=== PATIENT | male | born 1945 | race Caucasian/White ===

== ENCOUNTER 2019-09-11 16:10 | Inpatient (IN) | payer OTHER ==
[~2019-09-11] VITALS: Ht 177.8 cm; Wt 104.3 kg
[~2019-09-11 16:10] MED LIST: MELO7.5 PO; METO50ER PO
[2019-09-11 16:47] LABS: BASOPHILS ABSOLUTE AUTO 0.09 K/mm3 (0.00-0.23); BASOPHILS PERCENT AUTO 1 % (0-2); EOSINOPHILS ABSOLUTE AUTO 0.43 K/mm3 (0.00-0.68); EOSINOPHILS PERCENT AUTO 4 % (0-6); Hematocrit 40.9 % (37.0-53.0); Hemoglobin 12.7 g/dL (13.5-17.5); IMMATURE GRAN ABSOLUTE AUTO 0.45 K/mm3 (0.00-0.10); IMMATURE GRAN PERCENT AUTO 4 % (0-1); LYMPHOCYTES ABSOLUTE AUTO 2.83 K/mm3 (0.84-5.20); LYMPHOCYTES PERCENT AUTO 24 % (21-46); MONOCYTES ABSOLUTE AUTO 1.11 K/mm3 (0.16-1.47); MONOCYTES PERCENT AUTO 10 % (4-13); Mean Corpuscular HGB 31.2 pg (26.0-34.0); Mean Corpuscular HGB Conc 31.1 g/dL (31.5-36.5); Mean Corpuscular Volume 101 fL (80-100); Mean Platelet Volume 11.4 fL (9.1-12.4); NEUTROPHILS ABSOLUTE AUTO 6.74 K/mm3 (1.96-9.15); NEUTROPHILS PERCENT AUTO 58 % (41-73); NRBC ABSOLUTE 0.04 K/mm3 (0.00-0.02); NRBC Auto 0.3 /100 WBC (0.0-0.2); Platelet Count 197 K/mm3 (150-400); RDW Coefficient Variation 15.7 % (11.7-14.2); RDW Standard Deviation 58.4 fL (35.1-46.3); Red Blood Cell Count 4.07 M/mm3 (4.30-5.90); White Blood Cell Count 11.65 K/mm3 (4.00-11.30)
[2019-09-11 17:00] LABS: Alanine Aminotransfer (ALT/SGP 34 U/L (12-78); Albumin, Blood 3.6 g/dL (3.4-5.0); Alk Phos 121 U/L (50-136); Anion Gap 3 mmol/L (6-16); Aspartate Aminotrans (AST/SGOT 42 U/L (12-37); Bilirubin, Total 1.2 mg/dL (0.1-1.0); Blood Urea Nitrogen 10 mg/dL (8-24); Bun/Creatinine Ratio 15.5 (12.0-20.0); CO2, Blood 27 mmol/L (21-32); Calcium, Blood 8.5 mg/dL (8.5-10.1); Chloride, Blood 113 mmol/L (98-108); Creatinine, Blood 0.65 mg/dL (0.60-1.20); Globulin, Blood 3.5 g/dL (2.2-4.0); Glomerular Filtration Rate >60 (60-); Glucose, Blood 156 mg/dL (70-99); Potassium, Blood 3.4 mmol/L (3.5-5.5); Sodium, Blood 143 mmol/L (136-145); Total Protein, Blood 7.1 g/dL (6.4-8.2)
[2019-09-11 17:22] LABS: PCO2 Arterial 52.1 mmHg (35-45); PO2 Arterial 65.3 mmHg (80-100)
[2019-09-11 17:23] LABS: pH Blood Arterial 7.29 (7.35-7.45)
[2019-09-11] MEDS ORDERED: LISI20 PO (17:46)
[2019-09-11] MEDS ORDERED: ATOR40TA PO (17:46)
[2019-09-11] MEDS ORDERED: FURO20 PO (17:47)
[2019-09-11] MEDS ORDERED: PRAZ5 PO (17:47)
[2019-09-11] MEDS ORDERED: TIMO.5OPSO BOTHEYES (17:47)
[2019-09-11] MEDS ORDERED: ALBU90OI INH (17:49)
[2019-09-11] MEDS ORDERED: SPIRIVA RESPIMAT4 GM INH (17:49)
[2019-09-11] MEDS ORDERED: AMLO5 PO (17:50)
[2019-09-11] MEDS ORDERED: WARF5 PO (17:51)
[2019-09-11] MEDS ORDERED: Thera-M1 EACH PO (17:51)
[2019-09-11 18:02] LABS: International Normalized Ratio 2.69; Prothrombin Time Results 27.2 Sec (9.7-11.5)
[2019-09-11 18:55] LABS: Magnesium, Blood 2.1 mg/dL (1.6-2.4); Troponin I 0.042 ng/mL (0.000-0.040)
--- NOTE | 2019-09-11 19:00 | NUR ---
ASSUMED CARE NOTE: ASSUMED CARE OF PT @ 1900, RECEVIED BEDSIDE REPORT FROM TATUM BROWN. DR. LOPEZ AT BED SIDE AT THIS TIME. PT IS INTUBATED AND SEDATED WITH 40MCG/KG/MIN OF PROPOFOL. VENT SETTING @ AC18/450/10/100%, SPO2 90%. PT IS HAVING LARGE AMOUNTS OF THIN BLOOD TINGED SPUTUM. ORAL AND ET SUCTION PROVIDED. RT @ BEDSIDE. PT IS IN AFIB WITH A SLOW VENTRICULAR RESPONSE, PHYSICAN IS AWARE. PT'S HR IS BETWEEN 35-70'S. PT'S ABDOMEN IS DISTENDED AND FIRM. STRONG PLUSES TO BUE. SCHAEFFER PATENT AND DRAINING YELLOW URINE WITH SEDIMENT. SEE ADMISSION ASSSESSMENT FOR FULL ASSESSMENT. BILAT SOFT WRIST RESTRAINTS INITIATED TO PREVENT SELF- EXTUBATION.
--- NOTE | 2019-09-11 19:30 | NUR ---
AT BEDSIDE PREFORMING BRONCHOSCOPY. 50MCG OF FENTYNAL GIVEN FOR PROCEDURE. VITALS STABLE, HR IN THE 70'S. 2GRAMS OF MAGNESIUM GIVEN PER DR. DEL RIO.
[2019-09-11 20:30] LABS: BASOPHILS ABSOLUTE AUTO 0.04 K/mm3 (0.00-0.23); BASOPHILS PERCENT AUTO 0 % (0-2); EOSINOPHILS ABSOLUTE AUTO 0.11 K/mm3 (0.00-0.68); EOSINOPHILS PERCENT AUTO 1 % (0-6); Hematocrit 36.4 % (37.0-53.0); Hemoglobin 11.6 g/dL (13.5-17.5); IMMATURE GRAN ABSOLUTE AUTO 0.11 K/mm3 (0.00-0.10); IMMATURE GRAN PERCENT AUTO 1 % (0-1); LYMPHOCYTES ABSOLUTE AUTO 0.74 K/mm3 (0.84-5.20); LYMPHOCYTES PERCENT AUTO 5 % (21-46); MONOCYTES ABSOLUTE AUTO 1.57 K/mm3 (0.16-1.47); MONOCYTES PERCENT AUTO 10 % (4-13); Mean Corpuscular HGB 31.2 pg (26.0-34.0); Mean Corpuscular HGB Conc 31.9 g/dL (31.5-36.5); Mean Corpuscular Volume 98 fL (80-100); Mean Platelet Volume 11.6 fL (9.1-12.4); NEUTROPHILS ABSOLUTE AUTO 12.76 K/mm3 (1.96-9.15); NEUTROPHILS PERCENT AUTO 83 % (41-73); Platelet Count 182 K/mm3 (150-400); RDW Coefficient Variation 15.7 % (11.7-14.2); RDW Standard Deviation 56.5 fL (35.1-46.3); Red Blood Cell Count 3.72 M/mm3 (4.30-5.90); White Blood Cell Count 15.33 K/mm3 (4.00-11.30)
--- NOTE | 2019-09-11 21:00 | NUR ---
ORDERS GIVEN TO TRANSFUSE 2 UNITS OF FFP, AND VITAMIN K. VENT SETTINGS CHANGED TO AC18/450/12/80%. HR HAS BEEN STEADLY IN THE 50'S
[2019-09-11 21:48] LABS: Base Excess Venous 0.8 mmol/L; Bicarbonate Venous 24.6 mmol/L (24.0-30.0); PCO2 Venous 45.2 mmHg (38-42); PO2 Venous 53.6 mmHg (38-42); pH Blood Venous 7.37 (7.34-7.37)
--- NOTE | 2019-09-12 00:05 | NUR ---
UPDATE: PT'S VENT SETTINGS CHANGED TO AC18/450/12/70%, PER DR. LOPEZ. HR HAS BEEN BETWEEN 30-45.
[2019-09-12 03:50] LABS: Hematocrit 36.5 % (37.0-53.0); Hemoglobin 11.5 g/dL (13.5-17.5); Mean Corpuscular HGB 30.7 pg (26.0-34.0); Mean Corpuscular HGB Conc 31.5 g/dL (31.5-36.5); Mean Corpuscular Volume 98 fL (80-100); Mean Platelet Volume 11.5 fL (9.1-12.4); Platelet Count 174 K/mm3 (150-400); RDW Coefficient Variation 15.8 % (11.7-14.2); RDW Standard Deviation 56.4 fL (35.1-46.3); Red Blood Cell Count 3.74 M/mm3 (4.30-5.90); White Blood Cell Count 13.47 K/mm3 (4.00-11.30)
[2019-09-12 04:05] LABS: International Normalized Ratio 1.73
[2019-09-12 04:10] LABS: Anion Gap 6 mmol/L (6-16); Blood Urea Nitrogen 12 mg/dL (8-24); Bun/Creatinine Ratio 15.2 (12.0-20.0); CO2, Blood 28 mmol/L (21-32); Calcium, Blood 8.2 mg/dL (8.5-10.1); Chloride, Blood 113 mmol/L (98-108); Creatinine, Blood 0.79 mg/dL (0.60-1.20); Glomerular Filtration Rate >60 (60-); Glucose, Blood 106 mg/dL (70-99); Sodium, Blood 147 mmol/L (136-145)
[2019-09-12 04:35] LABS: Prothrombin Time Results 17.9 Sec (9.7-11.5)
--- NOTE | 2019-09-12 05:17 | NUR ---
SHIFT SUMMARY: SEE PREVIOUS NOTES. PT CONTINUES TO BE INTUBATED AND SEDATED WITH PROPOFOL @ 40MCG/KG/HR. VENT SETTINGS @ AC18/450/12/50%, SPO2 ABOVE 95%. PT HAS BEEN HAVING MODERATE AMOUNTS OF THICK BLOODY TINGED SPUTUM. OG TUBE IS SUCTIONED TO INTERMIT SUCTION, 900 TOTAL DRAINED, DRAINIAGE IS MAROON COLOREDM, COFFEE GROUNDS NOTED. PT CONTINUES TO HAVE EXCESSIVE AMOUNT OF ORAL SECRETIONS. BED AT 45 DEGRESS. PT HAS BEEN IN A-FIB WITH SVR, HR BETWEEN 35-55, AT TIMES IT HAS BEEN LOW 32 BPM. BP HAS BEEN STABLE. POTASSIUM REPLACEMNT IS CURRENTLY INFUSING. NS RUNNING @ 100ML/HR. SCHAEFFER IS NOW DRAINING ARIEL COLOR URINE WITH SEDIMENT. WILL CONTINUE TO MONITOR PT UNTIL REPORT IS GIVEN TO ONCOMING SHIFT.
--- NOTE | 2019-09-12 07:05 | NUR ---
DR. JESIKA CANCHOLA ROUNDED ON PT. DISCUSSED CASE. PT WILL NEED AICD PRIOR TO DISCHARGE. DISCUSSED POSSIBLE TEMPORARY PACEMAKER PLACEMENT. WILL RE-ASSESS PT LATER. WILL CALL WITH ANY NOTED PAUSES OR WORSENING BRADYCARDIA.
--- NOTE | 2019-09-12 08:00 | NUR ---
ASSUMED CARE ASSUMED CARE OF PT AT 0700. BEDSIDE REPORT RECEIVED FROM TATUM BIRD. PT INTUBATED AND SEDATED. VENT SETTINGS AC 18, TV 450, PEEP 12, FIO2 100%, SATS MID 90'S. MONITOR SHOWS A FIB WITH BRADYCARDIA, HR MOSTLY 40'S-50'S, OCCASIONAL DIPS TO THE 30'S, BP STABLE WITH MAP >65. LUNG SOUNDS CLEAR UPPERS, COARSE IN LOWER LOBES. OG TUBE IN PLACE TO LOW INT SUCTION, SMALL AMT COFFEE GROUND MATERIAL IN TUBE. ABDOMEN ROUND, FIRM, BT'S HYPOACTIVE. PT HAS SCHAEFFER CATHETER IN PLACE DRAINING ARIEL/GREEN URINE TO GRAVITY. [address] WITH PROPOFOL INFUSING AT 40MCG/KG AND NS AT 100ML/HR. JOSE MIGUEL SOFT WRIST RESTRAINTS IN PLACE TO PROTECT LINES, TUBES. WILL CONTINUE TO MONITOR PT.
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
--- NOTE | 2019-09-12 10:30 | NUR ---
DR. XAVIER PARK ROUNDED ON PT. DECREASED PEEP TO 10. NO ADDITIONAL ORDERS RECEIVED AT THIS TIME.
--- NOTE | 2019-09-12 13:27 | NUR ---
EMANATIONS ANALYSIS TECHNICIAN EMANATIONS ANALYSIS TECHNICIAN TATUM BHATIA AND ALBERTO HERE TO TRANSPORT PT DOWN TO LAB FOR TEMPORARY PACEMAKER INSERTION. RT ACCOMPANYING ON TRANSPORT. VITAL SIGNS STABLE ON TRANSPORT. PROPOFOL INFUSING AT 40 MCG/KG AND NS AT 100ML/HR.
--- NOTE | 2019-09-12 15:38 | NUR ---
PT RECEIVED BACK FROM SHUTTLE OPERATOR WITH TRANSVENOUS PACEMAKER TO [facility]. PACER SETTINGS VVI RATE 60, 10 MV AND 10V. MONITOR SHOWING INTERMITTENT PACING, HR 60-80'S. BP STABLE.
--- NOTE | 2019-09-12 15:57 | NUR ---
NOTED LOSS OF CAPTURE INTERMITTENTLY. CALL TO DR CANCHOLA. ORDERS FOR CHEST XRAY TO VERIFY PLACEMENT.
--- NOTE | 2019-09-12 18:11 | NUR ---
SHIFT SUMMARY PT CONTINUES INTUBATED AND SEDATED, VENT SETTINGS AC 18 TV 400 PEEP 10 FIO2 50%. PT WITHDRAWS TO PAIN, MOVES HEAD, GRIMACES WITH CARE, DOES NOT FOLLOW ANY COMMANDS. PT WENT TO STATE APPELLATE CLERK AND HAD TRANSVENOUS PACER PLACED TO [facility] - SETTINGS VVI R 60, V 10, MV 5. PT INTERMITTENTLY PACED WITH RATE 60-70'S, BP STABLE. OG CONTINUES TO LOW INT SUCTION WITH 200ML DARK RED COFFEE OUTPUT - DR JOSHUA AND XAVIER AWARE. SCHAEFFER DRAINING PALE GREEN/ARIEL COLORED URINE TO GRAVITY - 350 ML OUT THIS SHIFT. PROPOFOL CONTINUES AT 40MCG/KG T/O SHIFT, NS AT 100ML/HR. JOSE MIGUEL SOFT WRIST RESTRAINTS IN PLACE. WILL CONTINUE TO MONITOR PT CLOSELY AND GIVE HANDOFF TO ONCOMING SHIFT.
--- NOTE | 2019-09-12 22:16 | NUR ---
ASSUMED CARE OF PT AT 1900. BEDSIDE REPORT GIVEN, I-TRACE PERFORMED. PT RESPONSIVE TO PAIN. FENTANYL GIVEN BEFORE BED BATH AND REPOSITION, PT WOKE AND MOVING ARMS. PT RELAXED WHEN STIMULATION REMOVED. VENT SETTINGS 16 RR/ 450 TV/ PEEP 10/ 50% FIO2.
[2019-09-13 03:41] LABS: Base Excess Venous 1.6 mmol/L; Bicarbonate Venous 25.2 mmol/L (24.0-30.0); PCO2 Venous 42.8 mmHg (38-42); PO2 Venous 41.9 mmHg (38-42)
[2019-09-13 03:58] LABS: BASOPHILS ABSOLUTE AUTO 0.04 K/mm3 (0.00-0.23); BASOPHILS PERCENT AUTO 0 % (0-2); EOSINOPHILS ABSOLUTE AUTO 0.05 K/mm3 (0.00-0.68); EOSINOPHILS PERCENT AUTO 0 % (0-6); Hematocrit 35.9 % (37.0-53.0); Hemoglobin 11.3 g/dL (13.5-17.5); IMMATURE GRAN ABSOLUTE AUTO 0.05 K/mm3 (0.00-0.10); IMMATURE GRAN PERCENT AUTO 0 % (0-1); LYMPHOCYTES ABSOLUTE AUTO 1.12 K/mm3 (0.84-5.20); LYMPHOCYTES PERCENT AUTO 8 % (21-46); MONOCYTES ABSOLUTE AUTO 1.46 K/mm3 (0.16-1.47); MONOCYTES PERCENT AUTO 11 % (4-13); Mean Corpuscular HGB Conc 31.5 g/dL (31.5-36.5); Mean Corpuscular Volume 98 fL (80-100); Mean Platelet Volume 11.5 fL (9.1-12.4); NEUTROPHILS ABSOLUTE AUTO 10.75 K/mm3 (1.96-9.15); NEUTROPHILS PERCENT AUTO 80 % (41-73); Platelet Count 181 K/mm3 (150-400); RDW Coefficient Variation 15.8 % (11.7-14.2); RDW Standard Deviation 56.2 fL (35.1-46.3); Red Blood Cell Count 3.65 M/mm3 (4.30-5.90); White Blood Cell Count 13.47 K/mm3 (4.00-11.30)
[2019-09-13 04:07] LABS: Alanine Aminotransfer (ALT/SGP 28 U/L (12-78); Albumin, Blood 2.8 g/dL (3.4-5.0); Albumin/Globulin Ratio 0.9 (0.8-1.8); Alk Phos 90 U/L (50-136); Anion Gap 7 mmol/L (6-16); Aspartate Aminotrans (AST/SGOT 30 U/L (12-37); Bilirubin, Total 1.6 mg/dL (0.1-1.0); Blood Urea Nitrogen 15 mg/dL (8-24); Bun/Creatinine Ratio 18.1 (12.0-20.0); CO2, Blood 26 mmol/L (21-32); CPK Creatine Kinase 208 U/L (39-308); Calcium, Blood 7.9 mg/dL (8.5-10.1); Chloride, Blood 114 mmol/L (98-108); Creatinine, Blood 0.83 mg/dL (0.60-1.20); Globulin, Blood 3.2 g/dL (2.2-4.0); Glomerular Filtration Rate >60 (60-); Glucose, Blood 117 mg/dL (70-99); Magnesium, Blood 2.4 mg/dL (1.6-2.4); Phosphorus, Blood 3.1 mg/dL (2.5-4.9); Potassium, Blood 3.1 mmol/L (3.5-5.5); Sodium, Blood 147 mmol/L (136-145)
[2019-09-13 04:14] LABS: International Normalized Ratio 1.21; Prothrombin Time Results 12.8 Sec (9.7-11.5)
--- NOTE | 2019-09-13 04:22 | NUR ---
WITH 0400 ASSESSMENT, PT BREATH SOUNDS WERE WORSE, WITH WHEEZING THROUGHOUT, AND WORK OF BREATHING INCREASED. DOCTOR MIKEL NOTIFIED, AND ORDERS RECEIVED.
--- NOTE | 2019-09-13 06:37 | NUR ---
PT HAD SIGNS OF PAIN WHEN REPOSITIONED, EASED WITH MEDICATION. PT BREATH SOUNDS WORSE, LASIX GIVEN, NOW PT NO LONGER HAS LABORED BREATHING. HOWEVER, PT'S BREATH SOUNDS ARE STILL WHEEZING IN ALL QUADS.
--- NOTE | 2019-09-13 07:39 | NUR ---
Received report from Azeb WINN. Patient lying right side with HOB at 30 degrees. He is intubated with 8.0 ET and is 26 cm at lips with settings of AC 18, TV 450, FiO2 50% and PEEP 10 and sats 94%. Is is sedated on Propofol. His pupils are 3, left brisk and right sluggish and looks to of had some cataract repair. He has thick moderate jim secretion with ET suction. He has temp frazier draining to gravity cleare yellow urinethat has increased post lasix. His temp 99.0. He has trans venous pacer in right side neck/subclavin and is mostly ventrical paced in the 60's. He has 18ga IV FS RAC, dressing intact and site WNL's and is infusing NS TKO and second potassium rider. He also has 18ga IV RFA dressing intact and site WNL's infusing Propofol at 40 mcg/kg/min. Third IV LFA 18ga with dressing intact and site WNL's in flushed with 10cc NS and SL'd. He has bilateral Calf SCD's in place. Oral care done.
--- NOTE | 2019-09-13 10:41 | NUR ---
ASSUMED CARE AT THIS TIME PT. REMAINS SEDATED AND INTUBATED. CURRENT VENT SETTINGS ON AC 18, TV450, 45%, PEEP 10. PT. SEDATED ON 40MCG/KG/MIN OF PROPOFOL. PT. PUPILS ARE 3 REACTIVE TO LIGHT RIGHT PUPIL OVAL SHAPED. PT. HAS SMALL AMOUNT OF THICK SECREATIONS FROM ETT. LS WHEEZES BILAT. PT. HAS TRANSVENOUS PACER TO RIJ. PACER SETTINGS VVI RATE 60, 5MV, 10V, MONITOR DISPLAYS OCCASIONAL PACED BEATS WITH HR 60S-70S. DRESSING REINFORCED. PT BP STABLE WITH MAP >65 AT THIS TIME. PT. HAS OG IN PLACE TO LOW INT. SUCTION WITH YELLOW COFFE GROUND SECREATIONS FROM OG TUBE. HYPERACTIVE BT. PT. HAS MODERATE EDEMA TO EXTREM AND SCROTUM. SCHAEFFER TEMP PROBE IN PLACE DRAINING ARIEL URINE TO GRAVITY. BILAT SOFT WRIST RESTRAINTS IN PLACE FOR SAFETY.
--- NOTE | 2019-09-13 14:32 | NUR ---
SEDATION VACATION PT. SEDATION PLACED ON STAND BY FOR 20 MIN, PT OPENED EYES AND ABLE TO SQUEEZE HANDS TO COMMAND. PT. SHAKES HEAD YES TO PAIN, MED WITH 50MCG OF FENTANYL PER DR. ORDER. PT RR INCREASED TO 30, AND PT. CONTINUALLY COUGHING ON VENT. SEDATION RESTARTED FOR COMFORT. PLANS FOR TUBE FEEDING TO BE INITIATED TODAY. TYLENOL GIVEN FOR TEMP OF 100.0, FAMILY UPDATED.
--- NOTE | 2019-09-13 16:50 | NUR ---
TF STARTED PER DR. LAIRD
--- NOTE | 2019-09-13 17:50 | NUR ---
SHIFT SUMMARY PT. REMAINS SEDATED AND INTUBATED. TEMPORARY PACER IN PLACE. DR. LOAIZA IN TODAY TO SEE PT. NO NEW ORDERS. PT. FOLLOWS COMMANDS DURING SEDATION VACATION AND ABLE TO ANSWER YES AND NO TO QUESTIONS, RESEDATED FOR COMFORT. PT. MED ONCE FOR PAIN AND ONCE WITH TYLENOL FOR TEMP INCREASING TO 100.4 TMAX. NO ACUTE CHANGES T/O SHIFT. VSS. FAMILY UPDATED. REPORT TO ONCOMING RN.
--- NOTE | 2019-09-13 19:58 | NUR ---
ASSUMED CARE OF PT AT 1900. PT IS SEDATED, INTUBATED. VENT SETTINGS 18 RR/ 450TV/ PEEP 10/ 45% FIO2. I-TRACE PERFORMED, PROPOFOL SITE WNL IN RIGHT AC. SCDs IN PLACE, BILAT SOFT WRIST RESTRAINTS. BREATH SOUNDS ARE IMPROVING, MOST EDEMA IS IMPROVING, HOWEVER ANASARCA IS SLIGHTLY WORSE. TRANSVENOUS PACED @ 5MV, MIN RATE 60, THROUGH RIGHT IJ.
[2019-09-13 20:20] LABS: Source, Urine Catheter
[2019-09-13 20:22] LABS: Appearance, Urine Hazy (Clear); Bilirubin, Urine Neg (Neg); Blood, Urine 1+ (Neg); Color, Urine Yellow (P-Yellow); Glucose Qualitative, Urine Neg (Neg); Ketones, Urine 1+ (Neg); Leukocyte Esterase, Urine 1+ (Neg); Nitrite, Urine Neg (Neg); Protein, Urine 2+ (Neg); Urobilinogen, Urine 1+ (Normal)
[2019-09-13 20:32] LABS: Amorphous Mod (0-Heavy); Bacteria Many /hpf; Mucus Light (0-Heavy); Spermatozoa Few /hpf; Squamous Epithelial Cells Rare /hpf (Few)
[2019-09-14 04:39] LABS: BASOPHILS ABSOLUTE AUTO 0.08 K/mm3 (0.00-0.23); BASOPHILS PERCENT AUTO 1 % (0-2); EOSINOPHILS ABSOLUTE AUTO 0.31 K/mm3 (0.00-0.68); EOSINOPHILS PERCENT AUTO 2 % (0-6); Hematocrit 39.1 % (37.0-53.0); Hemoglobin 12.1 g/dL (13.5-17.5); IMMATURE GRAN ABSOLUTE AUTO 0.06 K/mm3 (0.00-0.10); IMMATURE GRAN PERCENT AUTO 1 % (0-1); LYMPHOCYTES ABSOLUTE AUTO 1.25 K/mm3 (0.84-5.20); LYMPHOCYTES PERCENT AUTO 9 % (21-46); MONOCYTES ABSOLUTE AUTO 1.73 K/mm3 (0.16-1.47); MONOCYTES PERCENT AUTO 13 % (4-13); Mean Corpuscular HGB 30.6 pg (26.0-34.0); Mean Corpuscular HGB Conc 30.9 g/dL (31.5-36.5); Mean Corpuscular Volume 99 fL (80-100); Mean Platelet Volume 11.1 fL (9.1-12.4); NEUTROPHILS ABSOLUTE AUTO 9.86 K/mm3 (1.96-9.15); NEUTROPHILS PERCENT AUTO 74 % (41-73); Platelet Count 202 K/mm3 (150-400); RDW Coefficient Variation 15.9 % (11.7-14.2); RDW Standard Deviation 57.8 fL (35.1-46.3); Red Blood Cell Count 3.96 M/mm3 (4.30-5.90); White Blood Cell Count 13.29 K/mm3 (4.00-11.30)
[2019-09-14 04:52] LABS: International Normalized Ratio 1.33
[2019-09-14 05:06] LABS: Alanine Aminotransfer (ALT/SGP 24 U/L (12-78); Albumin, Blood 2.8 g/dL (3.4-5.0); Albumin/Globulin Ratio 0.8 (0.8-1.8); Alk Phos 91 U/L (50-136); Anion Gap 5 mmol/L (6-16); Aspartate Aminotrans (AST/SGOT 21 U/L (12-37); Bilirubin, Total 1.6 mg/dL (0.1-1.0); Blood Urea Nitrogen 13 mg/dL (8-24); Bun/Creatinine Ratio 16.5 (12.0-20.0); CO2, Blood 27 mmol/L (21-32); Calcium, Blood 8.1 mg/dL (8.5-10.1); Chloride, Blood 114 mmol/L (98-108); Creatinine, Blood 0.79 mg/dL (0.60-1.20); Globulin, Blood 3.6 g/dL (2.2-4.0); Glomerular Filtration Rate >60 (60-); Glucose, Blood 128 mg/dL (70-99); Magnesium, Blood 2.5 mg/dL (1.6-2.4); Phosphorus, Blood 2.5 mg/dL (2.5-4.9); Potassium, Blood 3.1 mmol/L (3.5-5.5); Sodium, Blood 146 mmol/L (136-145); Total Protein, Blood 6.4 g/dL (6.4-8.2)
--- NOTE | 2019-09-14 07:39 | NUR ---
Pt had an episode of loss of oxygen sat, requiring a raise in fio2 on vent to 100%. This has been titrated down to 60%, and pt is tolerating. Pt fights vent, but settles with fentanyl. Anasarca has become progressively worse, but edema elsewhere has stabilized.
--- NOTE | 2019-09-14 08:34 | NUR ---
ASSUMED CARE OF PT AT 0700. BEDSIDE REPORT FROM MARGY WINN. PT INTUBATED AND SEDATED. VENT SETTINGS AC 18/450/8/60% AT START OF SHIFT. PROPOFOL INFUSING AT 40 MCG/KG/MIN. PT RESPONSES TO PAINFUL STIMULI. COUGH REFLEX c SUCTIONING. MODERATE AMOUNT OF PETERSEN SECRETIONS THROUGH ETT. PT'S RIGHT EYE HAS TEAR SHAPED PUPIL. PT GRIMACES c CARE. LUNGS CLEAR THROUGHOUT. TRANVENOUS PACEMAKER VIA RIJ. SET RATE 60, 5mV. AFIB ON MONITOR c PVCS, NOT 100% PACED, PER NOC RN, CARDIOLOGY AWARE. BP STABLE. ABD FIRM, DISTENDED, BT HYPOACTIVE. TUBE FEEDINGS INFUSING AT GOAL OF 35 ML/HR c 30 ML FLUSH q4. RESIDUALS 70 THIS AM. DEPENDENT EDEMA TO SCROTUM, THIGHS, HANDS AND LOWER EXTREMITIES. TEMP PROBE SCHAEFFER IN PLACE, DRAINING ARIEL URINE c SEDIMENT. SCDS IN PLACE. WILL CONTINUE TO MONITOR.
--- NOTE | 2019-09-14 10:48 | NUR ---
SEDATION VACATION PROPOFOL PLACED ON STANDBY FOR APPROX 12 MINUTES. PT ABLE TO OPEN EYES, WIGGLES TOES ON COMMAND. BEGAIN COUGHING ON VENTILATOR. SEDATION RESUMED.
--- NOTE | 2019-09-14 17:30 | NUR ---
SHIFT SUMMARY PT REMAINS INTUBATED AND SEDATED. VENT SETTINGS AC 18/450/8/50%. PROPOFOL INFUSING AT 40 MCG/KG/MIN. LUNGS CLEAR, THICK PETERSEN SECRETIONS THROUGH ETT. TRANSVENOUS PACER IN PLACE, NO ADJUSTMENTS MADE THIS SHIFT. TUBE FEEDINGS CONTINUE AT GOAL, RESIDUALS <70ML THIS SHIFT. 800ML OF GREEN/BROWN CLEAR URINE OUT. SCHAEFFER PATENT AND DRAINING TO GRAVITY. PT CONTINUES TO HAVE PITTING DEPENDENT EDEMA TO SCROTUM, HANDS AND THIGHS. VSS. WILL CONTINUE TO MONITOR UNTIL REPORT TO ONCOMING NURSE.
--- NOTE | 2019-09-14 19:30 | NUR ---
ASSUMED CARE PT. REMAINS SEDATED AND INTUBATED. PT. HAS FACIAL GRIMACE TO PAIN. PT. VENT SETTINGS AC 16, TV 450, 55% PEEP 8. LS CLEAR T/O DIM IN BASES. PT. HAS THICK BROWN SECRETIONS FROM ETT. TRANSVENOUS PACER REMAINS IN PLACE, DRESSING INTACT, MARKING UNCHANGED. PT. OCCASIONALLY PACED WITH AFIB UNDERLYING. PT. PACER SETTINGS UNCHANGED WITH RATE OF 60, MV 5, V 10, MODE VVI. PT. TF REMAINS INFUSING AT 35ML/HR WHICH IS GOAL WITH FLUSH 30 Q4. PT. RESIDUAL OF 50 REINSTILLED. ABD. DISTENDED BUT SOFT, PITTING EDEMA T/O. PT. HAS TEMP SCHAEFFER IN PLACE DRAINING TO GRAVITY, TEMP OF 100.0 TYLENOL GIVEN BY OFFGOING GERSON DIANE. BILAT WRIST RESTRAINTS IN PLACE.
--- NOTE | 2019-09-15 00:38 | NUR ---
FIELD START IVS REMOVED AND POWERGLIDE PLACED TO LEFT BASILIC.
[2019-09-15 03:16] LABS: BASOPHILS ABSOLUTE AUTO 0.01 K/mm3 (0.00-0.23); BASOPHILS PERCENT AUTO 0 % (0-2); EOSINOPHILS PERCENT AUTO 0 % (0-6); Hematocrit 32.6 % (37.0-53.0); Hemoglobin 10.3 g/dL (13.5-17.5); IMMATURE GRAN ABSOLUTE AUTO 0.05 K/mm3 (0.00-0.10); IMMATURE GRAN PERCENT AUTO 1 % (0-1); LYMPHOCYTES ABSOLUTE AUTO 0.31 K/mm3 (0.84-5.20); LYMPHOCYTES PERCENT AUTO 4 % (21-46); MONOCYTES ABSOLUTE AUTO 0.17 K/mm3 (0.16-1.47); MONOCYTES PERCENT AUTO 2 % (4-13); Mean Corpuscular HGB 30.6 pg (26.0-34.0); Mean Corpuscular HGB Conc 31.6 g/dL (31.5-36.5); Mean Corpuscular Volume 97 fL (80-100); Mean Platelet Volume 10.9 fL (9.1-12.4); NEUTROPHILS ABSOLUTE AUTO 7.81 K/mm3 (1.96-9.15); NEUTROPHILS PERCENT AUTO 94 % (41-73); Platelet Count 214 K/mm3 (150-400); RDW Coefficient Variation 15.9 % (11.7-14.2); RDW Standard Deviation 56.4 fL (35.1-46.3); Red Blood Cell Count 3.37 M/mm3 (4.30-5.90); White Blood Cell Count 8.35 K/mm3 (4.00-11.30)
[2019-09-15 03:31] LABS: International Normalized Ratio 1.51; Prothrombin Time Results 15.8 Sec (9.7-11.5)
[2019-09-15 03:32] LABS: Anion Gap 4 mmol/L (6-16); Blood Urea Nitrogen 15 mg/dL (8-24); Bun/Creatinine Ratio 20.1 (12.0-20.0); CO2, Blood 29 mmol/L (21-32); Calcium, Blood 7.8 mg/dL (8.5-10.1); Chloride, Blood 114 mmol/L (98-108); Creatinine, Blood 0.75 mg/dL (0.60-1.20); Glomerular Filtration Rate >60 (60-); Glucose, Blood 168 mg/dL (70-99); Potassium, Blood 3.7 mmol/L (3.5-5.5); Sodium, Blood 147 mmol/L (136-145)
[2019-09-15 05:07] LABS: PCO2 Arterial 42.7 mmHg (35-45); PO2 Arterial 69.8 mmHg (80-100); pH Blood Arterial 7.45 (7.35-7.45)
--- NOTE | 2019-09-15 05:44 | NUR ---
SHIFT SUMMARY PT. REMAINS SEDATED AND INTUBATED. PT REQUIRING HIGHER FIO2 T/O NIGHT FROM 45% NOW UP TO 80% FIO2. LS REMAIN CLEAR, DIM IN BASES. PT CONTINUES TO TOLERATE TF WITH RESIDUALS <50 T/O SHIFT. VSS AT THIS TIME, REPORT TO ONCOMING RN.
--- NOTE | 2019-09-15 08:00 | NUR ---
ASSUMED CARE OF PT AT 0700. BEDSIDE REPORT FROM ALEXANDRIA WINN. PT INTUBATED AND SEDATED. VENT SETTINGS AC 18/450/8/80%. PROPOFOL INFUSING AT 40 MCG/KG/MIN. PT RESPONSES TO PAINFUL STIMULI, GRIMACES c CARE. COUGH c SUCTIONING, NO GAG REFLEX. LUNGS DIMINISHED IN BASES, WORSE ON LEFT. PETERSEN SECRETIONS FROM ETT. TRANSVENOUS PACER TO RIJ, DRESSING SECURE, NO MOVEMENT IN LINES FROM ORIGINAL PLACEMENT. SETTINGS RATE 60, mV 5, V 10, MODE VVI. AFIB c PVCS UNDERLYING, NOT 100% PACED. ABD ROUND, FIRM, DISTENDED. BT HYPOACTIVE. PIVOT 1.5 AT GOAL OF 35 ML/HR c 30ML q4 HR FLUSHES, 40ML RESIDUAL REINSTILLED THIS AM. POWERGLIDE TO LUE. TEMP PROBE SCHAEFFER PATENT, DRAINING YELLOW/GREEN URINE c SEDIMENT TO GRAVITY. EXTREMITIES EDEMATOUS. PITTING EDEMA TO THIGHS, HANDS, DEPENDENT EDEMA TO SCROTUM. VSS. WILL CONTINUE TO MONITOR.
--- NOTE | 2019-09-15 11:35 | NUR ---
DR PARK/ SEDATION VACATION DR PARK AT BEDSIDE. PLAN FOR REPEAT H&H AND POSSIBLE CT SCAN IF LEVELS CONTINUE TO DECREASE. PLAN TO INCREASE LASIX DOSE. LUNGS MORE DECREASED IN BASES THAN YESTERDAY. SEDATION OFF FOR APPROX 15 MINUTES. PT ABLE TO SQUEEZE HANDS, WIGGLE TOES. PT GRIMACING. INCREASED RESP RATE, COUGHING ON VENT. SEDATION RESUMED.
[2019-09-15 12:44] LABS: Hematocrit 34.5 % (37.0-53.0); Hemoglobin 10.9 g/dL (13.5-17.5)
--- NOTE | 2019-09-15 16:56 | NUR ---
SHIFT SUMMARY PT REMAINS INTUBATED AND SEDATED. VENT SETTINGS AC 18/450/10/75%. PROPOFOL INFUSING AT 40 MCG/KG/MIN ENTIRE SHIFT OTHER THAN SEDATION VACATION. PEEP TURNED UP TO [address] PARK c GOAL TO DECREASE FIO2. LUNGS REMAIN DECREASED IN BASES. TUBE FEEDING DECREASED TO 25 ML/HR, DIURETICS INCREASED THIS SHIFT c INCREASED OUTPUT. PACER REMAINS IN PLACE c NO ADJUSTMENTS TO SETTINGS. REPEAT H&H COMPLETED THIS SHIFT AFTER AM LABS TRENDED DOWN, NOON LABS IMPROVED. VSS. WILL CONTINUE TO MONITOR AND REPORT TO ONCOMING NURSE.
--- NOTE | 2019-09-15 17:51 | NUR ---
UPDATE-DR PARK AT BEDSIDE. O2 SATS REMAIN 94% p INCREASING PEEP. DR PARK PLANS TO ORDER U/S AND POSSIBLE THORECENTESIS. BEDSIDE U/S COMPLETE. NO IMMEDIATE INTERVENTION NEEDED. U/S TO BE ORDERED TOMORROW. DRESSING TO TRANSVENOUS PACER REINFORCED.
--- NOTE | 2019-09-15 19:30 | NUR ---
PATIENT AWAKE AND RESTLESS, ETT IN PLACE WITH VENT SET AT AC 14, TV 500, PEEP 5, FIO2 45%. SUCTIONING THICK YELLOW SPUTUM VIA ETT. PROPOFOL AT 50 MCG, ATIVAN GIVEN TO HELP PATIENT RELAX. PATIENT INCONT OF LIQUID BROWN STOOL, ABD SOFT BOWEL TONES HYPERACTIVE. OG IN PLACE WITH TUBE FEEDING AT 25 CC/HR, PLAN TO INCREASE RATE TO GOAL OF 45 CC/HR PATIENT ESTELLA. MAEW AND NODDING YES AND NO QUESTIONS.
--- NOTE | 2019-09-15 20:00 | NUR ---
PATIENT RESTING QUIETLY INTUBATED AND SEDATED. ETT IN PLACE WITH VENT SET AT AC 16, TV 450, PEEP 10, FIO2 75%. PROPOFOL AT 40MCG FOR SEDATION. PATIENT GRIMACING WITH CARE, NOT FOLLOWING DIRECTIONS. BILAT WRIST RESTRAINTS IN PLAC TO PREVENT ACCIDENTAL EXTUBATION. OG IN PLACE WITH TUBE FEEDING PIVIT 1.5 AT GOAL RATE OF 25/HR. GENERALIZED EDEMA. TRANSVENOUS PACER INCRETION SITE TO RIGHT CHEST. DRESSING CD&I, MONITOR SHOWING PACED RHYTHM SET AT 60, APROX 90% PACED DUE TO PATIENTS OWN INCREASED RATE TO THE 70'S.
[2019-09-16 04:11] LABS: BASOPHILS ABSOLUTE AUTO 0.01 K/mm3 (0.00-0.23); BASOPHILS PERCENT AUTO 0 % (0-2); EOSINOPHILS PERCENT AUTO 0 % (0-6); Hematocrit 33.6 % (37.0-53.0); Hemoglobin 10.8 g/dL (13.5-17.5); IMMATURE GRAN ABSOLUTE AUTO 0.09 K/mm3 (0.00-0.10); IMMATURE GRAN PERCENT AUTO 1 % (0-1); LYMPHOCYTES ABSOLUTE AUTO 0.39 K/mm3 (0.84-5.20); LYMPHOCYTES PERCENT AUTO 3 % (21-46); MONOCYTES ABSOLUTE AUTO 0.58 K/mm3 (0.16-1.47); MONOCYTES PERCENT AUTO 5 % (4-13); Mean Corpuscular HGB 31.3 pg (26.0-34.0); Mean Corpuscular HGB Conc 32.1 g/dL (31.5-36.5); Mean Corpuscular Volume 97 fL (80-100); Mean Platelet Volume 10.5 fL (9.1-12.4); NEUTROPHILS ABSOLUTE AUTO 10.53 K/mm3 (1.96-9.15); NEUTROPHILS PERCENT AUTO 91 % (41-73); NRBC ABSOLUTE 0.03 K/mm3 (0.00-0.02); NRBC Auto 0.3 /100 WBC (0.0-0.2); Platelet Count 261 K/mm3 (150-400); RDW Coefficient Variation 15.9 % (11.7-14.2); RDW Standard Deviation 56.2 fL (35.1-46.3); Red Blood Cell Count 3.45 M/mm3 (4.30-5.90)
[2019-09-16 04:26] LABS: International Normalized Ratio 1.42; Prothrombin Time Results 14.9 Sec (9.7-11.5)
[2019-09-16 04:29] LABS: Anion Gap 4 mmol/L (6-16); Blood Urea Nitrogen 22 mg/dL (8-24); Bun/Creatinine Ratio 27.9 (12.0-20.0); CO2, Blood 32 mmol/L (21-32); Calcium, Blood 8.1 mg/dL (8.5-10.1); Chloride, Blood 112 mmol/L (98-108); Creatinine, Blood 0.79 mg/dL (0.60-1.20); Glomerular Filtration Rate >60 (60-); Glucose, Blood 173 mg/dL (70-99); Lactate Dehydrogenase (Ld),Bld 209 U/L (100-240); Magnesium, Blood 2.3 mg/dL (1.6-2.4); Potassium, Blood 3.5 mmol/L (3.5-5.5); Sodium, Blood 148 mmol/L (136-145); Total Protein, Blood 6.2 g/dL (6.4-8.2)
--- NOTE | 2019-09-16 06:00 | NUR ---
SUMMARY PATIENT REMAINS INTUBATED AND SEDATED WITH PROPOFOL TITRATED TO 35MCG, VENT SETTINGS REMAIN UNCHANGED T/O THE NIGHT. OG REMAINS IN PLACE WITH TUBE FEEDING AT GOAL OF 25/HR WITH NO RESIDUAL. RESTRAINTS REMAIN IN PLACE TO PREVENT ACCIDENTAL EXTUBATION DUE TO UNPREDICTABLE SEDATION AND BEHAVIOR.
--- NOTE | 2019-09-16 06:57 | NUR ---
Received report from aKssy Rivera He is intubated with 8.0 ET and 26cm at lips, his setting are AC 18, TV 450, FiO2 75% and PEEP 10.0o and sats mid 90%'s. He is withdrawls from pain and minimal gross motor to extremities. He has OG in place and is infusing Pivot 1.5 at 25ml/hr and 30ml/hr Q4 and in report no residuals. He has transvenous pacer to [facility] and is secure and has 2 black wilkerson to verify position and remains intact.He has 18ga Powerglide OMAR, dressing intact and site WNL's and has NS TKO.. He also has 18ga RFA dressining intact and site WNL's and is infusing Propofol 35 mcg/kg/min. He has Dowell temp in place draining dark erik gravity and has temp 98.2. He has SCD's in place and NOC RN gave break r/t deep indentations from pressure points of newer SCD's.
--- NOTE | 2019-09-16 10:34 | NUR ---
US by to do fluid check before thorascentesis. Repositioned . Oral care done. Propofol remains at 35mcg/kg/min.No vent setting changes. Dr Dumont in room assessing and states will be doing lasix gtt for fluid overload. Restraints checked released for circulation and passive ROM and reapplied.
--- NOTE | 2019-09-16 12:12 | NUR ---
Patient started on Lasix gtt and D5 at 75ml/hr. No other changes. Radiology has decided to not do thora and notified Dr Dumont and he is OK with it. Dr Dumont wants titrated to 150ml urine output an hour.
--- NOTE | 2019-09-16 14:00 | NUR ---
Increased lasix gtt to 7mg/hr for drop in urine output less than 150ml/hr. No significant changes with Patient. Updated Lana his sister over phone. He is continued paceed in the 60's, Dr López by no changes and does not want dressing changes if clean.
--- NOTE | 2019-09-16 17:52 | NUR ---
Patient has vent settings AC 18, TV 450, FiO2 now at 70% and PEEP 10.0 with sats low 90%'s.D% continues in OMAR powerGlide at 75ml/hr and Propofol continues in RFA 18ga at 35 mcg/kg/min. He also has Lasix drip that continues at 7mg/h for urine with min. output 150ml/hr. No change at pacer site and dressing intact and site WNL and line between black wilkerson and has not moved. TF has been changed Vital High Protien at 20ml/hr with no residuals. No changes in mental status withdrawls to oral care and positioning. SCD in place bilateral LE's.
--- NOTE | 2019-09-16 19:58 | NUR ---
ASSUMED CARE OF PT AT 1900 FROM MOHAN WINN. BEDSIDE REPORT GIVEN, I-TRACE PERFORMED. PT IS LEFT FACING, VENTED, AND SEDATED. VENT SETTINGS ARE 18 RR/ 450 TV/ PEEP 10/ 70% FIO2. PT IS TRASNVENOUS PACED AT 5MV WITH MIN HR 60 THROUGH RIGHT IJ. DRESSING MARKED WITH LINE LOCATION.
[2019-09-17 03:38] LABS: BASOPHILS ABSOLUTE AUTO 0.01 K/mm3 (0.00-0.23); BASOPHILS PERCENT AUTO 0 % (0-2); EOSINOPHILS ABSOLUTE AUTO 0.01 K/mm3 (0.00-0.68); EOSINOPHILS PERCENT AUTO 0 % (0-6); Hematocrit 33.3 % (37.0-53.0); Hemoglobin 10.7 g/dL (13.5-17.5); IMMATURE GRAN PERCENT AUTO 1 % (0-1); LYMPHOCYTES ABSOLUTE AUTO 0.53 K/mm3 (0.84-5.20); LYMPHOCYTES PERCENT AUTO 4 % (21-46); MONOCYTES ABSOLUTE AUTO 1.01 K/mm3 (0.16-1.47); MONOCYTES PERCENT AUTO 8 % (4-13); Mean Corpuscular HGB 31.5 pg (26.0-34.0); Mean Corpuscular HGB Conc 32.1 g/dL (31.5-36.5); Mean Corpuscular Volume 98 fL (80-100); Mean Platelet Volume 10.1 fL (9.1-12.4); NEUTROPHILS ABSOLUTE AUTO 10.45 K/mm3 (1.96-9.15); NEUTROPHILS PERCENT AUTO 86 % (41-73); NRBC ABSOLUTE 0.03 K/mm3 (0.00-0.02); NRBC Auto 0.2 /100 WBC (0.0-0.2); Platelet Count 285 K/mm3 (150-400); RDW Coefficient Variation 15.6 % (11.7-14.2); RDW Standard Deviation 55.7 fL (35.1-46.3); White Blood Cell Count 12.11 K/mm3 (4.00-11.30)
[2019-09-17 03:53] LABS: Albumin, Blood 2.6 g/dL (3.4-5.0); Anion Gap 4 mmol/L (6-16); Blood Urea Nitrogen 25 mg/dL (8-24); Bun/Creatinine Ratio 32.6 (12.0-20.0); CO2, Blood 34 mmol/L (21-32); Calcium, Blood 7.9 mg/dL (8.5-10.1); Chloride, Blood 109 mmol/L (98-108); Creatinine, Blood 0.77 mg/dL (0.60-1.20); Glomerular Filtration Rate >60 (60-); Glucose, Blood 164 mg/dL (70-99); Phosphorus, Blood 3.4 mg/dL (2.5-4.9); Potassium, Blood 3.4 mmol/L (3.5-5.5); Sodium, Blood 147 mmol/L (136-145)
--- NOTE | 2019-09-17 06:07 | NUR ---
PT TOLERATED VENT MOST OF NIGHT, WITH BOUTS OF COUGHING WITH MOVEMENT. HOWEVER, PT RECOVERED QUICKLY AND DID NOT REQUIRE MUCH FENTANYL. VENT SETTINGS NOW DOWN TO AC 16 RR/ 450 TV/ PEEP 10/ 55% FIO2. SCDs KEPT OFF FOR 3 HOURS TO DRAIN EDEMA FROM FEET, WHICH HAD BLOWN UP TO 3+. FEET NOW DOWN TO 1+, PREVIOUS. LASIX GTT TITRATED DOWN PT HAD IMPROVED URINE OUTPUT.
--- NOTE | 2019-09-17 08:00 | NUR ---
Recieved report from Azeb WINN. Patient left side with HOB at 30 degrees. He has 8.0 ET and is 25 cm at lips. His settings are AC 18, TV 450, FiO2 50% and PEEP 10.0 and sats low 90%'s. He has Powerglide OMAR dressing intact site WNL's infusing Lasix at 3mg/hr and D5 at 75ml/hr. He has 18ga IV RFa dressing intact and site WNL's and is infusing Propofol at 35 mcg/kg/min. He has OG in Place infusing Vital High Protein at 20ml/hr goal rate and water 30ml/Q4. Has SCD in place but have been off for about an hour r/t edema. He has frazier in place clear green urine minimum of 150ml/hr r/t lasix gtt draining to gravity. He has tranvenous pacer site RIJ with paced rhythm in the 60 with underlined A-Fib. Repositioned patient.
--- NOTE | 2019-09-17 10:00 | NUR ---
No significant changes with patient. VSS and continues with intermitent paced ryhthm. Lasix gtt remains at 3mg/h for urine output at minimum 150ml/hr No vent setting changes. NO changes in gtt or TF settings.
--- NOTE | 2019-09-17 14:00 | NUR ---
Patient has been repositioned Q2 Stopped propofol per Dr Dumont to see if patient follows commands and he does, and restarted Propofol at 35mcg/kg/min. VSS See EMR. No other changes in gtts, vent setting, or TF.
--- NOTE | 2019-09-17 15:13 | NUR ---
Dropped patients Peep to 5.o and he has been tolerating with sats 94-96% and 4-500 volumes.
--- NOTE | 2019-09-17 18:50 | NUR ---
Patient remains intubated and sedated. His vent setings are currently AC 18, TV 450, FiO2 60% and PEEP 5.0 with sats 88-93%. He remains mostly paced in the 60 with underlined A-Fib. BP 130-160 systolic. He awakens occassionaly and looks around and falls back to sleep. He remains on D5 at 75ml/hr, Propofol at 35 mcg/kg/min, and increased lasix gtt to 4mg/hr to keep urine 150ml/hr minimum.
--- NOTE | 2019-09-17 22:00 | NUR ---
ASSUMED PT CARE FROM TATUM PRESTON AT 1915 PT INTUBATED AND SEDATED. PROPOFOL AT 35MCG/KG/MIN. PT ABLE TO OPEN EYES UPON VERBAL STIMULI AND FOLLOW COMMANDS. VENT SETTINGS: AC 18, TV 450, PEEP 5, FIO2 60%. PT HAS TRANSVENOUS PACER WITH HR SET AT 60BPM, MV5, V10, MODE VVI. UNDERLYING AFIB RHYTHM. DRESSING TO RIGHT IJ IS CDI; MEASURING APPROXIMATELY 40CM TO INSERTION SITE. GOOD CAPTURE NOTED; HOWEVER, PT IS APPROXIMATELY 90% PACED D/T UNDERLYING RHYTHM. BLOOD PRESSURES HAVE BEEN STABLE WITH SBP'S 120'S. VITAL HIGH PROTEIN INFUSING AT 20MLS/HR. SCHAEFFER CATHETER PATENT AND DRAINING TO GRAVITY; CLEAR YELLOW/GREEN. LASIX GTT INFUSING AT 4MG/HR WITH A GOAL OF URINE OUTPUT >150CC/HR. NO FAMILY AT BEDSIDE AT TIME OF BEDSIDE REPORTING. WILL CONTINUE TO MONITOR PT'S STATUS AND UPDATE FAMILY/PHYSICIAN NEEDED ON AN ONGOING BASIS.
[2019-09-18 03:24] LABS: BASOPHILS ABSOLUTE AUTO 0.02 K/mm3 (0.00-0.23); BASOPHILS PERCENT AUTO 0 % (0-2); EOSINOPHILS ABSOLUTE AUTO 0.13 K/mm3 (0.00-0.68); EOSINOPHILS PERCENT AUTO 1 % (0-6); Hematocrit 34.1 % (37.0-53.0); Hemoglobin 10.7 g/dL (13.5-17.5); IMMATURE GRAN ABSOLUTE AUTO 0.19 K/mm3 (0.00-0.10); IMMATURE GRAN PERCENT AUTO 2 % (0-1); LYMPHOCYTES ABSOLUTE AUTO 1.21 K/mm3 (0.84-5.20); LYMPHOCYTES PERCENT AUTO 13 % (21-46); MONOCYTES PERCENT AUTO 11 % (4-13); Mean Corpuscular HGB 30.7 pg (26.0-34.0); Mean Corpuscular HGB Conc 31.4 g/dL (31.5-36.5); Mean Corpuscular Volume 98 fL (80-100); Mean Platelet Volume 10.2 fL (9.1-12.4); NEUTROPHILS ABSOLUTE AUTO 6.96 K/mm3 (1.96-9.15); NEUTROPHILS PERCENT AUTO 72 % (41-73); NRBC ABSOLUTE 0.03 K/mm3 (0.00-0.02); NRBC Auto 0.3 /100 WBC (0.0-0.2); Platelet Count 265 K/mm3 (150-400); RDW Coefficient Variation 15.3 % (11.7-14.2); RDW Standard Deviation 54.4 fL (35.1-46.3); Red Blood Cell Count 3.49 M/mm3 (4.30-5.90); White Blood Cell Count 9.61 K/mm3 (4.00-11.30)
[2019-09-18 03:42] LABS: Albumin, Blood 2.3 g/dL (3.4-5.0); Anion Gap 4 mmol/L (6-16); Blood Urea Nitrogen 19 mg/dL (8-24); Bun/Creatinine Ratio 28.8 (12.0-20.0); CO2, Blood 35 mmol/L (21-32); Calcium, Blood 7.5 mg/dL (8.5-10.1); Chloride, Blood 105 mmol/L (98-108); Creatinine, Blood 0.66 mg/dL (0.60-1.20); Glomerular Filtration Rate >60 (60-); Glucose, Blood 121 mg/dL (70-99); Phosphorus, Blood 3.2 mg/dL (2.5-4.9); Potassium, Blood 2.9 mmol/L (3.5-5.5); Sodium, Blood 144 mmol/L (136-145)
--- NOTE | 2019-09-18 06:43 | NUR ---
END OF SHIFT SUMMARY NO SIGNIFICANT CHANGES THIS SHIFT. PROPOFOL AT 40MCG/KG/MIN FOR SEDATIONS. VENT SETTINGS CHANGED TO PEEP OF 8 AND FIO2 70% WITH BIOX LOW TO MID 90'S. PT MEDICATED WITH FENTANYL PER ORDERS FOR PAIN. PT REMAINS ON LASIX GTT AT 3MG/HR WITH A URINE OUTPUT OF AT LEAST 150CC/HR. YELLOW/GREEN, CLEAR URINE NOTED. POTASSIUM REPLACEMENT THIS MORNING D/T POTASSIUM OF 2.9; PER ELECTROLYTE PROTOCOL. VITAL HIGH PROTEIN REMAINS AT GOAL OF 20CC/HR; NO RESIDUALS NOTED. WILL CONTINUE TO MONITOR UNTIL REPORT IS HANDED OFF TO ONCOMING RN.
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
--- NOTE | 2019-09-18 08:35 | NUR ---
DR CANCHOLA: PROVIDER AT BEDSIDE TO EVAL PT. STS NO CHANGE TO ORDERS OR PLANS UNTIL PT IS EXTUBATED & MORE STABLE.
--- NOTE | 2019-09-18 09:15 | NUR ---
DR LESTER: PROVIDER AT BEDSIDE TO EVAL PT. FIO2 TITRATED DOWN TO 45% BY PROVIDER, IF PT TOLERATES, MAY TITRATE DOWN PEEP ALSO. ANITA RT, AT BEDSIDE DURING THIS TIME ALSO. IF PT CONTINUES TO TOLERATE, MAY TRIAL SPONTANEOUS MODE DURING THE DAY. CXR REVIEWED & LASIX DRIP TO BE CONTINUED W/ SAME PARAMETERS. POTASSIUM LAB RECHECK ORDERED FOR 1600, PROVIDER WOULD LIKE TO BE CALLED W/ RESULTS. FREE WATER FLUSH THROUGH OGT INCREASED R/T HYPERNATREMIA. NO OTHER CHANGES AT THIS TIME. WILL CONTINUE TO MONITOR & UPDATE NEEDED.
--- NOTE | 2019-09-18 11:38 | NUR ---
SEDATION VACATION: SEDATION DECREASED AT 1100, PT NOW AWAKE W/ EYES OPEN. TURNS HEAD TO NAME BEING STATED BUT IS NOT FOCUSING OR TRACKING. SQUEEZES W/ R HAND ONCE, BUT IS NOT FOLLOWING COMMANDS ANY FURTHER. VENT SETTINGS CHANGED TO SPONTANEOUS W/ PS 5 & 45% FIO2, PT IS TOLERATING WELL BUT CONTINUES COUGHING AFTER BEING SUCTIONED THROUGH ETT. WILL ALLOW FOR PT TO REMAIN ON SPONTANEOUS MODE TOLERATED.
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
--- NOTE | 2019-09-18 15:30 | NUR ---
UPDATE TO NEIDA: NEIDA LR, PT's SISTER, HAS CALLED REQUESTING UPDATE AFTER SPEAKING W/ AL Obrien, PALLIATIVE CARE RN. SHE HAS BEEN INFORMED OF PT's CURRENT STATUS, OF TODAY. BASED ON WHAT NEIDA IS TELLING THIS RN & WHAT SHE TOLD AL, SHE HAS BEEN UNDER THE IMPRESSION THAT THE PT IS DOING WELL ALL TOGETHER & WOULD LIKELY HAVE NO DEFECITS ON RECOVERY. THIS RN HAS INFORMED HER THAT THERE IS NO DEFINITE WAY TO KNOW EXACTLY WHAT HIS PROGNOSIS IS, BUT THAT BASED ON HIS MULTIPLE CONDITIONS, RECOVERY WILL BE EXTENSIVE. SHE IS VERY EMOTIONAL AT THIS TIME & IS CRYING ON THE PHONE. SHE LIVES IN [place] & IS DEBATING ON FLYING HERE BUT STS "I COULD NEVER PULL THE PLUG ON MY BROTHER." EDUCATION COMPLETED & SHE IS AWARE THAT NO ONE IS ASKING HER TO MAKE THAT DECISION AT THIS TIME. SHE REMAINS EMOTIONAL BUT IS UNDERSTANDING OF THIS.
--- NOTE | 2019-09-18 16:57 | NUR ---
DR LESTER: NOTIFIED PROVIDER OF 3.4 POTASSIUM LEVEL AFTER REPLETION THIS AM, HE STS TO GIVE 40 MEQ MORE KCL & ORDERS HAVE BEEN PLACED.
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
--- NOTE | 2019-09-18 21:00 | NUR ---
ASSUMED PT CARE FROM TATUM TARANGO AT 1915 PT ON PROPOFOL 15MCG/KG/MIN. VENT SETTINGS: SPONTANEOUS WITH PRESSURE SUPPORT 5/8; FIO2 45%. PT ABLE TO OPEN EYES TO VERBAL STIMULI. UPWARD GAZE NOTED. NO PURPOSEFUL MOVEMENT OR ATTEMPTS TO TRACK WITH EYES. PT WOULD ATTEMPT TO TURN HEAD IN DIRECTION OF SOUND. TRANSVENOUS PACER REMAINS TO RIGHT IJ; DRESSING IS CDI AND PACER CABLES MEASURING APPROXIMATELY 40CM TO INSERTION SITE. CENTRAL LINE HOWEVER, IS NOT PATENT AND WILL NOT FLUSH OR DRAW. VITAL HIGH PROTEIN AT GOAL OF 20CC/HR WITH 200CC WATER FLUSHES EVERY 4 HOURS. LASIX CONTINUES AT 3MG/HR FOR A URINARY OUTPUT OF 150CC/HR OR GREATER. NO FAMILY AT BEDSIDE AT THIS TIME. BEDSIDE REPORT GIVEN.
[2019-09-19 03:59] LABS: PCO2 Arterial 49.3 mmHg (35-45); PO2 Arterial 67.9 mmHg (80-100); pH Blood Arterial 7.48 (7.35-7.45)
[2019-09-19 04:12] LABS: BASOPHILS ABSOLUTE AUTO 0.03 K/mm3 (0.00-0.23); BASOPHILS PERCENT AUTO 0 % (0-2); EOSINOPHILS ABSOLUTE AUTO 0.35 K/mm3 (0.00-0.68); EOSINOPHILS PERCENT AUTO 3 % (0-6); Hemoglobin 11.2 g/dL (13.5-17.5); IMMATURE GRAN ABSOLUTE AUTO 0.16 K/mm3 (0.00-0.10); IMMATURE GRAN PERCENT AUTO 2 % (0-1); LYMPHOCYTES ABSOLUTE AUTO 1.35 K/mm3 (0.84-5.20); LYMPHOCYTES PERCENT AUTO 12 % (21-46); MONOCYTES ABSOLUTE AUTO 1.18 K/mm3 (0.16-1.47); MONOCYTES PERCENT AUTO 11 % (4-13); Mean Corpuscular HGB 30.2 pg (26.0-34.0); Mean Corpuscular HGB Conc 31.1 g/dL (31.5-36.5); Mean Corpuscular Volume 97 fL (80-100); NEUTROPHILS ABSOLUTE AUTO 7.93 K/mm3 (1.96-9.15); NEUTROPHILS PERCENT AUTO 72 % (41-73); NRBC ABSOLUTE 0.03 K/mm3 (0.00-0.02); NRBC Auto 0.3 /100 WBC (0.0-0.2); Platelet Count 243 K/mm3 (150-400); RDW Coefficient Variation 15.2 % (11.7-14.2); RDW Standard Deviation 53.8 fL (35.1-46.3); Red Blood Cell Count 3.71 M/mm3 (4.30-5.90)
[2019-09-19 04:31] LABS: Alanine Aminotransfer (ALT/SGP 35 U/L (12-78); Albumin, Blood 2.3 g/dL (3.4-5.0); Albumin/Globulin Ratio 0.7 (0.8-1.8); Alk Phos 71 U/L (50-136); Anion Gap 3 mmol/L (6-16); Aspartate Aminotrans (AST/SGOT 21 U/L (12-37); Bilirubin, Total 1.4 mg/dL (0.1-1.0); Blood Urea Nitrogen 18 mg/dL (8-24); Bun/Creatinine Ratio 26.8 (12.0-20.0); CO2, Blood 35 mmol/L (21-32); Calcium, Blood 7.8 mg/dL (8.5-10.1); Chloride, Blood 106 mmol/L (98-108); Creatinine, Blood 0.67 mg/dL (0.60-1.20); Globulin, Blood 3.2 g/dL (2.2-4.0); Glomerular Filtration Rate >60 (60-); Glucose, Blood 116 mg/dL (70-99); Phosphorus, Blood 3.2 mg/dL (2.5-4.9); Potassium, Blood 3.5 mmol/L (3.5-5.5); Sodium, Blood 144 mmol/L (136-145); Total Protein, Blood 5.5 g/dL (6.4-8.2)
--- NOTE | 2019-09-19 06:30 | NUR ---
END OF SHIFT SUMMARY VENT SETTINGS AC 18, TV 450, PEEP 8, FIO2 45%. PROPOFOL AT 35MCG/KG/MIN. SEE EARLIER NOTE REGARDING SEDATION VACATION. LASIX GTT TITRATED TO EFFECT T/O SHIFT; CURRENTLY AT 4MG/HR TO KEEP URINE OUTPUT AT LEAST 150CC/HR. VITAL HIGH PROTEIN REMAINS INFUSING AT GOAL OF 20CC/HR. PT REMAINS WITHOUT A BM SINCE ADMIT; HYPOACTIVE TONES NOTED TO ALL QUADRANTS. ABDOMEN IS DISTENDED AND FIRM. TRANSVENOUS PACER TO RIGHT IJ; DRESSING CDI. CENTRAL LINE PORT DOES NOT FLUSH OR DRAW. HOWEVER, PACER CABLES REMAIN MARKED AT APPROXIMATELY 40CM TO INSERTION SITE. PACER SET TO 60BPM; MODE VVI, OUTPUT 10V WITH SENSITIVITY AT 5MV. PT REMAINS VERY EDEMATOUS; YONI ALDANA WITH SCD'S IN PLACE. WILL CONTINUE TO MONITOR UNTIL REPORT IS HANDED OFF TO ONCOMING RN.
--- NOTE | 2019-09-19 07:58 | NUR ---
ASSUMED CARE RECIEVED REPORT FROM TATUM ECHOLS. PT IS INTUBATED WITH 8.02 ETT, 26 @ LIP. VENT IS SET TO AC 18/450/8/45%. PT IS RIDING THE VENT WITH PROPOFOL AT 40MCG/KG/MIN. LASIX IS INFUSING AT 4MG/HR, ALONG WITH NS TKO. PT HAS TUBE FEEDING, VITAL HIGH PROTEIN, INFUSING THROUGH OG TUBE AT 20ML/HR, WITH Q4H 200ML FLUSHES. PT HAS YONI ANTOINE AND SCDs ON. PT IS SECURED TO BED WITH SWB RESTRAINTS. PT IS LEANED TOWARDS THE RIGHT. HE HAS A PATENT SCHAEFFER DRAINING GREENISH-YELLOW, CLEAR URINE. BED LOW AND LOCKED.
--- NOTE | 2019-09-19 10:37 | NUR ---
UPDATE INCREASED TUBE FEEDING PER PAIRER'S REQUEST. VITAL HIGH PROTEIN NOW INFUSING AT 30ML/HR, NO CHANGE TO Q4H FLUSHES.
--- NOTE | 2019-09-19 13:45 | NUR ---
UPDATE/SBT/SEDATION VACATION SEDATION VACATION & SBT & NEURO STATUS: PT HAS BEEN ON SPONTANEOUS SINCE ABOUT 1000. PROPOFOL WAS PUT ON STANDBY AT THE TIME. INITIALLY THE PT WASN'T ABLE TO FOLLOW COMMANDS, OR TRACK WITH HIS EYES, AND THERE WAS NO BABINSKI REFLEX - HIS PUPILS WERE SLUGGISH TO REACT WELL. ALL HE COULD DO WAS REACT TO SOUND, AND EVEN TURN HIS HEAD TO THE DIRECTION OF THE STUMULUS. NO REAL EVIDENCE HE COULD UNDERSTAND WHAT WAS BEING SAID, BUT WE KNEW HE COULD HEAR. AFTER ABOUT 30-45 MINS THE PT WAS ABLE TO FOLLOW COMMANDS (SQEEZED AND RELEASED MY FINGERS, SHOOK HIS HEAD "NO" AND NODDED "YES" ON COMMAND, BUT COULD NOT WIGGLE HIS TOES), AND WHILE HE STILL WAS NOT TRACKING WITH HIS EYES, BY HEARING US TALK HE COULD PINPOINT US DOWN AND LOOK AT US, MORE ACCURATELY. ASIDE FROM SOME EXCESS ORAL SECRETIONS HE DID GREAT ON THE SBT (SEE RT NOTE FOR SPECIFICS). THE PT WAS ABLE TO SHAKE HIS HEAD "NO" WHEN I ASKED HIM IF HE WAS IN PAIN, AND HE ALSO NODDED "YES" IF HE COULD HEAR ME. CURRENTLY THE PT REMAINS ON SPONTANEOUS MODE AT 10/5, FIO2 50% - TO KEEP SAT'S 90 OR ABOVE. DUE TO GAGGING AND OVERAL DISCOMFORT I TURNED THE PROPOFOL BACK ON, BUT AT A LOW DOSE - RIGHT NOW IT IS AT 15MCG/KG/MIN. HE IS AT A RASS OF -2, CPOT OF 1 (TENSE FACE). WHEN OFF SEDATION HE WILL OPEN HIS EYES TO VOICE OR PRESSURE, HAVN'T SEEN HIM OPEN HIS EYES SPONTANEOUSLY. HE REACTS TO PAIN ("TENSES HIS FACE MORE SO THAN HIS BASELINE). BUT DOESN'T LOCALIZE OR WITHDRAW HIS HAND WHEN I CAUSE PAIN TO HIS NAIL BED. HE ONLY MOVES HIS NECK, HEAD, AND HANDS (NOT ARMS) THAT I HAVE SEEN. UPDATE: PT HAS HAD GREAT URINE OUTPUT WITH THE LASIX GTTP, 865ML, WHICH HAS BEEN OVER 150ML/HR DURING MY SHIFT. LASIZ REMAINS AT 3MG/HR. THERE HAS BEEN A GOOD AMOUNT OF EXTOPY WITH PVCs, ALONG WITH INTRINSIC AND PACED BEATS. PT REMAINS IN AN UNDERLYING AFIB RHYTHM, RATE HAS BEEN HIGH 50's-70. BLOOD PRESSURES HAVE BEEN GREAT, NO ISSUES WITH HIGHS OR LOWS.
--- NOTE | 2019-09-19 18:33 | NUR ---
SHIFT SUMMARY SEE PREVIOUS NOTES FOR SBT AND SEDATION VACATION. PT REMAINS ON VENT SPONTANEOUS 04/19, FIO2 45%. CURRENT GTTPS: PROPOFOL 25MCG/KG/MIN, AND LASIX 2MG/HR. PT HAD A NEGATIVE FLUID BALANCE FOR TODAY'S SHIFT, TOTAL URINE OUTPUT WAS 2215ML WITH A TOTAL INTAKE OF 1631ML; NET BALANCE WAS -584ML. PT REMAINS LARGELY EDEMATOUS THROUGHOUT. NO BM TODAY, BUT LACTULOSE WILL BE STARTED TODAY, Q12H TILL HE HAS A BM. PT'S TV PACER REMAINS ON THE SAME SETTINGS: 60 BPM BACK UP RATE, VOLTAGE OF 10mV, AND SENSITIVITY 5mV. I TALKED TO THE SISTER TODAY WHO WILL BE MAKING THE DECISIONS WHILE HE REMAINS UNABLE TO SPEAK FOR HIMSELF, AND I GAVE HER AN UPDATE ON THE PT AND ALSO DISCUSSING WHAT PALLIATIVE CARE IS. SHE THOUGHT IT MEANT END OF LIFE CARE, OR HOSPICE CARE. I TOLD HER A LOT ABOUT IT, ALONG WITH WHAT ARE THE FACTS OF THE CURRENT SITUATION REGARDING THE PT'S CONDITION. SHE WILL CALL AGAIN IN THE MORNING, AND WILL TALK TO PALLIATIVE CARE TOMORROW. BED IS LOW AND LOCKED.
--- NOTE | 2019-09-19 19:21 | NUR ---
ASSUMED PT CARE FROM TATUM BROWN AT 1915 SEDATED WITH PROPOFOL AT 25MCG/KG/MIN. VENT SETTINGS: SPONTANEOUS WITH PRESSURE SUPPORT 10/5; FIO2 45%. RESP RATE IN THE 20'S; TV 300-350. LASIX GTT INFUSING AT 2MG/HR TO MAINTAIN A URINE OUTPUT OF 150CC OR GREATER. TRANSVENOUS PACER REMAINS TO RIGHT IJ; DRESSING CDI. MODE VVI, RATE 60BPM, OUTPUT 10V, SENSITIVITY 5MV. PACER CABLES ARE MARKED AT APPROXIMATELY 40CM FROM INSERTION SITE. CENTRAL LINE PORT DOES NOT FLUSH OR DRAW BLOOD. PT HAS POWERGLIDE TO LEFT UPPER ARM AND AN 18G TO RIGHT FOREARM. TEMP SCHAEFFER CATHETER IS PATENT AND DRAINING CLEAR, YELLOW/GREEN URINE TO GRAVITY. TEMP IS 100.[address]; WILL CONTINUE TO MONITOR. NO FAMILY AT BEDSIDE AT THIS TIME. BEDSIDE REPORT GIVEN.
[2019-09-20 04:02] LABS: BASOPHILS ABSOLUTE AUTO 0.01 K/mm3 (0.00-0.23); BASOPHILS PERCENT AUTO 0 % (0-2); EOSINOPHILS ABSOLUTE AUTO 0.39 K/mm3 (0.00-0.68); EOSINOPHILS PERCENT AUTO 4 % (0-6); Hematocrit 34.8 % (37.0-53.0); Hemoglobin 11.3 g/dL (13.5-17.5); IMMATURE GRAN ABSOLUTE AUTO 0.15 K/mm3 (0.00-0.10); IMMATURE GRAN PERCENT AUTO 1 % (0-1); LYMPHOCYTES ABSOLUTE AUTO 0.92 K/mm3 (0.84-5.20); LYMPHOCYTES PERCENT AUTO 8 % (21-46); MONOCYTES PERCENT AUTO 8 % (4-13); Mean Corpuscular HGB 31.2 pg (26.0-34.0); Mean Corpuscular HGB Conc 32.5 g/dL (31.5-36.5); Mean Corpuscular Volume 96 fL (80-100); Mean Platelet Volume 10.3 fL (9.1-12.4); NEUTROPHILS ABSOLUTE AUTO 8.62 K/mm3 (1.96-9.15); NEUTROPHILS PERCENT AUTO 78 % (41-73); NRBC ABSOLUTE 0.03 K/mm3 (0.00-0.02); NRBC Auto 0.3 /100 WBC (0.0-0.2); Platelet Count 242 K/mm3 (150-400); RDW Coefficient Variation 14.8 % (11.7-14.2); RDW Standard Deviation 52.1 fL (35.1-46.3); Red Blood Cell Count 3.62 M/mm3 (4.30-5.90); White Blood Cell Count 10.99 K/mm3 (4.00-11.30)
[2019-09-20 04:18] LABS: Anion Gap 3 mmol/L (6-16); Blood Urea Nitrogen 18 mg/dL (8-24); Bun/Creatinine Ratio 27.7 (12.0-20.0); CO2, Blood 33 mmol/L (21-32); Calcium, Blood 7.9 mg/dL (8.5-10.1); Chloride, Blood 105 mmol/L (98-108); Creatinine, Blood 0.65 mg/dL (0.60-1.20); Glomerular Filtration Rate >60 (60-); Glucose, Blood 134 mg/dL (70-99); Magnesium, Blood 2.1 mg/dL (1.6-2.4); Phosphorus, Blood 2.1 mg/dL (2.5-4.9); Potassium, Blood 3.4 mmol/L (3.5-5.5); Sodium, Blood 141 mmol/L (136-145)
[2019-09-20 04:48] LABS: PCO2 Arterial 47.1 mmHg (35-45); PO2 Arterial 75.8 mmHg (80-100); pH Blood Arterial 7.49 (7.35-7.45)
--- NOTE | 2019-09-20 05:08 | NUR ---
END OF SHIFT SUMMARY VENT SWITCHED BACK TO AC 18, TV 450, PEEP 5, AND FIO2 INCREASED TO 60% D/T AFTER REPOSITIONING PT TO RIGHT SIDE HE STARTED TO DECREASE IN HIS OXYGEN SATURATIONS TO MID 80'S AND TV WERE LESS THAN 400. PROPOFOL REMAINS AT 35MCG/KG/MIN. SETTINGS REMAIN THE SAME FOR TRANSVENOUS PACER; DRESSING CDI. PT RECEIVED ANOTHER POWERGLIDE TO RIGHT UPPER ARM D/T LEFT UPPER ARM POWERGLIDE NOT DRAWING AND LAB UNABLE TO DRAW A SAMPLE. PT REMAINS VERY EDEMATOUS; BUE'S ARE WEEPING SLIGHTLY. LASIX GTT INFUSING AT 4MG/HR; GREEN/YELLOW URINE DRAINING TO GRAVITY. WILL CONTINUE TO MONITOR FOR CHANGES UNTIL REPORT IS HANDED OFF TO ONCOMING RN.
--- NOTE | 2019-09-20 06:29 | NUR ---
SEDATION VACATION ATTEMPTED TO TURN PROPOFOL DOWN TO 10MCG/KG/MIN; HOWEVER, PT COULDN'T STOP COUGHING AROUND TUBE IN ORDER TO BE CALM ENOUGH TO FOLLOW COMMANDS. INCREASED PROPOFOL TO 25MCG/KG/MIN; HOWEVER, PT CONTINUED TO COUGH AROUND ETT. THEREFORE, INCREASED PROPOFOL TEMPORARILY TO 50MCG/KG/MIN IN ORDER TO SETTLE PT BACK DOWN. PT IS CURRENTLY BACK DOWN TO 25MCG/KG/MIN. PT CAN OPEN EYES TO VERBAL STIMULI, TURNS HEAD TO SOUND, AND WITHDRAWALS FROM NOXIOUS STIMULI; HOWEVER, PT NOT ABLE TO FOLLOW ANY SIMPLE COMMANDS.
--- NOTE | 2019-09-20 07:50 | NUR ---
ASSUMED CARE RECIEVED REPORT FROM TATUM ECHOLS. PT IS LYING IN BED INTUBATED WITH AN 8.0 ETT, 25 @ THE LIP. VENT SETTINGS ARE: AC18/450/5/50%. CURRENT GTTPS: LASIX 5MG/HR, PROPOFOL 25MCG/KG/MIN, ALONG WITH NS TKO FOR ZOSYN PB, AND POTASSIUM PHOSPHATE. HE HAS A PATENT SCHAEFFER DRAINING YELLOW/GREEN, CLEAR URINE. HE HAS A TRANSVENOUS PACER, PARKED AT THE 40CM [place] AT THE INSERTION SITE, THE VOLTAGE IS SET TO 10mV AND THE SENSITIVITY IS SET TO 5mV - THE BACKUP RATE IS SET TO 60BPM. HE HAS YONI STOCKINGS AND SCD'S ON BILATERAL CALVES. HE IS RESTRAINED WITH BILATERAL SWB. HE HAS VITAL HIGH PROTEIN TF INFUSING AT 30ML/HR, WITH Q4H 200ML FLUSHES. BED IS LOW AND LOCKED.
--- NOTE | 2019-09-20 09:30 | NUR ---
PALLIATIVE CARE VISIT AND CASE CONFERENCE: VISIT TO PT IN ICU WHILE RN AND RT WORKING WITH PT. UPDATE ON CURRENT STATUS OBTAINED FROM RN, RT AND EMR. PT INTUBATED AND SEDATED CURRENTLY. PER RN, PT NOT TOLERATING DECREASE OF PROPOFOL WITHOUT COUGHING/GAGGING & AGITATION. PT IS TOLERATING DECREASING VENT PRESSURES, WHICH ALLOWED A LONGER PERIOD OF SPONTANEOUS RESPIRATORY EFFORTS YESTERDAY. PT IS ABLE TO FOLLOW SOME COMMANDS PER RN BUT NOT TRACKING WITH EYES OR MAKING EYE CONTACT WITH STAFF WHEN MORE AWAKE. SISTER, NEIDA CONTINUES TO CALL FOR REPORTS BID AND TATUM BROWN SPOKE WITH HER YESTERDAY FOR AN UPDATE. T/C TO NEIDA AT 9 AM PREVIOUSLY PLANNED. NEIDA IS MUCH MORE CALM DURING THIS CONVERSATION AND VERBALIZING MORE UNDERSTANDING OF HER BROTHER'S PMH, POOR HEALTH THAT SHE HAD PREVIOUSLY BEEN UNAWARE OF. PT AND NEIDA HAVE NOT SEEN EACH OTHER IN OVER 10 YEARS. SPOKE WITH NEIDA FOR APPROX 30 MINUTES, ANSWERED QUESTIONS, REVIEWED RECENT DR NOTES AND EXPLAINED TERMINOLOGY AND CURRENT TX PLAN. NEIDA STATES SHE KNOWS SHE NEEDS TO COME BUT WAITING. SHE HAS BEEN RESEARCHING TRAVEL AND "TRYING TO GET MY STABLE AND TAKEN CARE OF". LONG AND DETAILED CONVERSATION WITH RE: MULTIPLE COMORBIDITIES AND CHALLENGES FOR PT TO SURVIVE/RECOVER FROM IN REGARD TO PULMONARY, CARDIAC STANDPOINT ESPECIALLY. NEIDA VERBALIZES UNDERSTANDING THAT HER BROTHER REMAINS CRITICALLY ILL. PLANNED WITH HER TO CALL IF ANY CHANGE IN NEXT 48 HOURS AND SHE WILL CONTINUE TO SPEAK WITH HIS NURSES EACH SHIFT. THERE IS A THREE HOUR TIME DIFFERENCE BETWEEN HERE AND NEIDA IN [place]. PALLIATIVE CARE TO CONTINUE TO FOLLOW FOR SUPPORT AND ADVANCED CARE PLANNING. PT'S RN UPDATED ON ABOVE AFTER MY CALL WITH .
--- NOTE | 2019-09-20 13:53 | NUR ---
UPDATE VENTILATOR SETTINGS CHANGED TO SPONTANEOUS, PROPOFOL WAS PUT ON STANDBY AT 1200. PT DID WELL (SEE RT NOTE FOR SPECIFICS). HOWEVER, WAS VERY UNCOMFORTABLE. DR LESTER PUT THE ORDER IN TO EXTUBATE, WHICH OCCURED AT 1305. PT WAS ON NC 10LPM VIA MOUTH (MOUTH BREATHING). HE MAINTAINED SATS, BUT HAD INCREASED WORK OF BREATHING AND WAS WAS "BELLY BREATHING" FAIRLY SEVERELY. HE WAS PLACED ON THE BIPAP AT 1318, AND HIS WORK OF BREATHING GOT CONSIDERABLY BETTER. THE OG TUBE WAS REMOVED WELL. PRIOR TO BIPAP HE WAS COUGHING FAIRLY WELL AND CLEARING SOME SECRETIONS. HE WAS ABLE TO NOD "YES" FOR ME ONCE, AND SQUEEZE AND LET GO OF MY HAND ON COMMAND, BUT NOTHING MORE THAN THAT AT THE MOMENT. HES NOT TALKING OR GIVING ME ANY OTHER SENCE HE IS UNDERSTANDING WHATS GOING ON. BED LOW AND LOCKED. CALL LIGHT WITHIN REACH.
--- NOTE | 2019-09-20 19:00 | NUR ---
ASSUMED CARE NOTE: ASSUMED CARE OF PT @ 1900, RECEVIED REPORT FROM KEVIN WINN. PT IS ALERT AND ORIENTED TO SELF AND FOLLOWING DIRECTIONS. PT ON 6L OF O2 VIA OXYMIZER WITH SPO2 @ 94%. WEAK COUGH NOTED, NOT ABLE TO CLEAR SECRETIONS EFFECTIVELY, SUCTION AT BEDSIDE. PT IS IN AFLUTTER WITH PVC'S HR BETWEEN 50-70 BMP. PT DENIES CP OR SOB AT THIS TIME. BOWEL TONES HEARD IN ALL FOUR QUADRANTS. SCHAEFFER PATNET AND DRAINING ARIEL COLORED URINE. LASIX RUNNING @ 4MG/HR. BED AT LOWEST LEVEL, CALL LIGHT WITHIN REACH.
--- NOTE | 2019-09-20 20:02 | NUR ---
SHIFT SUMMARY PT HAD A GREAT DAY. HE WAS EXTUBATED AND REQUIRED BIPAP FOR A FEW HOURS, BUT IS NOW CURRENTLY ON THE OXYMIZER 7LPM AND SAT'ING MID 90'S. HE IS TAKLING MORE AT THE END OF THE SHIFT, ANSWERING BASIC QUESTIONS, NODDING YES AND NO, ETC... HE STILL HAS TROUBLE ARTICULATING SENTENCES SO HE STILL HAS SOME TROUBLE COMMUNICATING. BUT HE IS APPROPRIATE. HIS VITALS ARE STABLE, ASIDE FROM SOME HIGH BLOOD PRESSURES, HYDRALAZINE 10MG IV PRN HAD LITTLE EFFECT. HE REMAINS IN A AFLUTTER RATE 56-70. DENIED PAIN. TEMPERATURE UP AND DOWN, FROM 98-99.9. OG TUBE WAS REMOVED, TF STOPPED AT 1300. HE CONTINUES WITH THE LASIX GTTP AT 4MG/HR. DIRUESING VERY WELL - SEE I/Os. SISTER HAS BEEN UPDATED, AND HAS BEEN COMMUNICATING WITH PALLIATIVE CARE. BED LOW AND LOCKED. CALL LIGHT WITHIN REACH.
--- NOTE | 2019-09-20 21:57 | NUR ---
BEDSIDE SWALLOW EVAL: PT FAILED SWALLOW EVAL, WILL REPORT TO REASSESS IN 24 HRS.
--- NOTE | 2019-09-21 00:43 | NUR ---
UPDATE: PT HAS BEEN C/O PAIN TO LEFT SHOULDER AND BACK. HAS BEEN MEDICATED WITH PRN PAIN MEDS NEEDED. CALLED REGARDING ELEVATED BP, NEW ORDERS GIVEN.
[2019-09-21 04:06] LABS: Anion Gap 5 mmol/L (6-16); Blood Urea Nitrogen 15 mg/dL (8-24); Bun/Creatinine Ratio 23.4 (12.0-20.0); CO2, Blood 29 mmol/L (21-32); Calcium, Blood 8.1 mg/dL (8.5-10.1); Chloride, Blood 109 mmol/L (98-108); Creatinine, Blood 0.64 mg/dL (0.60-1.20); Glomerular Filtration Rate >60 (60-); Glucose, Blood 101 mg/dL (70-99); Magnesium, Blood 2.3 mg/dL (1.6-2.4); Potassium, Blood 3.9 mmol/L (3.5-5.5); Sodium, Blood 143 mmol/L (136-145)
[2019-09-21 05:12] LABS: Anion Gap 6 mmol/L (6-16); Blood Urea Nitrogen 15 mg/dL (8-24); CO2, Blood 28 mmol/L (21-32); Calcium, Blood 8.5 mg/dL (8.5-10.1); Chloride, Blood 108 mmol/L (98-108); Creatinine, Blood 0.68 mg/dL (0.60-1.20); Glomerular Filtration Rate >60 (60-); Glucose, Blood 105 mg/dL (70-99); Magnesium, Blood 2.3 mg/dL (1.6-2.4); Phosphorus, Blood 1.8 mg/dL (2.5-4.9); Potassium, Blood 3.5 mmol/L (3.5-5.5); Sodium, Blood 142 mmol/L (136-145)
--- NOTE | 2019-09-21 05:23 | NUR ---
SHIFT SUMMARY: SEE PREVIOUS NOTES. PT REMAINS ALERT AND ORIENTED TO SELF AND IS FOLLOWING DIRECTIONS. HE IS UNSURE OF WHERE HE IS, AND CANNOT RECALL EVENTS. PT CONTINUES TO BE ON 6L OF O2 VIA, WITH SPO2 @ 94%. WITH ACTIVITY OXYGEN REQUIREMENTS INCREASE, O2 IS THEN SET TO 8L OF O2, TO SUPPLEMENT. PT HAS BEEN ASKING FOR WATER T/O SHIFT. PT WAS REMINDED THAT IT WAS NOT SAFE TO SWALLOW, AND THAT FURTHER EVALUATION WOULD BE NEEDED. PT UNDERSTOOD, ORAL CARE WAS PROVIDED QHRS. PT WAS C/O PAIN TO LEFT SHOULDER AND BACK, MEDS GIVEN PER EMAR. PT HAS REMAINED IN AFLUTTER WITH HR BETWEN 50-70. BM THIS SHIFT. SCHAEFFER DRAINING ARIEL URINE. LASIX @ 4MG/HR, GOOD URINE OUTPUT. PT'S SBP HAS REMAINED IN THE 150'S, PRN HYPERTENSIVE MEDS GIVEN PER EMAR. BED AT LOWEST LEVEL, CALL LIGHT WITHIN REACH
[2019-09-21 05:42] LABS: PCO2 Arterial 39.7 mmHg (35-45); PO2 Arterial 67.2 mmHg (80-100)
--- NOTE | 2019-09-21 08:00 | NUR ---
ASSUMED CARE PT IS LYING IN BED ON HIS RIGHT SIDE, ON 7L OXYMIZER, SATING LOW TO MID 90'S. HE IS TALKING, AND ORIENTED TO SELF, FAMILY BUT NOT LOCATION, SITUATION, SURROUNDINGS, OR TIME. HE THOUGHT HE WAS IN [place] AND DIDN'T KNOW HE WAS IN A HOSPITAL. HE ASLO DOESN'T REMEMBER WHAT HAPPENED TO HIM. BUT HE IS MAKING APPROPRIATE STATEMENTS. HE HAS SCD'S ORDERED, BUT THEY WERE OFF AT START OF SHIFT, PER NOC NURSE WANTING TO GIVE HIM A BREAK. HE HAS A LASIX GTTP INFUSING AT 4MG/HR, ALONG WITH NS TKO. BED IS LOW AND LOCKED. CALL LIGHT WITHIN REACH.
--- NOTE | 2019-09-21 14:03 | NUR ---
PLEASE NOTE: COMFORT CARE ORDERS ENTERED IN ERROR ON WRONG PT. CANCELLED. WILL WORK WITH ICU STAFF TO RESTORE DISCONINUED ORDERS IN ERROR ALSO.
--- NOTE | 2019-09-21 15:55 | NUR ---
UPDATE NEURO - INITIALLY THE PT WAS UNABLE TO IDENTIFY WHERE HE IS AND THOUGHT HE WAS IN [place]. HE DOESN'T REMEMBER THE ACCIDENT. BUT HE MAKES APPROPRIATE STATEMENTS, USUALLY ONLY RESPONSES TO MY QUESTIONS AND STATEMENTS. HE LAUGHS AT JOKES, AND HE MAKES FAIRLY SIMPLE OBSERVATIONS ABOUT A MOVIE HE WAS WATCHING. HE AGREES A LOT, BUT IM NOT SURE IF HE IS 100% UNDERSTANDING EVERYTHING BEING TOLD TO HIM. DR GONGORA TALKED TO HIM ABOUT A POTENTIAL ANGIO/PACER IMPLANT PROCEDURE TOMORROW, AND HE AGREED TO EVERYTHING, BUT I WILL COMMUNICATE WITH THE PT AND ASSESS HIS UNDERSTANDING OF THE SITUATION TO BE SURE. HE IS STARTING TO MOVE MORE, MAINLY IN HIS ARMS (GROSS MOVEMENT, LIMITED RANGE OF MOTION). BUT I AM NOT SEEING ANY MOVEMENT IN THE LEGS. HE KNEW WHO HIS SISTER WAS, AND WAS ABLE TO TALK TO HER ON THE PHONE. HE AGREED WITH EVERYTHING SHE SAID, AND SEEMS TO HAVE DIFFICULTY INITIATING TOPICS OF CONVERSATION. HE MORE SO AGREES BY SAYING "YEAH" OR ANSWERS SIMPLE QUESTIONS. HE RECOGNIZED HER VOICE THOUGH. BP HAS BEEN AN ISSUE TODAY, LABETALOL IS ONLY HELPING MINIMALLY. LISINOPRIL HAS BEEN ADDED.
--- NOTE | 2019-09-21 18:19 | NUR ---
SHIFT SUMMARY PT TOOK A STEP IN THE RIGHT DIRECTION TODAY. HE ALERT AND ORIENTED TO SELF, FAMILY, AND FOLLOWING DIRECTIONS. HE WAS REORIENTED TO WHERE HE WAS AND WHY. WE TALKED ABOUT HIS PROCEDURE SCHEDULED FOR THE MORNING AND HE IS AWARE AND CURRENTLY UNDERSTANDS WHY HE NEEDS IT, AND IS ON BOARD FOR THE ANGIO/PACEMAKER IMPLANTATION. HE IS ON 5L OXYMIZER, SATING MID 90'S. REMAINS IN AFLUTTER UNDERLYING, WITH 70-80% PACED BEATS, AROUND 57-65. PT CAME BY TODAY AND GOT HIM TO SIT UP (WITH LOTS OF HELP) AND HE WANTS HIM TO IMPROVE HIS ARM STRENGTH BEFORE GETTING TO THE CHAIR. NOT TO MENTION GETTING THE TRANSVENOUS PACER OUT BEFORE WE GET HIM ANYWHERE. PT IS DEMONSTRATING THAT HE HAS A STRONG COUGH, AND HE WAS TAUGHT ABOUT THE INCENTIVE SPIROMETER. HE NEEDS HELP AND PRACTICE WITH THE IS, VERY WEAK. HE IS NET NEGATIVE TODAY AGAIN, HAVING LOTS OF URINE OUTPUT (SEE I/Os). BED LOW AND LOCKED. CALL LIGHT WITHIN REACH.
--- NOTE | 2019-09-21 20:00 | NUR ---
ASSUMED CARE OF PT, REPORT RCV'D FROM TATUM BROWN. PT ALERT AND ORIENTED, FOLLOWING COMMANDS AND ATTEMPTING TO ASSIST WITH CARE. PT WEAK BUE/BLE BUT PER DAYSHIFT NURSE THIS IS IMPROVING. PT CURRENTLY ON 6L OXYMIZER TO MAINTAIN SATS>90%, PT WILL BE PLACED ON BIPAP @NOC PER PHYSICIAN REQUEST. TRANSVENOUS PACER IN RIGHT IJ. VVI, VOLTAGE 10 MV, SENSITIVITY 5 MV. PT HYPERTENSIVE WITH SBP 190'S-200, TREATED PER EMAR TO MAINTAIN SBP<160. PT HAD SMALL SOFT BROWN BOWEL INCONTINENT BM. SCHAEFFER PATENT AND DRAINING ARIEL URINE. LASIX GTT @4MG/HR TO MAINTAIN URINARY OUTPUT>150 ML/HR. PT'S LEFT KNEE SWOLLEN, ECCHYMOTIC AND WARM TO THE TOUCH. PER PREVIOUS CHARTING THIS IS UNCHANGED. PT DENIES NEW/WORSENING PAIN IN KNEE. PT PASSED AFTERNOON BEDSIDE SWALLOW EVAL. WHILE ADMINISTERING NIGHTTIME PO MEDS PT BEGAN TO COUGH AND WAS UNABLE TO CATCH HIS BREATH FOR SEVERAL MINUTES. REPEATED BEDSIDE SWALLOW EVAL-PT FAILED. PT PLACED ON NPO. PT TO HAVE ANGIO AND PERM PACER PLACEMENT IN AM. SEE FULL SHIFT ASSESSMENT.
[2019-09-22 03:53] LABS: BASOPHILS ABSOLUTE AUTO 0.04 K/mm3 (0.00-0.23); BASOPHILS PERCENT AUTO 0 % (0-2); EOSINOPHILS ABSOLUTE AUTO 0.56 K/mm3 (0.00-0.68); EOSINOPHILS PERCENT AUTO 5 % (0-6); Hemoglobin 11.4 g/dL (13.5-17.5); IMMATURE GRAN ABSOLUTE AUTO 0.09 K/mm3 (0.00-0.10); IMMATURE GRAN PERCENT AUTO 1 % (0-1); LYMPHOCYTES PERCENT AUTO 8 % (21-46); MONOCYTES ABSOLUTE AUTO 1.52 K/mm3 (0.16-1.47); MONOCYTES PERCENT AUTO 13 % (4-13); Mean Corpuscular HGB 30.5 pg (26.0-34.0); Mean Corpuscular HGB Conc 31.7 g/dL (31.5-36.5); Mean Corpuscular Volume 96 fL (80-100); Mean Platelet Volume 9.4 fL (9.1-12.4); NEUTROPHILS ABSOLUTE AUTO 8.83 K/mm3 (1.96-9.15); NEUTROPHILS PERCENT AUTO 74 % (41-73); NRBC ABSOLUTE 0.03 K/mm3 (0.00-0.02); NRBC Auto 0.3 /100 WBC (0.0-0.2); Platelet Count 246 K/mm3 (150-400); RDW Coefficient Variation 15.3 % (11.7-14.2); Red Blood Cell Count 3.74 M/mm3 (4.30-5.90); White Blood Cell Count 11.94 K/mm3 (4.00-11.30)
[2019-09-22 04:09] LABS: Anion Gap 4 mmol/L (6-16); Blood Urea Nitrogen 15 mg/dL (8-24); Bun/Creatinine Ratio 21.8 (12.0-20.0); CO2, Blood 30 mmol/L (21-32); Calcium, Blood 8.3 mg/dL (8.5-10.1); Chloride, Blood 107 mmol/L (98-108); Creatinine, Blood 0.69 mg/dL (0.60-1.20); Glomerular Filtration Rate >60 (60-); Glucose, Blood 102 mg/dL (70-99); Magnesium, Blood 2.3 mg/dL (1.6-2.4); Phosphorus, Blood 1.9 mg/dL (2.5-4.9); Potassium, Blood 3.2 mmol/L (3.5-5.5); Sodium, Blood 141 mmol/L (136-145)
--- NOTE | 2019-09-22 05:30 | NUR ---
NO ACUTE CHANGES OVERNIGHT. PT REMAINED ON BIPAP FOR MAJORITY OF SHIFT, PT TOLERATED BIPAP WELL. PT PLACED ON 7L OXYMIZER @0430. SATS>92%. HR 43-70. PT HYPERTENSIVE T/O SHIFT, HYDRALAZINE AND LABETALOL ADMINISTERED ORDERED. 1100 ML ARIEL URINARY OUTPUT. LASIX GTT REMAINS AT 4 MG/HR. PT'S SISTER CALLED THIS AM, UPDATED WITH PROGRESS OVERNIGHT AND PLAN FOR ANGIO AND PERMANENT PACER PLACEMENT THIS AM. WILL REPORT TO DAYSHIFT NURSE.
--- NOTE | 2019-09-22 07:31 | NUR ---
BEDSIDE REPORT TAKEN AT 0700. DR CANCHOLA AT BEDSIDE AT 0715. PT CONSENTED FOR ANGIOGRAM AND POSSIBLE PACEMAKER/DEFIB. PT ORIENTED TO SELF, YEAR, AND SITUATION. PT SLOW TO ANSWER AND DOESNT FOLLOW DIRECTIONS WELL. PT PROFOUNDLY WEAK. PT CHOKED ON PILL LAST NOCT; MAY REQUIRE SWALLOW EVAL TODAY. PT WILL NEED PT/OT. PT TO HYPERBARIC TECHNICIAN LAB AT 0730. DR CANCHOLA NOTIFIED THAT PT HAD RUNS OF VT LAST NIGHT. LASIX GTT AND KPHOS INFUSING. TEMP PACEMAKER TO R IJ INTACT; PT 100% PACED.
--- NOTE | 2019-09-22 10:40 | NUR ---
PT BACK FROM [facility]. CORINARIES CLEAR. ICD/PACER PLACED TO LEFT CHEST WALL. DRSG C/D/I. PT SLEEPING, AROUSES TO VOICE, DENIES COMPLAINTS. TR BAND TO R RADIAL ART; WILL START DEFLATING BALLOON. BIPAP PLACED FOR DROWSINESS 06/20, FIO2 40%. DR CANCHOLA CALLED AND GAVE ME AN UPDATE. LASIX DC'D IN HC PER DR CANCHOLA.
--- NOTE | 2019-09-22 10:59 | NUR ---
DR NOEL AT BEDSIDE. SMALL AMT OF CREPITUS NOTED AROUND PACEMAKER SITE. LASIX TO RESUME; ORDERS TO FINISH BAG THAT IS IN ROOM, THEN RE-EVALUATE. BIPAP SETTINGS CHANGED BY DR NOEL TO 02/17. SATS 94%. 100% PACED. PVC'S NOTED. BP STABLE. PT 96.1, WARM BLANKETS PLACED.
--- NOTE | 2019-09-22 11:49 | NUR ---
TR BAND/CIRC CHECKED Q 15MIN; WNL. AIR REMOVED FROM TR BAND FROM [address], NO OOZING. WRIST IMMOBILIZER ON.
--- NOTE | 2019-09-22 14:50 | NUR ---
PT GIVEN COMPLETE BEDBATH AND TRANSFERED TO CHAIR USING LIFT. LEFT ARM IN SLING. LEFT ICD DRSG C/D/I. R TR BAND REMOVED, OPSITE IN PLACE. R WRIST W/O SWELLING, BLEEDING, HEMATOMA. PT SLIGHTLY RESTLESS, STATES HE WANTS TO GO HOME. PT STATES HE CAN WALK HOME. PT CALLED TO WORK W PATIENT.
--- NOTE | 2019-09-22 15:14 | NUR ---
PT CONFUSED. STATES HE IS IN [place] AND THAT THE YEAR IS 1918. PHYSICAL THERAPY WORKING W PT NOW.
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
--- NOTE | 2019-09-22 20:00 | NUR ---
ASSUMPTION OF CARE: PT ALERT BUT SOMEWHAT CONFUSED. STATES HE WANTS TO LEAVE THE HOSPITAL. PT IS CURRENTLY PACED. L ARM IN SLING. DRESSING OVER PACEMAKER SITE IS DRY AND INTACT. SMALL AMT OF IODINE LEAKING THROUGH. TR BAND TO R WRIST WAS REMOVED AT 1200 TODAY. DRESSING IS C/D/I. WRIST IMMOBILIZER IN PLACE. PT IS PACED. SBP HAS BEEN 150-160S. HR IN THE 60S. SP02 >90% ON 4L NC. LUNGS ARE CLEAR AND DIM IN BASES. PT IS NPO UNTIL SPEECH EVAL CAN BE DONE. POWERGLIDE IN PLACE TO L/R UPPER ARMS. LASIX INFUSING AT 6MG. PLAN IS TO D/C LASIX ONCE THIS BAG IS EMPTY AND RE-EVAL NEED IN THE AM. SCHAEFFER IN PLACE DRAINING YELLOW URINE. BED IN LOW POSITION. CALL LIGHT IN REACH. WILL CONTINUE TO MONITOR
--- NOTE | 2019-09-22 22:58 | NUR ---
PT CONTINUES TO ASK FOR SHOES AND PANTS HE IS PLANNING ON LEAVING THE HOSPITAL. ALTHOUGH PT IS ABLE TO VERBALIZE THIS HE HAS MADE NO ACTUAL ATTEMPTS TO GET OUT OF BED AND IS EASILY REDIRECTED.
--- NOTE | 2019-09-23 03:33 | NUR ---
PT NEEDS CONSTANT REDIRECTING TO LEAVE BIPAP ON. WILL CONTINUE TO MONITOR
--- NOTE | 2019-09-23 03:47 | NUR ---
PT REMAINS AGITATED. BP ELEVATED 190-200 DESPITE A COUPLE DOSES OF LABETOLOL AND HYDRALAZINE. PT DENIES PAIN WHEN ASKED HOWEVER WILL VERBALIZE PAIN WITH REPOSITIONING. FENTANYL GIVEN PER SEP.
--- NOTE | 2019-09-23 04:13 | NUR ---
PT OFF BIPAP AND NC PLACED ON PT. RT NOTIFIED. WILL CONTINUE TO MONITOR
--- NOTE | 2019-09-23 05:42 | NUR ---
SUMMARY: NO ACUTE CHANGES T/O SHIFT. PT REMAINED AGITATED AND RESTLESS STATING HE WANTED TO GET OUT OF BED, LEAVE. BP ELEVATED MAJORTIY OF SHIFT DESPITE MULTIPEL DOSES OF HYDRALAZINE AND LABETOLOL. FENTANYL GIVEN AND PT RESPONDED WELL- LESS RESTLESSNESS AND SBP DOWN TO 130. PT ON BIPAP FOR MOST OF NOC, WASNT WELL TOLERATED SO PT WENT ON NC UNTIL HE BEGAN TO DESAT IN HIGH 80S. PT CURRENTLY ON BIPAP AND TOLERATING WELL. SPO2 >90%. DRESSING TO PACEMAKER SITE DRY AND INTACT. NO CHANGES. R ARM BOARD REMAINS IN PLACE. RADIAL ACCESS SITE C/D/I. PT HAS L/MYCHAL POWERGLIDES. TKO NS INFUSING. SINCE LASIX GTT HAS BEEN OFF PT HAS HAD SMALL AMOUNT OF URINE OUTPUT. WILL PASS REPORT ON TO ONCOMING RN.
--- NOTE | 2019-09-23 09:22 | NUR ---
pt laying in bed fighting the bipap, he is confused, but follows a few commands, pushing bipap with his tongue, am able to redirect to relax, will be going for a cxr so placed him on an oxymizer at 5 liters, lungs are clear in upper mendez, dim in bases, resp even and unlabored, no cough noted, hrr, tele in place, he is in a paced rhythm, with occ pvcs, trace edema noted to b/l le, ppp+2, cap refill <3sec, b/p high, he is currently npo waiting for speech to see him, iv site is power glide to r and l upper arms, sites are clear and patent, btx4, abd flat soft nontender, frazier in place draining clear yellow urine, skin has multple bruising and abrasions, see assessment, avni pichardo, call light in reach.
--- NOTE | 2019-09-23 13:00 | NUR ---
ASSUMED CARE: REPORT RECEIVED FROM TATUM JACQUES. PT ATTEMPTED TO GET OUT OF BED. BED ALARM OFF. REPOSITIONED AND BED ALARM REPLACED. CLONIDINE PATCH PLACED FOR HYPERTENSION. NO FURTHER NEEDS OR CONCERNS AT THIS TIME.
--- NOTE | 2019-09-23 13:11 | NUR ---
PT LAYING CROOKED IN BED, REPOSITIONED MULTIPLE TIMES, ACTUALLY GOT HIMSELF TO A SITTING POSITION, BED ALARM WAS ACTIVATED, GOT HIM BACK TO BED, CHANGED LINEN UNDER HIM, REPORT TO ONCOMING NURSE. CALL LIGHT IN REACH.
--- NOTE | 2019-09-23 16:29 | NUR ---
DISCUSSED PT'S SWALLOW EVAL RESULTS WITH DR MARISCAL. STATES HE WILL EVALUATE AND ORDER IV NUTRITION AND RECHECK. ENTERING ORDERS NOW.
--- NOTE | 2019-09-23 17:43 | NUR ---
DURING EVENING I AND O COUNT, PT'S URINE OUTPUT WAS ONLY 50. CALL TO DR MARISCAL WHO STATES TO DO BLADDER SCAN AND IF RESULT LOW ADMINISTER FLUIDS. RESULT 0 MULTIPLE TIMES. ORDERS FOR IV FLUIDS. WILL ADMINISTER WHEN AVAILABLE.
--- NOTE | 2019-09-23 18:41 | NUR ---
SHIFT SUMMARY: PT RECIEVING NS AT 125/HR DUE TO APPEARING DEHYDRATED DUE TO NO FLUID OR FOOD INTAKE. DIETARY CONSULT, WILL PROVIDE IV NURTITION WHEN DIETARY AVAILABLE. PT REMAINS CONFUSED, POST PACER SITE CLEAN/DRY WITH IODINE SHOWING THROUGH STERI STRIPS. NO FURTHER CHANGES OR CONCERNS AT THIS TIME.
--- NOTE | 2019-09-23 22:41 | NUR ---
ASSUMED CARE OF PT, REPORT RCV'D FROM TATUM PACHECO. PT ALERT, MOSTLY ORIENTED WITH PERIODS OF CONFUSION. PT FREQUENTLY FORGETFUL BUT EASILY REDIRECTABLE. BED ALARM ON. PT ON 4-5 L NC, BIPAP@NOC. PT DESATS WITH REPOSITIONING, SLOW TO RECOVER. LUNG SOUNDS CLEAR, PT TACHYPNEIC WITH SHALLOW BREATHS. SCHAEFFER PATENT AND DRAINING ARIEL URINE. SEE FULL SHIFT ASSESSMENT
[2019-09-24 03:33] LABS: BASOPHILS ABSOLUTE AUTO 0.04 K/mm3 (0.00-0.23); BASOPHILS PERCENT AUTO 0 % (0-2); EOSINOPHILS PERCENT AUTO 0 % (0-6); Hematocrit 35.4 % (37.0-53.0); Hemoglobin 11.2 g/dL (13.5-17.5); IMMATURE GRAN ABSOLUTE AUTO 0.19 K/mm3 (0.00-0.10); IMMATURE GRAN PERCENT AUTO 1 % (0-1); LYMPHOCYTES ABSOLUTE AUTO 0.59 K/mm3 (0.84-5.20); LYMPHOCYTES PERCENT AUTO 3 % (21-46); MONOCYTES ABSOLUTE AUTO 2.02 K/mm3 (0.16-1.47); MONOCYTES PERCENT AUTO 11 % (4-13); Mean Corpuscular HGB 30.5 pg (26.0-34.0); Mean Corpuscular HGB Conc 31.6 g/dL (31.5-36.5); Mean Corpuscular Volume 97 fL (80-100); Mean Platelet Volume 10.4 fL (9.1-12.4); NEUTROPHILS ABSOLUTE AUTO 14.96 K/mm3 (1.96-9.15); NEUTROPHILS PERCENT AUTO 84 % (41-73); Platelet Count 252 K/mm3 (150-400); RDW Coefficient Variation 15.7 % (11.7-14.2); RDW Standard Deviation 54.8 fL (35.1-46.3); Red Blood Cell Count 3.67 M/mm3 (4.30-5.90)
[2019-09-24 03:58] LABS: Alanine Aminotransfer (ALT/SGP 34 U/L (12-78); Albumin, Blood 3.2 g/dL (3.4-5.0); Albumin/Globulin Ratio 0.9 (0.8-1.8); Alk Phos 107 U/L (50-136); Anion Gap 7 mmol/L (6-16); Aspartate Aminotrans (AST/SGOT 44 U/L (12-37); Bilirubin, Total 2.7 mg/dL (0.1-1.0); Blood Urea Nitrogen 28 mg/dL (8-24); Bun/Creatinine Ratio 26.4 (12.0-20.0); CO2, Blood 26 mmol/L (21-32); Calcium, Blood 8.8 mg/dL (8.5-10.1); Chloride, Blood 112 mmol/L (98-108); Creatinine, Blood 1.06 mg/dL (0.60-1.20); Globulin, Blood 3.6 g/dL (2.2-4.0); Glomerular Filtration Rate >60 (60-); Glucose, Blood 125 mg/dL (70-99); Magnesium, Blood 2.4 mg/dL (1.6-2.4); Phosphorus, Blood 3.1 mg/dL (2.5-4.9); Potassium, Blood 3.2 mmol/L (3.5-5.5); Sodium, Blood 145 mmol/L (136-145); Total Protein, Blood 6.8 g/dL (6.4-8.2)
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
--- NOTE | 2019-09-24 18:42 | NUR ---
SHIFT SUMMARY PT IS ALERT, AND ORIENTED TO SELF, FAMILY AND FOLLOWING DIRECTIONS. HE IS CONFUSED, AGREEING WITH EVERYTHING BUT NOT COMPREHENDING FULLY. HE HALLUCINATED THINKING THERE WAS CIGGARETTES, AND A FRIDGE WITH BEER IN IT. HE SAID CONFUSING STATMENTS ASKING HOW LONG ONE OF THE TECH'S WAS IN THE FOR, AND SAYING HE WAS IN AN IRRIGATION DITCH. PEG TUBE PLACEMENT IS PUT ON HOLD, OR MAYBE NOT EVEN AN OPTION ANYMORE. IT WAS DECIDED TO PUT HIM ON A PUREE DIET, PER SPEECH THERAPIST, WITH DYSPHAGIA PRECAUTIONS. DR. MARISCAL WAS RESISTANT BUT AFTER TALKING WITH DR. JOSHUA ABOUT THE CONTRAINDICATIONS FOR PEG TUBE PLACEMENT WITH THIS PARTICULAR PT SEEMED TO CHANGE HIS MIND. HE WILL GET AT LEAST ONE BAG OF PPN THAT WILL RUN FOR 24 HOURS. IT WILL BE DECIDED AT THAT TIME TOMORROW IF IT WILL BE CONTINUED OR NOT. PT WAS ON BIPAP AT BEGINNING OF SHIFT, BUT TOOK IT OFF - HE DID FINE ON 2L NC. AND CURRENTLY IS ON ROOM AIR, DOING FINE ON SPO2. HR IS IN THE 70'S AND THERE IS MINIMAL PACING. HE HAS A VVI PACER WITH A BACK UP RATE AT 60. HE CANT RECALL INSTRUCTIONS OF HOW TO MANAGE WITH A PACER. NEIDA, THE SISTER, IS AWARE AND UPDATED UP TILL THIS POINT. BED LOW AND LOCKED. CALL LIGHT WITHIN REACH.
--- NOTE | 2019-09-24 21:06 | NUR ---
PPN RATE TO 106mL/HR PER ORDER.
--- NOTE | 2019-09-25 03:00 | NUR ---
INCREASED O2 REQUIREMENTS. PT WITH INCREASED EPISODES OF AGITATION. PT WITH CONITNUED CRACKLES T/O AND IS NOW ON 100% FiO2. BIPAP: 16/8, RATE 14, FiO2 100%. CHEST XRAY ORDERED THIS AM NOTED.
[2019-09-25 04:51] LABS: Anion Gap 5 mmol/L (6-16); Blood Urea Nitrogen 36 mg/dL (8-24); Bun/Creatinine Ratio 38.1 (12.0-20.0); CO2, Blood 27 mmol/L (21-32); Calcium, Blood 8.7 mg/dL (8.5-10.1); Chloride, Blood 114 mmol/L (98-108); Creatinine, Blood 0.95 mg/dL (0.60-1.20); Glomerular Filtration Rate >60 (60-); Glucose, Blood 148 mg/dL (70-99); Magnesium, Blood 2.7 mg/dL (1.6-2.4); Phosphorus, Blood 2.5 mg/dL (2.5-4.9); Potassium, Blood 2.9 mmol/L (3.5-5.5); Sodium, Blood 146 mmol/L (136-145); Triglycerides 91 mg/dL (30-160)
--- NOTE | 2019-09-25 07:50 | NUR ---
ASSUMED CARE RECIEVED REPORT FROM TATUM HELLER. PT LYING IN BED AWAKE ON 2L NC, SAT'ING LOW 90'S. PT HAS SCD'S ON BILATERAL CALVES. HE HAS PPN INFUSING AT 106ML/HR VIA POWERGLIDE. HE VOMITED SMALL AMOUNT OF BROWN LIQUID. HE DENIES NAUSEA. HE COMPLAINS OF ABDOMINAL PRESSURE. BUT NO PAIN. WILL INFORM DR. GALLO. BED LOW AND LOCKED. CALL LIGHT WITHIN REACH.
--- NOTE | 2019-09-25 07:50 | NUR ---
UPDATE/CLEO PT C/O OF ABDOMINAL PRESSURE. HYPOACTIVE BOWEL TONES. NO "NAUSEA" BUT HAVING MULTIPLE EPISODES OF VOMITING BROWN EMESIS. PT HAS A 2.9 K+ LEVEL. I INFORMED CLEO, SHE WILL COME ASSESS ABDOMEN. SHE ALSO MADE HIM NPO AND ORDERED KCL IV. PT IS INCONTINENT AND VOIDING IN ATTENDS, URINE APPEARS FOUL SMELLING, AND DARK. NOC NURSE REPORTS SEEING PUS IN URINE. WILL DO A UA, POSSIBLY VIA STRAIGHT CATH.
--- NOTE | 2019-09-25 09:20 | NUR ---
Brief visit made to pt in ICU. He is sleeping soundly and does not respond to voice or environmental solutions engineer in room cleaning. EMR reviewed. Case conference with nursing for updates on current status.
--- NOTE | 2019-09-25 10:45 | NUR ---
Pal Care Return visit when pt awake and enjoying looking out the window, after his RN positioned reclining chair facing window. Pt has audible secretions in airway. He is awake and conversant. Asks who I am. Reports he is not hurting when asked. He tells me he prefers to be called Foreign when asked. RT and RN in room caring for him. RN gave a full report on elevated white count, N/V x two including once in his bipap mask, foul urine noted and new orders. ST working with on safe PO intake. Pt expresses desire for pepsi. Spoke with Dr and CM later re: dc planning. CM in contact with sister, Lana, who states she is planning to come out and is in agreement with transfer to SNF for rehab when pt is medically ready. Lana [facility]. Will cont to follow with CM. thru [facility] with CM.
[2019-09-25 16:44] LABS: Source, Urine Clean Catch
[2019-09-25 16:50] LABS: Bilirubin, Urine Neg (Neg); Blood, Urine 2+ (Neg); Glucose Qualitative, Urine 2+ (Neg); Ketones, Urine Neg (Neg); Leukocyte Esterase, Urine 1+ (Neg); Nitrite, Urine Neg (Neg); Protein, Urine 3+ (Neg); Specific Gravity, Urine 1.015 (1.003-1.022); Urobilinogen, Urine NORM (Normal)
[2019-09-25 16:57] LABS: Appearance, Urine Clear (Clear); Color, Urine Yellow (P-Yellow)
[2019-09-25 17:00] LABS: Amorphous Light (0-Heavy); Bacteria Mod /hpf; Mucus Light (0-Heavy); Squamous Epithelial Cells Rare /hpf (Few)
--- NOTE | 2019-09-25 17:00 | NUR ---
PT TO PCU PT LEFT TO PCU AFTER A GREAT DAY IN ICU. HE GOT TO THE CHAIR WITH PT. HE GOT A SCHAEFFER WHICH DRAINED HIS DISTENDED BLADDER, AND RELIEVING PRESSURE. HE IS MAKING GREAT PROGRESS NEUROLOGICALLY (SEE PREVIOUS NOTE/ASSESSMENT). MAIN ISSUE CURRENTLY IS WEAKNESS, AND HIGH BLOOD PRESSURE. HE WAS NPO MOST OF THE DAY, BUT IS NOW BACK ON PUREE DIET - HOPEFULLY WITH PO BP MEDS, THIS WILL IMPROVE. PT IS NOW IN PCU 10. SISTER IS UPDATED.
--- NOTE | 2019-09-25 17:15 | NUR ---
ASSUMED PATIENT CARE. PATIENT TRANSFERED VIA LIFT TO BED, NO SIGNS OF ACUTE DISTRESS. WCTM.
--- NOTE | 2019-09-25 19:31 | NUR ---
PATIENT ARRIVED FROM ICU THIS EVENING. TPN CONTINUED AND PATIENT DIET ORDER FOR PUREED FOOD ARRIVED FOR DINNER. PATIENT TOLERATED WELL. NO ACUTE EVENTS THIS HALF OF SHIFT. PLAN IS FOR PATIENT TO WORK WITH PT TOMORROW, GOAL IS TO STAND DURING PT SESSION.
[2019-09-26 05:31] LABS: BASOPHILS ABSOLUTE AUTO 0.04 K/mm3 (0.00-0.23); BASOPHILS PERCENT AUTO 0 % (0-2); EOSINOPHILS PERCENT AUTO 3 % (0-6); Hematocrit 34.9 % (37.0-53.0); Hemoglobin 10.9 g/dL (13.5-17.5); IMMATURE GRAN ABSOLUTE AUTO 0.11 K/mm3 (0.00-0.10); IMMATURE GRAN PERCENT AUTO 1 % (0-1); LYMPHOCYTES ABSOLUTE AUTO 1.03 K/mm3 (0.84-5.20); LYMPHOCYTES PERCENT AUTO 7 % (21-46); MONOCYTES ABSOLUTE AUTO 1.52 K/mm3 (0.16-1.47); MONOCYTES PERCENT AUTO 10 % (4-13); Mean Corpuscular HGB 31.1 pg (26.0-34.0); Mean Corpuscular HGB Conc 31.2 g/dL (31.5-36.5); Mean Platelet Volume 10.5 fL (9.1-12.4); NEUTROPHILS ABSOLUTE AUTO 11.97 K/mm3 (1.96-9.15); NEUTROPHILS PERCENT AUTO 79 % (41-73); Platelet Count 257 K/mm3 (150-400); RDW Coefficient Variation 16.1 % (11.7-14.2); RDW Standard Deviation 58.8 fL (35.1-46.3); White Blood Cell Count 15.07 K/mm3 (4.00-11.30)
[2019-09-26 05:32] LABS: Mean Corpuscular Volume 100 fL (80-100)
[2019-09-26 05:51] LABS: Anion Gap 4 mmol/L (6-16); Blood Urea Nitrogen 28 mg/dL (8-24); Bun/Creatinine Ratio 41.8 (12.0-20.0); CO2, Blood 29 mmol/L (21-32); Calcium, Blood 8.7 mg/dL (8.5-10.1); Chloride, Blood 113 mmol/L (98-108); Creatinine, Blood 0.67 mg/dL (0.60-1.20); Glomerular Filtration Rate >60 (60-); Glucose, Blood 106 mg/dL (70-99); Magnesium, Blood 2.4 mg/dL (1.6-2.4); Phosphorus, Blood 2.8 mg/dL (2.5-4.9); Potassium, Blood 3.2 mmol/L (3.5-5.5); Sodium, Blood 146 mmol/L (136-145)
--- NOTE | 2019-09-26 06:42 | NUR ---
SHIFT SUMMARY PATIENT PLEASENT AND COOPERATIVE THROUGHOUT THE NIGHT. PATIENT APPEARED TO SLEEP WELL ON AND OFF THROUGHOUT THE NIGHT. PATIENT AWAKE AND WATCHING TV FOR THE LAST FEW HOURS OF THE SHIFT. PATIENT TURNED Q2H. PATIENT ON 4L O2 WHILE AWAKE AND ON THE BIPAP WHEN SLEEPING. PATIENT APPEARED ALERT AND ORIENTED BUT OCCATIONALLY FORGETFUL LAST NIGHT. PATIENT CURRENTLY RESTING IN BED WATCHING TV. PATIENT VERY PLEASENT AND CONVERSATIONAL THIS MORNING. PATIENT ABLE TO MAKE NEEDS KNOWN. WILL CONTINUE TO MONITOR PATIENT AND GIVE BEDSIDE REPORT TO ONCOMING RN.
--- NOTE | 2019-09-26 12:08 | NUR ---
PT AND OT WORKING WITH PATIENT.
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
--- NOTE | 2019-09-26 18:46 | NUR ---
SHIFT SUMMARY: PT A&O X 2, PLEASANT AND COOPERATIVE. DENIED PAIN. WAS UP IN CHAIR X 1, DECLINED TO GET OOB FOR DINNER. FED HIMSELF DINNER WITH SUPERVISION, DID VERY WELL. ABLE TO SWALLOW METOPROLOL SUCCINATE WHOLE IN APPLESAUCE THIS MORNING. POWERGLIDE IV DRESSING CHANGED. PPN D/C'D. POTASSIUM REPLACED. L UPPER CHEST PACEMAKER DRESSING CD&I.
--- NOTE | 2019-09-26 20:10 | NUR ---
INITIAL ASSESSMENT PATIENT RESTING QUIETLY IN BED, WATCHING TV. PATIENT ALERT AND ORIENTED TO SELF AND PLACE. PATIENT FORGETFUL AT TIMES. PATIENT WEAK BUT ABLE TO MOVE ALL EXTREMITIES. PATIENT DENIES PAIN. PATIENT HAS TEMP OF 99.0 DEGREES FAHRENHEIT. PATIENT SATTING 90% AND GREATER ON 4 L NC. PATIEN STATES HE WEARS CPAP AT HOME AT HS. PATIENT HAS OCCASIONAL, NONPRODUCTIVE COUGH. LUNGS CLEAR IN UPPER LOBES. RLL CRACKLES. LLL DIMINISHED. PATIENT IN A.FIB, OCCASIONALLY PACED, WITH PVCS. HR 70S TO 80S. SBP IN THE 170S. AICD TO LEFT UPPER CHEST. SCDS IN PLACE. ABDOMEN MODERATELY DISTENDED, SOFT, NONTENDER, WITH HYPERACTIVE BS. LAST BM ON THE . PRN MOM GIVEN. PUREE DIET. SCHAEFFER IN PLACE DRAINING DARK YELLOW COLORED URINE. OLD CENTRAL LINE SITE TO R NECK- TEGADERM IN PLACE- WNL. SCATTERED REDDENED AREAS, SCABS AND ABRASIONS NOTED. 2+ EDEMA NOTED TO BLES. NON-PITTING SCROTAL EDEMA NOTED. IV FLUSHED AND SALINE LOCKED. BED LOW, CALL LIGHT IN REACH, BED ALARM ON. WILL CONTINUE TO MONITOR PATIENT FREQUENTLY THROUGHOUT SHIFT.
--- NOTE | 2019-09-27 00:15 | NUR ---
PATIENT SLEEPING SOUNDLY UPON ENTERING ROOM. PATIENT CONTINUES TO HAVE TEMP OF 99.0 DEGREES FAHRENHEIT. PATIENT HAS NO COMPLAINTS OF PAIN. PATIENT SATTING 90% AND GREATER ON 3 L NC. PATIENT REMAINS IN A.FIB WITH PVCS, OCCASIONALLY PACED. HR IN THE 70S. SBP 160. SCHAEFFER DRAINING ADEQUATE AMOUNT OF DARK ORANGE COLORED URINE. PATIENT HAD LARGE, SOFT, BROWN BM. NO OTHER ACUTE CHANGES TO NOTE ON AT THIS TIME. WILL CONTINUE TO MONITOR.
--- NOTE | 2019-09-27 04:18 | NUR ---
PATIENT LYING IN BED AWAKE UPON ENTERING ROOM. PATIENT AFEBRILE. NO COMPLAINTS OF PAIN. PATIENT SATTING 90% AND GREATER ON 2 L NC. HR IN THE 70S. SBP IN THE 160S. PRN HYDRALAZINE GIVEN. NO OTHER ACUTE CHANGES TO NOTE ON AT THIS TIME. WILL CONTINUE TO MONITOR.
[2019-09-27 04:27] LABS: BASOPHILS ABSOLUTE AUTO 0.06 K/mm3 (0.00-0.23); BASOPHILS PERCENT AUTO 0 % (0-2); EOSINOPHILS ABSOLUTE AUTO 0.66 K/mm3 (0.00-0.68); EOSINOPHILS PERCENT AUTO 5 % (0-6); Hematocrit 35.1 % (37.0-53.0); Hemoglobin 11.1 g/dL (13.5-17.5); IMMATURE GRAN PERCENT AUTO 1 % (0-1); LYMPHOCYTES ABSOLUTE AUTO 1.15 K/mm3 (0.84-5.20); LYMPHOCYTES PERCENT AUTO 8 % (21-46); MONOCYTES ABSOLUTE AUTO 1.35 K/mm3 (0.16-1.47); MONOCYTES PERCENT AUTO 9 % (4-13); Mean Corpuscular HGB 30.5 pg (26.0-34.0); Mean Corpuscular HGB Conc 31.6 g/dL (31.5-36.5); Mean Platelet Volume 10.6 fL (9.1-12.4); NEUTROPHILS ABSOLUTE AUTO 11.05 K/mm3 (1.96-9.15); NEUTROPHILS PERCENT AUTO 77 % (41-73); Platelet Count 252 K/mm3 (150-400); RDW Coefficient Variation 15.6 % (11.7-14.2); RDW Standard Deviation 54.6 fL (35.1-46.3); Red Blood Cell Count 3.64 M/mm3 (4.30-5.90); White Blood Cell Count 14.37 K/mm3 (4.00-11.30)
[2019-09-27 04:30] LABS: Mean Corpuscular Volume 96 fL (80-100)
[2019-09-27 04:54] LABS: Albumin, Blood 2.6 g/dL (3.4-5.0); Anion Gap 4 mmol/L (6-16); Blood Urea Nitrogen 19 mg/dL (8-24); Bun/Creatinine Ratio 33.4 (12.0-20.0); CO2, Blood 31 mmol/L (21-32); Calcium, Blood 8.8 mg/dL (8.5-10.1); Chloride, Blood 108 mmol/L (98-108); Creatinine, Blood 0.57 mg/dL (0.60-1.20); Glomerular Filtration Rate >60 (60-); Glucose, Blood 102 mg/dL (70-99); Magnesium, Blood 1.9 mg/dL (1.6-2.4); Phosphorus, Blood 2.4 mg/dL (2.5-4.9); Potassium, Blood 3.4 mmol/L (3.5-5.5); Sodium, Blood 143 mmol/L (136-145)
--- NOTE | 2019-09-27 06:34 | NUR ---
SHIFT SUMMARY PATIENT REMAINED ALERT AND ORIENTED TO SELF AND PLACE. PATIENT FORGETFUL AT TIMES. PATIENT HAD NO COMPLAINTS OF PAIN THIS SHIFT. PATIENT HAD TMAX OF 99.0 DEGREES FAHRENHEIT. PATIENT REMAINED WEAK BUT ABLE TO MOVE ALL EXTREMITIES AND ASSIST WITH TURNS. PATIENT ON 4 L NC AT BEGINNING OF SHIFT AND DECREASED DOWN TO 2 L NC BY END OF SHIFT. PATIENT REMAINED IN A. FIB WITH PVCS, OCCASIONALLY PACED. HR RANGED FROM 70S TO 80S. SBP 140S TO 170S. PRN HYDRALAZINE GIVEN TWICE FOR SBPS OVER 160. SCDS IN PLACE. PATIENT GIVEN PRN MOM HAD NOT HAD BM IN SEVERAL DAYS. PATIENT HAD ONE LARGE, SOFT, BROWN BM THIS SHIFT. PATIENT HAD ADEQUATE AMOUNT OF DARK ORANGE COLORED URINE OUT FROM SCHAEFFER. NO CHANGE IN SKIN. PATIENT REPOSITIONED THROUGHOUT SHIFT. NO COMPLAINTS AT THIS TIME. BED LOW, CALL LIGHT IN REACH. REPORT WILL BE GIVEN TO ONCOMING DAY SHIFT RN SHORTLY.
--- NOTE | 2019-09-27 07:27 | NUR ---
ASSUMED CARE: PT AWAKE, IN BED, TALKING TO STAFF. NC 2L AT THIS TIME, SATTING MID 90S. DENIES NEEDS OR CONCERNS AT PRESENT.
--- NOTE | 2019-09-27 16:34 | NUR ---
REPORT GIVEN TO TATUM BRIGHT ON MEDICAL FLOOR. AWARE THAT PT HAS BEEN HYPERTENSIVE AND WAS RECENTLY GIVEN HYDRALAZINE. AWARE LIFT HAS BEEN NEEDED TO GET BACK TO BED. CALLED PT'S SISTER TO LET HER KNOW OF TRANSFER. TRANSFERRED VIA BED BY HOSPITAL STAFF.
--- NOTE | 2019-09-27 17:14 | NUR ---
SUMMARY PT TRANSFERRED UP FROM PCU, PT ORIENTED TO ROOM AND CALL SYSTEM, PT ALERT AND ORIENTED WITH SOME FORGETFULNESS, PLEASANT AND COOPERATIVE WITH CARE, SCHAEFFER REMAINS IN PLACE, PT WITH NO COMPLAINTS, WILL CONT TO MONITOR
--- NOTE | 2019-09-28 03:29 | NUR ---
SHIFT SUMMARY ASSUMED CARE OF PT AT 1900. PT IS A/O X4, DENIES N/T IN EXTREMITIES. HEART SOUNDS IRREGULAR, TELE MONITORING SHOWS AFIB OCCASIONALLY PACED @80, PT HAS 3+ PITTING EDEMA IN LOWER EXTREMITIES, DENIES CP AT THIS TIME. LUNG SOUNDS TIGHT WITH WHEEZES AND CRACKLES T/O, PT IS CURRENTLY ON 1L O2, DENIES SOB AT THIS TIME. PT C/O PAIN ON HIS BOTTOM, PT STATES ITS PROBABLY FROM LYING IN BED. PT SLEPT MOST OF THIS NIGHT EXCEPT FOR WHEN HE LOST HIS CALL LIGHT, PT ATTEMPTED TO GET OUT OF BED BUT GOT STUCK, PT ASSISTED BACK INTO BED AND WAS MEDICATED FOR PAIN AND SLEPT THE REST OF THE NIGHT. CALL LIGHT IN REACH, BED IN LOWEST POSTION, WILL COTINUE TO MONITOR UNTIL DAYSHIFT NURSE ARRIVES.
--- NOTE | 2019-09-28 10:16 | NUR ---
PLEASE NOTIFY SISTER SPOKE WITH PT'S SISTER ON THE PHONE, WITH THE PT'S PERMISSION, SHE LIVES ON THE [facility] AND WOULD LIKE TO BE NOTIFIED WHEN THE PT IS TRANSFERRED TO [facility] HER PHONE NUMBER IS [phone], HER NAME IS AUBREY
--- NOTE | 2019-09-28 17:12 | NUR ---
SUMMARY PT RESTING IN BED WATCHING TV, PT HAS BEEN PLEASANT AND COOPERATIVE WITH CARE, OCC FORGETS TO USE HIS CALL LIGHT, HAD HIS LEGS OVER THE SIDE OF THE BED ONCE TODAY, BED ALARM IS ON FOR SAFETY, PT WAS UP IN THE CHAIR TODAY, IS A 2P ASSIST WITH THE GAIT BELT AND THE WALKER, ESTELLA WELL, PT ABLE TO FEED HIMSELF AND TAKE HIS PILLS WHOLE IN APPLESAUCE, PLAN TO DC TO SNF SOON, PT AGREEABLE, VSS, NO ACUTE CHANGES, WILL CONT TO MONITOR
--- NOTE | 2019-09-29 03:52 | NUR ---
SHIFT SUMMARY PT PLEASANT AND COOPERATIVE. MILDLY FORGETFUL. SLEPT OFF AND ON. NO COMPLAINTS OF PAIN. REMAINED ON 1 L O2 NC WITH O2 SATS AT 92%. PT DID REQUEST TYLENOL BEFORE BED STATING THAT IT HELPS HIM SLEEP. SCHAEFFER CATHETER REMAINS PATENT AND DRAINING LIGHT YELLOW URINE. NO ACUTE CHANGES THIS SHIFT. VITAL SIGNS STABLE.
[2019-09-29 05:50] LABS: BASOPHILS ABSOLUTE AUTO 0.07 K/mm3 (0.00-0.23); BASOPHILS PERCENT AUTO 1 % (0-2); EOSINOPHILS ABSOLUTE AUTO 0.54 K/mm3 (0.00-0.68); EOSINOPHILS PERCENT AUTO 5 % (0-6); Hematocrit 37.1 % (37.0-53.0); Hemoglobin 11.9 g/dL (13.5-17.5); IMMATURE GRAN ABSOLUTE AUTO 0.09 K/mm3 (0.00-0.10); IMMATURE GRAN PERCENT AUTO 1 % (0-1); LYMPHOCYTES ABSOLUTE AUTO 1.29 K/mm3 (0.84-5.20); LYMPHOCYTES PERCENT AUTO 12 % (21-46); MONOCYTES PERCENT AUTO 11 % (4-13); Mean Corpuscular HGB 30.7 pg (26.0-34.0); Mean Corpuscular HGB Conc 32.1 g/dL (31.5-36.5); Mean Corpuscular Volume 96 fL (80-100); Mean Platelet Volume 10.6 fL (9.1-12.4); NEUTROPHILS PERCENT AUTO 71 % (41-73); Platelet Count 288 K/mm3 (150-400); RDW Coefficient Variation 15.5 % (11.7-14.2); RDW Standard Deviation 53.1 fL (35.1-46.3); Red Blood Cell Count 3.88 M/mm3 (4.30-5.90); White Blood Cell Count 10.79 K/mm3 (4.00-11.30)
[2019-09-29 06:06] LABS: Albumin, Blood 2.8 g/dL (3.4-5.0); Anion Gap 5 mmol/L (6-16); Blood Urea Nitrogen 11 mg/dL (8-24); CO2, Blood 29 mmol/L (21-32); Chloride, Blood 106 mmol/L (98-108); Creatinine, Blood 0.58 mg/dL (0.60-1.20); Glomerular Filtration Rate >60 (60-); Glucose, Blood 97 mg/dL (70-99); Phosphorus, Blood 2.7 mg/dL (2.5-4.9); Potassium, Blood 3.6 mmol/L (3.5-5.5); Sodium, Blood 140 mmol/L (136-145)
[2019-09-29] MEDS ORDERED: METO25 PO (15:32)
[2019-09-29] MEDS ORDERED: TAMS.4ER PO (15:32)
--- NOTE | 2019-09-29 18:21 | NUR ---
PT. EATING AT THIS TIME. PT. HAD A LARGE BM ON THE BSC. PT. IS A HEAVY 2-PERSON ASSIST. LLE WEAK AND PT HAS DIFFICULTY MOVING IT. RLE HAS 3+ PITTING EDEMA THE LLE JUST HAS A TRACE. POSSIBLE DISCHARGE TO SNF TOMORROW. NO OTHER NOTEABLE CHANGES THIS SHIFT.
--- NOTE | 2019-09-30 07:38 | NUR ---
SHIFT SUMMARY A/O, ABLE TO MAKE NEEDS KNOWN. COOPERATIVE WITH CARE. CALLS AND ANSWERS QUESTIONS APPROPRIATELY. NO C/O PAIN/DISCOMFORT. UP 1 ASSIST TO BSC; HOWEVER, TRANSFER BACK TO BED REQUIRED 2P. VSS/FEBRILE @ 99.7. NO ACUTE CHANGES NOTED OVERNIGHT. SCHAEFFER SECURED AND DRAINING TO GRAVITY. BED IN LOWEST POSITION. CALL LIGHT AND BELONGINGS WITHIN REACH. CONTINUED TO MONITOR. REPORT GIVEN TO ONCOMING RN.
--- NOTE | 2019-09-30 16:45 | NUR ---
PT. IV DC'D BY FINANCIAL WRITER ARIEL OLIVER. I CALLED [facility] AND GAVE REPORT TO ACCEPTING RN. PT. BEING DISCHARGED WITH SCHAEFFER CATHETER, OXYGEN 2L/NC. ORDER FOR BI-PAP FOR PATIENT AT [facility].
--- NOTE | 2019-09-30 17:10 | NUR ---
PT. DISCHARGED TO VIA [facility]
== END 2019-09-30 17:15 | disposition home or self-care (01) | DRG 242 ==
LOC: ER 16:10 → ICUE 17:52 → ERHOLD 17:52 → EDBEDREQ 17:57 → ICUE 18:59 → PCU 09-25 17:02 → MEDS 09-27 16:37
PROVIDERS: Emergency Medicine; Family Medicine; Internal Medicine; Internal Medicine Critical Care Medicine; Internal Medicine Pulmonary Disease; ADMIT Internal Medicine
PROC: 0BH17EZ Insertion of Endotracheal Airway into Trachea, Via Natural or Artificial Opening (ICD-10-PCS; principal; 2019-09-11)
PROC: 5A1955Z Respiratory Ventilation, Greater than 96 Consecutive Hours (ICD-10-PCS; 2019-09-11)
PROC: 0BJ08ZZ Inspection of Tracheobronchial Tree, Via Natural or Artificial Opening Endoscopic (ICD-10-PCS; 2019-09-11)
PROC: 0JH604Z Insertion of Pacemaker, Single Chamber into Chest Subcutaneous Tissue and Fascia, Open Approach (ICD-10-PCS; 2019-09-12)
PROC: 02HK3JZ Insertion of Pacemaker Lead into Right Ventricle, Percutaneous Approach (ICD-10-PCS; 2019-09-12)
PROC: 3E0132A Introduction of Anti-Infective Envelope into Subcutaneous Tissue, Percutaneous Approach (ICD-10-PCS; 2019-09-12)
DX: I49.01 Ventricular fibrillation (principal); J96.02 Acute respiratory failure with hypercapnia; G92 Toxic encephalopathy; J69.0 Pneumonitis due to inhalation of food and vomit; J96.01 Acute respiratory failure with hypoxia; J15.5 Pneumonia due to Escherichia coli; R40.20 Unspecified coma; S22.41XA Multiple fractures of ribs, right side, initial encounter for closed fracture; J44.1 Chronic obstructive pulmonary disease with (acute) exacerbation; S36.030A Superficial (capsular) laceration of spleen, initial encounter; G93.1 Anoxic brain damage, not elsewhere classified; K92.2 Gastrointestinal hemorrhage, unspecified; I46.8 Cardiac arrest due to other underlying condition; I49.5 Sick sinus syndrome; R33.9 Retention of urine, unspecified; E78.5 Hyperlipidemia, unspecified; V49.9XXA Car occupant (driver) (passenger) injured in unspecified traffic accident, initial encounter; Y93.89 Activity, other specified; Y92.488 Other paved roadways as the place of occurrence of the external cause; Y99.0 Civilian activity done for income or pay; E87.6 Hypokalemia; E11.9 Type 2 diabetes mellitus without complications; Z79.4 Long term (current) use of insulin; E66.01 Morbid (severe) obesity due to excess calories; Z68.38 Body mass index [BMI] 38.0-38.9, adult; Z79.01 Long term (current) use of anticoagulants; I48.20 Chronic atrial fibrillation, unspecified; F17.210 Nicotine dependence, cigarettes, uncomplicated; D50.0 Iron deficiency anemia secondary to blood loss (chronic)
CPT/HCPCS: 31500; 31720; 33210; 33249; 36415; 36430; 36600; 51702; 70450; 71045; 71046; 71260; 72125; 74176; 74177; 74230; 76604; 76937; 80048; 80053; 80069; 81001; 82330; 82550; 82803; 82947; 83605; 83615; 83735; 83880; 84100; 84132; 84155; 84443; 84478; 84484; 85014; 85018; 85025; 85027; 85610; 86900; 86901; 87040; 87070; 87077; 87086; 87186; 87205; 90686; 92526; 92610; 92611; 93005; 93010; 93306; 93454; 94002; 94003; 94640; 94660; 94760; 94762; 96374-59; 97110; 97112; 97116; 97161; 97166; 97530; 97535; 99152; 99153; 99291-25; 99292; C1722; C1751; C1769; C1781; C1894; C1895; C9113; G0390; J0330; J0360; J0461; J0690; J0696; J1644; J1940; J2250; J2405; J2543; J2704; J2930; J3010; J3430; J3475; J3480; J7030; J7040; J7050; J7060; J7070; P9053; Q9967

== ENCOUNTER → 2020-07-19 | Outpatient (CLI) | payer OTHER ==
[~2020-07-19] MED LIST changes: +ALBU90OI INH; +AMLO5 PO; +ATOR40TA PO; +FURO20 PO; +HYDR1TAB94 PO; +LISI20 PO; +METO25 PO; +ONDA4ODT SL; +PRAZ5 PO; +SPIRIVA RESPIMAT4 GM INH; +TAMS.4ER PO; +TIMO.5OPSO BOTHEYES; +Thera-M1 EACH PO; +WARF5 PO
[2020-07-20 13:29] LABS: Appearance, Urine Turbid (Clear); Bilirubin, Urine Neg (Neg); Blood, Urine Neg (Neg); Color, Urine Yellow (P-Yellow); Glucose Qualitative, Urine Neg (Neg); Ketones, Urine Neg (Neg); Leukocyte Esterase, Urine 2+ (Neg); Nitrite, Urine Neg (Neg); Protein, Urine 1+ (Neg); Urobilinogen, Urine 2+ (Normal)
[2020-07-20 13:42] LABS: Bacteria Rare /hpf; Calcium Oxalate Crystals Few /hpf; Red Blood Cells, Urine Not Seen /hpf (0-2); Squamous Epithelial Cells Few /hpf (Few)
== END ==
LOC: LAB 12:26 → LAB SHORT 12:26
PROVIDERS: Family Medicine
DX: R30.9 Painful micturition, unspecified (principal); R30.0 Dysuria
CPT/HCPCS: 81001; 87077; 87086; 87186

== ENCOUNTER 2020-08-12 08:08 | Emergency (ER) | payer OTHER ==
[~2020-08-12] VITALS: Ht 182.9 cm; Wt 106.6 kg
[~2020-08-12 08:08] MED LIST changes: -HYDR1TAB94 PO; -ONDA4ODT SL
[2020-08-12 08:39] LABS: BASOPHILS ABSOLUTE AUTO 0.04 K/mm3 (0.00-0.23); BASOPHILS PERCENT AUTO 0 % (0-2); EOSINOPHILS ABSOLUTE AUTO 0.01 K/mm3 (0.00-0.68); EOSINOPHILS PERCENT AUTO 0 % (0-6); Hematocrit 42.9 % (37.0-53.0); Hemoglobin 14.2 g/dL (13.5-17.5); IMMATURE GRAN ABSOLUTE AUTO 0.05 K/mm3 (0.00-0.10); IMMATURE GRAN PERCENT AUTO 0 % (0-1); LYMPHOCYTES ABSOLUTE AUTO 0.59 K/mm3 (0.84-5.20); LYMPHOCYTES PERCENT AUTO 5 % (21-46); MONOCYTES PERCENT AUTO 5 % (4-13); Mean Corpuscular HGB 33.5 pg (26.0-34.0); Mean Corpuscular HGB Conc 33.1 g/dL (31.5-36.5); Mean Corpuscular Volume 101 fL (80-100); Mean Platelet Volume 11.3 fL (9.1-12.4); NEUTROPHILS ABSOLUTE AUTO 11.63 K/mm3 (1.96-9.15); NEUTROPHILS PERCENT AUTO 89 % (41-73); Platelet Count 245 K/mm3 (150-400); RDW Coefficient Variation 14.7 % (11.7-14.2); RDW Standard Deviation 54.8 fL (35.1-46.3); Red Blood Cell Count 4.24 M/mm3 (4.30-5.90); White Blood Cell Count 13.02 K/mm3 (4.00-11.30)
[2020-08-12 09:20] LABS: Alanine Aminotransfer (ALT/SGP 21 U/L (12-78); Albumin, Blood 3.7 g/dL (3.4-5.0); Albumin/Globulin Ratio 1.2 (0.8-1.8); Alk Phos 93 U/L (50-136); Anion Gap 6 mmol/L (6-16); Aspartate Aminotrans (AST/SGOT 16 U/L (12-37); Bilirubin, Total 1.3 mg/dL (0.1-1.0); Blood Urea Nitrogen 8 mg/dL (8-24); CO2, Blood 27 mmol/L (21-32); Calcium, Blood 8.9 mg/dL (8.5-10.1); Chloride, Blood 109 mmol/L (98-108); Creatinine, Blood 0.53 mg/dL (0.60-1.20); Globulin, Blood 3.2 g/dL (2.2-4.0); Glomerular Filtration Rate >60 (60-); Glucose, Blood 166 mg/dL (70-99); Potassium, Blood 3.3 mmol/L (3.5-5.5); Sodium, Blood 142 mmol/L (136-145); Total Protein, Blood 6.9 g/dL (6.4-8.2)
[2020-08-12 10:28] LABS: Source, Urine Voided
[2020-08-12 10:41] LABS: Appearance, Urine Cloudy (Clear); Bilirubin, Urine Neg (Neg); Blood, Urine Neg (Neg); Color, Urine Yellow (P-Yellow); Glucose Qualitative, Urine 1+ (Neg); Ketones, Urine 3+ (Neg); Leukocyte Esterase, Urine 1+ (Neg); Nitrite, Urine Neg (Neg); Protein, Urine 1+ (Neg); Specific Gravity, Urine 1.015 (1.003-1.022); Urobilinogen, Urine 2+ (Normal)
[2020-08-12] MEDS ORDERED: HYDR1TAB94 PO (11:21)
[2020-08-12] MEDS ORDERED: ONDA4ODT SL (11:21)
[2020-08-12 11:29] LABS: Amorphous Heavy (0-Heavy); Bacteria Few /hpf; Red Blood Cells, Urine 0-2 /hpf (0-2); Squamous Epithelial Cells Rare /hpf (Few)
[2020-08-12 11:33] LABS: International Normalized Ratio 1.16; Prothrombin Time Results 12.3 Sec (9.7-11.5)
== END 2020-08-12 12:44 | disposition home or self-care (01) ==
LOC: ER 08:08
PROVIDERS: Emergency Medicine
DX: K80.20 Calculus of gallbladder without cholecystitis without obstruction (principal); I48.91 Unspecified atrial fibrillation; I10 Essential (primary) hypertension; E11.9 Type 2 diabetes mellitus without complications; E78.5 Hyperlipidemia, unspecified; J44.9 Chronic obstructive pulmonary disease, unspecified; F17.210 Nicotine dependence, cigarettes, uncomplicated; Z79.01 Long term (current) use of anticoagulants; Z79.899 Other long term (current) drug therapy; Z88.8 Allergy status to other drugs, medicaments and biological substances
CPT/HCPCS: 74176; 80053; 81001; 83690; 85025; 85610; 87086; 93005; 93010; 96374; 96375; 99284-25; J1170; J2405; J7030

== ENCOUNTER 2022-01-14 22:44 | Inpatient (IN) | payer OTHER ==
[~2022-01-14] VITALS: Ht 182.9 cm; Wt 103.1 kg
[~2022-01-14 22:44] MED LIST changes: +HYDR1TAB94 PO; +ONDA4ODT SL
[2022-01-14 23:34] LABS: BASOPHILS ABSOLUTE AUTO 0.07 K/mm3 (0.00-0.23); BASOPHILS PERCENT AUTO 1 % (0-2); EOSINOPHILS ABSOLUTE AUTO 0.15 K/mm3 (0.00-0.68); EOSINOPHILS PERCENT AUTO 2 % (0-6); Hematocrit 25.6 % (37.0-53.0); IMMATURE GRAN ABSOLUTE AUTO 0.03 K/mm3 (0.00-0.10); IMMATURE GRAN PERCENT AUTO 0 % (0-1); LYMPHOCYTES ABSOLUTE AUTO 0.93 K/mm3 (0.84-5.20); LYMPHOCYTES PERCENT AUTO 14 % (21-46); MONOCYTES ABSOLUTE AUTO 1.07 K/mm3 (0.16-1.47); MONOCYTES PERCENT AUTO 16 % (4-13); Mean Corpuscular HGB 21.5 pg (26.0-34.0); Mean Corpuscular HGB Conc 27.3 g/dL (31.5-36.5); Mean Corpuscular Volume 79 fL (80-100); Mean Platelet Volume 10.4 fL (9.1-12.4); NEUTROPHILS ABSOLUTE AUTO 4.46 K/mm3 (1.96-9.15); NEUTROPHILS PERCENT AUTO 67 % (41-73); NRBC ABSOLUTE 0.06 K/mm3 (0.00-0.02); NRBC Auto 0.9 /100 WBC (0.0-0.2); Platelet Count 240 K/mm3 (150-400); RDW Coefficient Variation 18.6 % (11.7-14.2); RDW Standard Deviation 52.2 fL (35.1-46.3); Red Blood Cell Count 3.26 M/mm3 (4.30-5.90); White Blood Cell Count 6.71 K/mm3 (4.00-11.30)
[2022-01-14 23:52] LABS: Albumin, Blood 3.2 g/dL (3.4-5.0); Bilirubin, Total 1.3 mg/dL (0.1-1.0); Bun/Creatinine Ratio 18.4 (12.0-20.0); Calcium, Blood 8.5 mg/dL (8.5-10.1); Creatinine, Blood 0.71 mg/dL (0.60-1.20); Globulin, Blood 3.3 g/dL (2.2-4.0); Potassium, Blood 4.1 mmol/L (3.5-5.5); Total Protein, Blood 6.5 g/dL (6.4-8.2)
[2022-01-15 03:40] LABS: International Normalized Ratio 1.84; Prothrombin Time Results 18.6 Sec (9.7-11.5)
--- NOTE | 2022-01-15 06:15 | NUR ---
SHIFT SUMMARY/ASSUMPTION OF CARE PT ARRIVED TO UNIT FROM ED DURING SHIFT. HR STABLE. BP STABLE. NO CP OR PRESSURE. PT ALERT AND ORIENTED X 4. UNSURE OF HOME MEDICATIONS. BLOOD TRANFUSION RUNNING AT 100 ML/HR. PT TOLERATING WELL AT THIS TIME. OXYGEN SATURATION MAINTAINED ABOVE 95% ON 2 L VIA NC. PT SOB AND HAVING PURSED LIP BREATHING. PT REPORTS TO BE "FEELING BETTER." BED ALARM IN PLACE. CONDOM CATH IN PLACE PER PT REQUEST. CALL LIGHT WITHIN REACH. WILL CONT TO MONITOR UNTIL REPORT GIVEN TO DAYSHIFT RN.
[2022-01-15 10:47] LABS: BASOPHILS ABSOLUTE AUTO 0.06 K/mm3 (0.00-0.23); BASOPHILS PERCENT AUTO 1 % (0-2); EOSINOPHILS ABSOLUTE AUTO 0.15 K/mm3 (0.00-0.68); EOSINOPHILS PERCENT AUTO 2 % (0-6); Hematocrit 28.8 % (37.0-53.0); Hemoglobin 7.9 g/dL (13.5-17.5); IMMATURE GRAN ABSOLUTE AUTO 0.02 K/mm3 (0.00-0.10); IMMATURE GRAN PERCENT AUTO 0 % (0-1); LYMPHOCYTES ABSOLUTE AUTO 0.91 K/mm3 (0.84-5.20); LYMPHOCYTES PERCENT AUTO 14 % (21-46); MONOCYTES ABSOLUTE AUTO 1.07 K/mm3 (0.16-1.47); MONOCYTES PERCENT AUTO 17 % (4-13); Mean Corpuscular HGB 22.3 pg (26.0-34.0); Mean Corpuscular HGB Conc 27.4 g/dL (31.5-36.5); Mean Corpuscular Volume 81 fL (80-100); Mean Platelet Volume 11.1 fL (9.1-12.4); NEUTROPHILS ABSOLUTE AUTO 4.19 K/mm3 (1.96-9.15); NEUTROPHILS PERCENT AUTO 66 % (41-73); NRBC ABSOLUTE 0.05 K/mm3 (0.00-0.02); NRBC Auto 0.8 /100 WBC (0.0-0.2); Platelet Count 231 K/mm3 (150-400); RDW Coefficient Variation 18.2 % (11.7-14.2); RDW Standard Deviation 52.9 fL (35.1-46.3); Red Blood Cell Count 3.54 M/mm3 (4.30-5.90)
[2022-01-15 11:06] LABS: Albumin, Blood 3.3 g/dL (3.4-5.0); Bilirubin, Total 1.6 mg/dL (0.1-1.0); Bun/Creatinine Ratio 17.5 (12.0-20.0); Calcium, Blood 8.5 mg/dL (8.5-10.1); Creatinine, Blood 0.68 mg/dL (0.60-1.20); Globulin, Blood 3.3 g/dL (2.2-4.0); Potassium, Blood 3.5 mmol/L (3.5-5.5); Total Protein, Blood 6.6 g/dL (6.4-8.2)
[2022-01-15 11:08] LABS: CPK Creatine Kinase 58 U/L (39-308)
[2022-01-15 11:09] LABS: Percent Saturation 8.5 % (20.0-50.0)
[2022-01-15 15:48] LABS: Hematocrit 27.4 % (37.0-53.0); Hemoglobin 7.8 g/dL (13.5-17.5)
--- NOTE | 2022-01-15 17:18 | NUR ---
PT SUMMARY: PT ALERT AND ORIENTED PLEASANT AND COOPERATIVE FOR THE SHIFT, VITALS HRR VPACED AFIB 60-80'S, BP SYSTOLIC 140-150'S, SATS ABOVE 90% ON 2L OF O2 P WITH SOB WITH EXERTION OR WHEN LAYING FLAT STARTED ON SCHEDULED DIURESIS HAD ATLEAT 3L URINE OUT FOR THE SHIFT, CONDOM CATH IN PLACE. PT ALSO HAD A NORMAL BOWEL MOVEMENT NO BLOOD NOTED IN THE STOOLS. PT RECEIVED 1UPRBC OF BLOOD HGB TREND WENT UP TO 7.8. DNIES ANY CHEST PAIN/PRESSURE, TROPONIN TRENDS HAS BEEN NEGATIVE. PT REPORTED SWELLING HAS GONE DOWN ON LUE SHOWS ON DUPLEX SCAN NON OCCLUSIVE THROMBOSIS ON LEFT BASILIC VEIN, PT NOT ON BLOOD THINNERS DUE TO POSS GI BLEED, SCD'S ON BOTH LEGS ON ALL SHIFT. REMAINS ON CLEAR LIQUID DIET, PT TOLERATING WELL. SBA TO BEDSIDE COMMODE. NO OTHER ISSUES REPORTED FOR THE SHOFT, ABLE TO MAKE NEEDS KNOWN, WILL REPORT TO ONCOMING SHIFT
[2022-01-15 21:35] LABS: Hematocrit 26.5 % (37.0-53.0); Hemoglobin 7.6 g/dL (13.5-17.5)
[2022-01-15 21:56] LABS: CPK Creatine Kinase 49 U/L (39-308)
[2022-01-16 03:43] LABS: Hematocrit 28.4 % (37.0-53.0); Hemoglobin 7.8 g/dL (13.5-17.5); Mean Corpuscular HGB 21.8 pg (26.0-34.0); Mean Corpuscular HGB Conc 27.5 g/dL (31.5-36.5); Mean Corpuscular Volume 79 fL (80-100); Mean Platelet Volume 10.8 fL (9.1-12.4); NRBC ABSOLUTE 0.05 K/mm3 (0.00-0.02); NRBC Auto 0.6 /100 WBC (0.0-0.2); Platelet Count 241 K/mm3 (150-400); RDW Coefficient Variation 18.5 % (11.7-14.2); Red Blood Cell Count 3.58 M/mm3 (4.30-5.90); White Blood Cell Count 7.84 K/mm3 (4.00-11.30)
[2022-01-16 03:58] LABS: Bun/Creatinine Ratio 14.9 (12.0-20.0); Calcium, Blood 8.4 mg/dL (8.5-10.1); Creatinine, Blood 0.74 mg/dL (0.60-1.20); Potassium, Blood 3.4 mmol/L (3.5-5.5)
--- NOTE | 2022-01-16 06:12 | NUR ---
SHIFT SUMMARY PT ALERT AND ORIENTED. THERE HAVE BEEN NO ACUTE CHANGES T/O SHIFT. VITALS HAVE BEEN STABLE AND PT REMAINS ON 2L NC WITH SATS ABOVE 92%. PT DENIES CHEST PAIN/PRESSURE. PT HAS CONDOM CATH AND DRAINING TO GRAVITY. CALL LIGHT IS WITHIN REACH.
[2022-01-16] MEDS ORDERED: XARELTO20 MG PO (07:51)
[2022-01-16 09:30] LABS: Hematocrit 27.4 % (37.0-53.0); Hemoglobin 7.6 g/dL (13.5-17.5)
--- NOTE | 2022-01-16 13:00 | NUR ---
pt brought to 363 via wheelchair from pcu, report from [place], pt able to stand and transfer to the bed, he's in good spirits, no complaints or needs, states he is feeling better, oriented to room layout and call system. call light in reach.
--- NOTE | 2022-01-16 13:10 | NUR ---
PT TRANSFERRED TO MEDICAL FLOOR REPORT GIVEN TO GEORGIE WINN, ALL BELONGINGS SENT WITH THE PT. NO ISSUES THIS MORNING DENIES ANY KIND OF PAIN OR DISCOMFORT VITALS HRR PACED 60'S BP SYSTOLIC 150-160'S, SATS ABOVE 90% ON 2L AFEBRILE. PT WAS ABLE TO TRANSFER AND USE THE COMMODE SBA PT HAD A LARGE BM DARK BROWN IN COLOR. CONDOM CATH IN PLACE HAD 2300MLS OUTPUT. DIET RESUMED TO REGULAR PT TOLERATED WELL. PT TRANSFERRED VIA WHEELCHAIR BY PCT
--- NOTE | 2022-01-16 18:41 | NUR ---
pt doing well, watching old movies, he reports it's burning with urination, will send u/a, no acute changes this shift. call light in reach.
[2022-01-16 18:55] LABS: Source, Urine Condom Cath
[2022-01-16 18:59] LABS: Appearance, Urine Clear (Clear); Bilirubin, Urine Neg (Neg); Blood, Urine Neg (Neg); Color, Urine Yellow (P-Yellow); Glucose Qualitative, Urine Neg (Neg); Ketones, Urine Neg (Neg); Leukocyte Esterase, Urine 1+ (Neg); Nitrite, Urine Neg (Neg); Protein, Urine Neg (Neg); Specific Gravity, Urine 1.015 (1.003-1.022); Urobilinogen, Urine NORM (Normal)
[2022-01-16 19:06] LABS: Bacteria Few /hpf; Red Blood Cells, Urine 0-2 /hpf (0-2); Squamous Epithelial Cells Rare /hpf (Few)
--- NOTE | 2022-01-17 03:12 | NUR ---
76 year old Male with CHF continues on diuretic via IV on day shift * has patent condom cath to enable rest promote effective diuresis. PT has MILLA home cpap not using here is on 2 l nc with pursed lip breathing noted orthopnea. Has AICD since 2019 for SSS ? Cardiac arrest recorded as problem around Aug. PT vauge about history. PT is [facility] PT gets his rx filled via [facility] mailorder. [place] PT is active smoker for 45 plus years down to 7 cigarettes.He denies symptomology with 17 beat run of Vtach. PT CO sleeplessness & requests sleep aide when DR informed of long asymptomatic Vtac. Melatonin 5 mg po ordered . Culture for urine as indicated for UA done yesterday. Add magnesium to AM labs due to vtach & freq PVC's .
[2022-01-17 04:56] LABS: Hematocrit 27.5 % (37.0-53.0); Hemoglobin 7.7 g/dL (13.5-17.5); Mean Corpuscular Volume 79 fL (80-100); Mean Platelet Volume 10.7 fL (9.1-12.4); NRBC ABSOLUTE 0.03 K/mm3 (0.00-0.02); NRBC Auto 0.4 /100 WBC (0.0-0.2); Platelet Count 238 K/mm3 (150-400); RDW Coefficient Variation 18.7 % (11.7-14.2); RDW Standard Deviation 52.8 fL (35.1-46.3); White Blood Cell Count 7.76 K/mm3 (4.00-11.30)
[2022-01-17 05:11] LABS: Bun/Creatinine Ratio 18.6 (12.0-20.0); Calcium, Blood 8.6 mg/dL (8.5-10.1); Creatinine, Blood 0.7 mg/dL (0.60-1.20); Magnesium, Blood 1.7 mg/dL (1.6-2.4); Potassium, Blood 3.4 mmol/L (3.5-5.5)
--- NOTE | 2022-01-17 18:21 | NUR ---
PATIENT IS ALERT AND ORIENTED AND COOPERATIVE WITH CARE. PLAN IS TO BE NPO AT MIDNIGHT FOR A PROCEDURE FIRST THING TOMORROW MORNING. SBA TO THE BSC. USES THE URINAL. NO TELE EVENTS TODAY. ON 2L O2 VIA NC. WILL CONTINUE TO MONITOR
--- NOTE | 2022-01-18 06:28 | NUR ---
pt HAVING SECOND ENEMA FOR PREP FOR FLEX SIGMOIDSCOPY ENDO FOR GI BLEED. He continues on tele monitor for hx of cardiac arrest afib vtach & AICD present. MILLA on 3 l NC to help with MILLA. Mild forgetful. [facility]. Enemas produce dark brown formed BM.m
--- NOTE | 2022-01-18 06:43 | NUR ---
01/18/22 0643 Yani Ferreira History, Chart, Medications and Allergies reviewed before start of procedure.
--- NOTE | 2022-01-18 06:50 | NUR ---
History, Chart, Medications and Allergies reviewed before start of procedure.Patient confirms NPO status and agrees with scheduled surgery.
--- NOTE | 2022-01-18 06:52 | NUR ---
LUNGS W/EXPIRATORY WHEEZES AND DIFFUSE RHONCHI PER DR. CHU ASSESSMENTS, DUONEB GIVEN
--- NOTE | 2022-01-18 07:47 | NUR ---
ASSUMED CARE AT 0715. REPORT RECEIVED FROM EXECUTIVE TALENT ACQUISITION CONSULTANT. PATIENT IS OFF UNIT FOR ENDOSCOPY. CHART REVIEWED. WILL CONT TO MONITOR.
--- NOTE | 2022-01-18 08:15 | NUR ---
PATIENT RETURNED FROM ENDOSCOPY AT 0800. SELF TRANSFERED FROM [facility] TO BED. PATIENT IS ALERT AND ORITENTED. ON 3L O2. WILL CONT TO MONITOR.
[2022-01-18 08:45] LABS: Hematocrit 29.7 % (37.0-53.0)
--- NOTE | 2022-01-18 17:53 | NUR ---
SHIFT SUMMARY NO ACUTE CHANGES THIS SHIFT. PATIENT IS ALERT AND ORIENTED, ABLE TO MAKE HIS NEEDS KNOWN. ANTICIPATE PATIENT TO DISCHARGE HOME TOMORROW. HE WILL NEED HOME O2 EVAL ATTEMPTS TO WEAN OFF SUPPLEMENTAL O2 HAVE NOT BEEN SUCCESSFUL AT THIS TIME. HE HAS CPAP SET UP AT BEDSIDE, CONT BIOX IN PLACE. BED LOW AND LOCKED, CALL LIGHT WITHIN REACH. WILL CONT TO MONITOR UNTIL REPORT GIVEN TO SHIPMASTER.
[2022-01-19 08:26] LABS: Hematocrit 29.8 % (37.0-53.0); Hemoglobin 8.6 g/dL (13.5-17.5)
[2022-01-19 08:52] LABS: Bun/Creatinine Ratio 26.5 (12.0-20.0); Calcium, Blood 9.7 mg/dL (8.5-10.1); Creatinine, Blood 0.64 mg/dL (0.60-1.20); Potassium, Blood 4.5 mmol/L (3.5-5.5)
[2022-01-19] MEDS ORDERED: FURO40 PO (13:45)
[2022-01-19] MEDS ORDERED: FERSU300 PO (13:45)
[2022-01-19] MEDS ORDERED: AIRDUO DIGIHAL1 EAC2 INH (13:46)
[2022-01-19] MEDS ORDERED: PANT20 PO (13:47)
[2022-01-19] MEDS ORDERED: PRED20 PO (13:47)
--- NOTE | 2022-01-19 14:50 | NUR ---
DISCHARGE DISCHARGE INSTRUCTIONS, MEDICATION LIST AND PCP FOLLOW UP REVIEWED WITH PT. QUESTIONS/CONCERNS ANSWERED. PT VERBALLY INDICATED UNDERSTANDING OF ALL INSTRUCTIONS RECEIVED. PT ESCORTED OUT VIA W/C BY LILI
== END 2022-01-19 15:00 | disposition home health service (06) | DRG 919 ==
LOC: ER 22:44 → MEDS 01-15 03:54 → ER 01-15 03:54 → PCU 01-15 03:54 → MEDS 01-16 13:11
PROVIDERS: Emergency Medicine; Internal Medicine; Student in an Organized Health Care Education/Training Program; ADMIT Internal Medicine
PROC: 30233N1 Transfusion of Nonautologous Red Blood Cells into Peripheral Vein, Percutaneous Approach (ICD-10-PCS; principal; 2022-01-18 07:15)
PROC: 0DB68ZX Excision of Stomach, Via Natural or Artificial Opening Endoscopic, Diagnostic (ICD-10-PCS; 2022-01-18 07:15)
DX: K91.840 Postprocedural hemorrhage of a digestive system organ or structure following a digestive system procedure (principal); I50.23 Acute on chronic systolic (congestive) heart failure; J96.01 Acute respiratory failure with hypoxia; K92.1 Melena; J91.8 Pleural effusion in other conditions classified elsewhere; J44.1 Chronic obstructive pulmonary disease with (acute) exacerbation; I82.612 Acute embolism and thrombosis of superficial veins of left upper extremity; D62 Acute posthemorrhagic anemia; G47.33 Obstructive sleep apnea (adult) (pediatric); I48.91 Unspecified atrial fibrillation; I11.0 Hypertensive heart disease with heart failure; D50.9 Iron deficiency anemia, unspecified; E78.5 Hyperlipidemia, unspecified; E11.9 Type 2 diabetes mellitus without complications; M54.50 Low back pain, unspecified; G89.29 Other chronic pain; M19.90 Unspecified osteoarthritis, unspecified site; F17.210 Nicotine dependence, cigarettes, uncomplicated; Z71.6 Tobacco abuse counseling; Z99.81 Dependence on supplemental oxygen; Z95.810 Presence of automatic (implantable) cardiac defibrillator; Z90.49 Acquired absence of other specified parts of digestive tract; Z98.890 Other specified postprocedural states; Z88.8 Allergy status to other drugs, medicaments and biological substances; Z79.899 Other long term (current) drug therapy; Y83.8 Other surgical procedures as the cause of abnormal reaction of the patient, or of later complication, without mention of misadventure at the time of the procedure
CPT/HCPCS: 36415; 36430; 71045; 80048; 80053; 81001; 82272; 82550; 82728; 83540; 83550; 83735; 83880; 84484; 85014; 85018; 85025; 85027; 85610; 85730; 86850; 86900; 86901; 86923; 87077; 87086; 87186; 88305; 88342; 93005; 93010; 93971; 94640; 94660; 94664; 94760; 94762; 96374; 96375; 97110; 97116; 97161; 97530; 99285-25; A9270; C9113; J1940; J2704; J2916; J2930; J7120; P9016

== ENCOUNTER 2022-04-21 16:40 | Inpatient (IN) | payer OTHER ==
[~2022-04-21] VITALS: Ht 182.9 cm; Wt 109.5 kg
[~2022-04-21 16:40] MED LIST changes: +AIRDUO DIGIHAL1 EAC2 INH; +FERSU300 PO; +FURO40 PO; +PANT20 PO; +PRED20 PO; +SPIRIVA RESPIMAT4 G3 INH; -SPIRIVA RESPIMAT4 GM INH; +XARELTO20 MG PO
[2022-04-21 17:16] LABS: BASOPHILS ABSOLUTE AUTO 0.06 K/mm3 (0.00-0.23); BASOPHILS PERCENT AUTO 1 % (0-2); EOSINOPHILS ABSOLUTE AUTO 0.05 K/mm3 (0.00-0.68); EOSINOPHILS PERCENT AUTO 1 % (0-6); Hematocrit 26.6 % (37.0-53.0); Hemoglobin 7.4 g/dL (13.5-17.5); IMMATURE GRAN ABSOLUTE AUTO 0.01 K/mm3 (0.00-0.10); IMMATURE GRAN PERCENT AUTO 0 % (0-1); LYMPHOCYTES ABSOLUTE AUTO 0.95 K/mm3 (0.84-5.20); LYMPHOCYTES PERCENT AUTO 15 % (21-46); MONOCYTES ABSOLUTE AUTO 1.01 K/mm3 (0.16-1.47); MONOCYTES PERCENT AUTO 16 % (4-13); Mean Corpuscular HGB 22.5 pg (26.0-34.0); Mean Corpuscular HGB Conc 27.8 g/dL (31.5-36.5); Mean Corpuscular Volume 81 fL (80-100); Mean Platelet Volume 10.3 fL (9.1-12.4); NEUTROPHILS ABSOLUTE AUTO 4.08 K/mm3 (1.96-9.15); NEUTROPHILS PERCENT AUTO 66 % (41-73); NRBC ABSOLUTE 0.05 K/mm3 (0.00-0.02); NRBC Auto 0.8 /100 WBC (0.0-0.2); Platelet Count 242 K/mm3 (150-400); RDW Coefficient Variation 21.1 % (11.7-14.2); RDW Standard Deviation 61.5 fL (35.1-46.3); Red Blood Cell Count 3.29 M/mm3 (4.30-5.90); White Blood Cell Count 6.16 K/mm3 (4.00-11.30)
[2022-04-21 17:39] LABS: Albumin, Blood 3.7 g/dL (3.4-5.0); Albumin/Globulin Ratio 1.4 (0.8-1.8); Bilirubin, Total 1.7 mg/dL (0.1-1.0); Bun/Creatinine Ratio 15.2 (12.0-20.0); Calcium, Blood 8.8 mg/dL (8.5-10.1); Creatinine, Blood 0.72 mg/dL (0.60-1.20); Globulin, Blood 2.7 g/dL (2.2-4.0); Potassium, Blood 3.9 mmol/L (3.5-5.5); Total Protein, Blood 6.4 g/dL (6.4-8.2)
[2022-04-21] MEDS ORDERED: FURO20 PO (21:38)
--- NOTE | 2022-04-22 02:46 | NUR ---
ADMIT PATIENT ARRIVED TO ROOM 335 AT 0120 VIA STRETCHER. HE IS ABLE TO AMBULATE WITH MINIMIAL ASSISTANCE AND A FWW. PATIENT IS ALERT AND ORIENTED X4. NO SKIN ISSUES NOTED. CALL LIGHT WITHIN REACH.
[2022-04-22 03:11] LABS: BASOPHILS ABSOLUTE AUTO 0.03 K/mm3 (0.00-0.23); BASOPHILS PERCENT AUTO 0 % (0-2); EOSINOPHILS PERCENT AUTO 0 % (0-6); Hematocrit 26.1 % (37.0-53.0); Hemoglobin 7.3 g/dL (13.5-17.5); IMMATURE GRAN ABSOLUTE AUTO 0.04 K/mm3 (0.00-0.10); IMMATURE GRAN PERCENT AUTO 1 % (0-1); LYMPHOCYTES PERCENT AUTO 4 % (21-46); MONOCYTES ABSOLUTE AUTO 0.19 K/mm3 (0.16-1.47); MONOCYTES PERCENT AUTO 3 % (4-13); Mean Corpuscular HGB 22.9 pg (26.0-34.0); Mean Corpuscular Volume 82 fL (80-100); Mean Platelet Volume 10.2 fL (9.1-12.4); NEUTROPHILS ABSOLUTE AUTO 6.19 K/mm3 (1.96-9.15); NEUTROPHILS PERCENT AUTO 92 % (41-73); NRBC ABSOLUTE 0.04 K/mm3 (0.00-0.02); NRBC Auto 0.6 /100 WBC (0.0-0.2); Platelet Count 238 K/mm3 (150-400); RDW Coefficient Variation 21.1 % (11.7-14.2); RDW Standard Deviation 62.4 fL (35.1-46.3); Red Blood Cell Count 3.19 M/mm3 (4.30-5.90); White Blood Cell Count 6.75 K/mm3 (4.00-11.30)
[2022-04-22 03:30] LABS: Albumin, Blood 3.6 g/dL (3.4-5.0); Albumin/Globulin Ratio 1.2 (0.8-1.8); Bilirubin, Total 1.9 mg/dL (0.1-1.0); Bun/Creatinine Ratio 16.2 (12.0-20.0); Calcium, Blood 8.1 mg/dL (8.5-10.1); Creatinine, Blood 0.68 mg/dL (0.60-1.20); Globulin, Blood 2.9 g/dL (2.2-4.0); Potassium, Blood 3.5 mmol/L (3.5-5.5); Total Protein, Blood 6.5 g/dL (6.4-8.2)
--- NOTE | 2022-04-22 06:40 | NUR ---
SHIFT SUMMARY PATIENT ALERT AND ORIENTED. HAD NO COMPLAINTS OF PAIN OR SHORTNESS OF BREATH. URINAL AT BEDSIDE DUE TO PATIENT EXPERIENCING FREQUENCY. NO ACUTE ISSUES NOTED OVERNIGHT. CALL LIGHT WITHIN REACH. REPORT GIVEN TO ONCOMING RN.
[2022-04-22 12:39] LABS: CPK Creatine Kinase 112 U/L (39-308)
--- NOTE | 2022-04-22 16:40 | NUR ---
SUMMARY- PT A/O X3-4- FORGETFUL TO DETAIL. USES CALL LIGHT. PT IS ON ROOM AIR WITH CONT PULSE OX, SATS FROM 92-94%. LUNGS WITH CRACKLES IN BASES, DIM BASES AND FREQ HAD FAINT EXP WHEEZE. FREQ USES PURSED LIP BREATHING AND CALLED A FEW TIMES THIS SHIFT COMPLAINING OF SOB. CALL TO RT, ADMINISTERING NEB TX HELPFUL FOR SOB. PLACED A SCHAEFFER BY PT REQUESE RELATED TO FREQ VOIDS WITH LASIX AND ACTIVITY OF GETTING UP SO FREQ, URGE INCONT AND GETTING SKIN WET. ORDER RECEIVED FROM DR MULTANI FOR OCCURATE I/O AND TO DECREASE EXERTIONAL DYSPNEA. PT TOLERATING FOOD AND FLUIDS WITHOUT DIFFICULTY. HAD ONE UNIT OF PRBC'S TODAY FOR LOW H/H WILL F/U IN AM. BLOOD SUGARS ELEVATED UPPER 100'S, COVERED WITH SSRI- WILL REPORT TO JASWINDER RN.
--- NOTE | 2022-04-22 23:58 | NUR ---
UPDATE TELE MONITORED NOTIFIED THIS RN OF 8 BEAT RUN OF VTACH, PT ASYMPTOMATIC. COLLECTIONS CLERK PROVIDER NOTIFIED, NO NEW ORDERS AT THIS TIME.
--- NOTE | 2022-04-23 04:54 | NUR ---
SHIFT SUMMARY A/OX4, SBA WITH CANE TO BATHROOM. COMPLIANT WITH CPAP, CONT. BIOX IN PLACE WITH SATS GREATER THAN 92. TELE AFIB 70-80S. VSS, NO ACUTE CHANGES AT THIS TIME. BED IN LOWEST POSIITON WITH CALL LIGHT IN REACH. WILL CONTINUE TO MONITOR AND REPORT TO ONCOMING RN.
[2022-04-23 08:02] LABS: Hematocrit 26.3 % (37.0-53.0); Hemoglobin 7.4 g/dL (13.5-17.5); Mean Corpuscular HGB 22.8 pg (26.0-34.0); Mean Corpuscular HGB Conc 28.1 g/dL (31.5-36.5); Mean Corpuscular Volume 81 fL (80-100); Mean Platelet Volume 10.4 fL (9.1-12.4); NRBC ABSOLUTE 0.07 K/mm3 (0.00-0.02); NRBC Auto 0.6 /100 WBC (0.0-0.2); Platelet Count 232 K/mm3 (150-400); RDW Coefficient Variation 20.5 % (11.7-14.2); RDW Standard Deviation 60.1 fL (35.1-46.3); Red Blood Cell Count 3.24 M/mm3 (4.30-5.90); White Blood Cell Count 11.47 K/mm3 (4.00-11.30)
[2022-04-23 08:24] LABS: Albumin, Blood 3.2 g/dL (3.4-5.0); Albumin/Globulin Ratio 1.2 (0.8-1.8); Bilirubin, Total 1.6 mg/dL (0.1-1.0); Bun/Creatinine Ratio 22.4 (12.0-20.0); Calcium, Blood 8.3 mg/dL (8.5-10.1); Creatinine, Blood 0.76 mg/dL (0.60-1.20); Globulin, Blood 2.7 g/dL (2.2-4.0); Total Protein, Blood 5.9 g/dL (6.4-8.2)
--- NOTE | 2022-04-23 16:40 | NUR ---
SHIFT SUMMARY: PT A&O X4, PLEASANT, AND COOPERATIVE. PT HAD NO COMPLAINTS OF PAIN OR DISCOMFORT DURING THE SHIFT. PT RECEVIED INFUSION OF SODIUM FERRIC GLUCONATE. PT HAD NO ADVERSE REACTIONS OR SYMPTOMS. PT NEEDS A GUAIC STOOL STAMPLE, HAT PLACED IN BATHROOM. DR. MULTANI DC'D GLUCOSE STICK CHECKS AND LISPRO INSULIN INJECTIONS. PT CBG 0800 105 AND 1200 113. PT RESTING IN BED WITH CALL LIGHT WITHIN REACH.
--- NOTE | 2022-04-24 03:38 | NUR ---
SUMMARY: PT A/OX4, SPECIFIES NEEDS AND IS PLEASANT AND COOPERATIVE W/CARE. HE REPOSITIONS SELF IN BED AND IS UP W/SBA AND FWW. SCHAEFFER IS IN PLACE FOR RETENTION AND ACCURATE I/Os. HE CONT'S TO HAVE SCATTERED CRACKLES TO BILAT LUNG LOBES AND IS BEING DIURESED W/LASIX. SPO2 WNL ON 2L O2 WA AND TOLERATED CPAP AT HS W/CONT BIOX INTACT. GUAIAC STILL PENDING D/T NO BM THIS SHIFT. PT REMAINS ON TELEMETRY IN AFIB W/OCC PACED BEATS AT 50s-60s BPM. VSS/AFEBRILE, NO ACUTE CHANGES. POSSIBLE D/C TODAY. WCTM AND REPORT TO DAY RN.
[2022-04-24 05:13] LABS: Hematocrit 25.9 % (37.0-53.0); Hemoglobin 7.3 g/dL (13.5-17.5); Mean Corpuscular HGB 22.9 pg (26.0-34.0); Mean Corpuscular HGB Conc 28.2 g/dL (31.5-36.5); Mean Corpuscular Volume 81 fL (80-100); Mean Platelet Volume 9.8 fL (9.1-12.4); NRBC ABSOLUTE 0.08 K/mm3 (0.00-0.02); NRBC Auto 0.8 /100 WBC (0.0-0.2); Platelet Count 222 K/mm3 (150-400); RDW Standard Deviation 62.2 fL (35.1-46.3); Red Blood Cell Count 3.19 M/mm3 (4.30-5.90); White Blood Cell Count 10.05 K/mm3 (4.00-11.30)
[2022-04-24 05:36] LABS: Albumin, Blood 3.1 g/dL (3.4-5.0); Albumin/Globulin Ratio 1.2 (0.8-1.8); Bilirubin, Total 1.2 mg/dL (0.1-1.0); Bun/Creatinine Ratio 23.5 (12.0-20.0); Calcium, Blood 8.1 mg/dL (8.5-10.1); Creatinine, Blood 0.68 mg/dL (0.60-1.20); Globulin, Blood 2.6 g/dL (2.2-4.0); Potassium, Blood 4.1 mmol/L (3.5-5.5); Total Protein, Blood 5.7 g/dL (6.4-8.2)
--- NOTE | 2022-04-24 15:10 | NUR ---
SHIFT SUMMARY PT AWAKE AT START OF SHIFT, WATCHING TV. PLEASANT AND CO-OP WITH CARE. SCHAEFFER TO GRAVITY, PATENT. LASIX GIVEN PER EMAR WITH GOOD OUTPUT; SEE CHART. DVT TO RLE; R LEG LARGER THAN LEFT. UP TO CHAIR AT BS AND LATER TO SHOWER. DR JOHNSON IN TO SEE PT THIS AM. POSSIBLE D/C HOME TODAY OR TOMORROW. ECHO ORDERED AND COMPLETE AT THIS TIME. PT DENIED FURTHER NEEDS. CALL LT IN REACH.
--- NOTE | 2022-04-25 05:39 | NUR ---
SUMMARY: PT A/OX4, SPECIFIES NEEDS AND IS PLEASANT AND COOPERATIVE W/CARE. HE REMAINS A.FIB, OCC PACED W/BBB AT 50'S-60'S BPM. PT TOLERATED CPAP AT HS W/CONT BIOX INTACT AND RA WA. SCHAEFFER IS PATENT/DRAINING TO GRAVITY W/DIURESIS VIA DAILY LASIX. TRACE EDEMA PERSISTS TO BLE'S W/RLE MORE SWOLLEN THEN LLE D/T DVT. LOTION APPLIED TO SCALY DISCOLORED SHINS PER EMAR. NO ACUTE CHANGES, VSS/AFEBRILE. PROBABLE D/C HOME TODAY. WCTM AND REPORT TO DAY RN.
[2022-04-25 05:43] LABS: BASOPHILS ABSOLUTE AUTO 0.07 K/mm3 (0.00-0.23); BASOPHILS PERCENT AUTO 1 % (0-2); EOSINOPHILS ABSOLUTE AUTO 0.32 K/mm3 (0.00-0.68); EOSINOPHILS PERCENT AUTO 4 % (0-6); Hematocrit 24.9 % (37.0-53.0); IMMATURE GRAN ABSOLUTE AUTO 0.06 K/mm3 (0.00-0.10); IMMATURE GRAN PERCENT AUTO 1 % (0-1); LYMPHOCYTES ABSOLUTE AUTO 1.12 K/mm3 (0.84-5.20); LYMPHOCYTES PERCENT AUTO 13 % (21-46); MONOCYTES PERCENT AUTO 15 % (4-13); Mean Corpuscular HGB 23.1 pg (26.0-34.0); Mean Corpuscular HGB Conc 28.1 g/dL (31.5-36.5); Mean Corpuscular Volume 82 fL (80-100); Mean Platelet Volume 10.5 fL (9.1-12.4); NEUTROPHILS PERCENT AUTO 67 % (41-73); NRBC Auto 1.2 /100 WBC (0.0-0.2); Platelet Count 225 K/mm3 (150-400); RDW Coefficient Variation 21.4 % (11.7-14.2); RDW Standard Deviation 64.2 fL (35.1-46.3); Red Blood Cell Count 3.03 M/mm3 (4.30-5.90); White Blood Cell Count 8.67 K/mm3 (4.00-11.30)
[2022-04-25 06:03] LABS: Bun/Creatinine Ratio 18.8 (12.0-20.0); Calcium, Blood 8.4 mg/dL (8.5-10.1); Creatinine, Blood 0.85 mg/dL (0.60-1.20); Potassium, Blood 3.9 mmol/L (3.5-5.5)
[2022-04-25 10:39] LABS: Stool Occult Blood Guaiac 1 Pos (Neg)
[2022-04-25 16:10] LABS: Hematocrit 27.4 % (37.0-53.0); Hemoglobin 7.6 g/dL (13.5-17.5); Mean Corpuscular HGB 22.8 pg (26.0-34.0); Mean Corpuscular HGB Conc 27.7 g/dL (31.5-36.5); Mean Corpuscular Volume 82 fL (80-100); Mean Platelet Volume 10.5 fL (9.1-12.4); NRBC ABSOLUTE 0.09 K/mm3 (0.00-0.02); Platelet Count 244 K/mm3 (150-400); RDW Coefficient Variation 21.5 % (11.7-14.2); RDW Standard Deviation 64.2 fL (35.1-46.3); Red Blood Cell Count 3.33 M/mm3 (4.30-5.90); White Blood Cell Count 8.96 K/mm3 (4.00-11.30)
--- NOTE | 2022-04-25 16:46 | NUR ---
SHIFT SUMMARY- VSS. PT A&O X3. SCHAEFFER D/C'D DUE TO LEAKING, OK'D WITH DR. WILL CONTINUE TO MEASURE I&O'S. URINE YELLOW/CLEAR. APPETITE EXCELLENT. PT UP IN CHAIR PART OF SHIFT. O2 2L VIA NC. TELE REPORT SHORT RUN V-TACH 5 BEATS AROUND 0900, ASYMPTOMATIC. RLE SWOLLEN PIT +1. CALL LIGHT IN REACH.
--- NOTE | 2022-04-26 01:43 | NUR ---
04/25/222213 PT SITTING ON EDGE OF BED, DENIES ANY DISCOMFORT AT THIS TIME. TELE IS AFIB, MOSTLY PACED AT 53. PT HAS DISCOLORATION AND DRY SKIN TO LE'S, RLE HAD EDEMA. PT HAS MEDICATED LOTION FOR LE'S. NO OTHER APPARENT SIGNS OF DISTRESS. CALL LIGHT IS IN REACH.
--- NOTE | 2022-04-26 02:16 | NUR ---
0000 PT LYING IN BED, AWAKE, HAS PULLED THE O2 SENSOR TAPE OFF OF FINGER. REPLACED THE TAPE ON THE PT'S FINGER, O2 SENSOR IS NOW WORKING WELL. PT IS WEARING CPAP. NO OTHER APPARENT SIGNS OF DISTRESS. PT DENIES NEED FOR ANYTHING ELSE. CALL LIGHT IS IN REACH.
--- NOTE | 2022-04-26 02:17 | NUR ---
PT LYING IN BED, AWAKE, HAS PULLED THE O2 SENSOR TAPE OFF OF HIS FINGER AGAIN. REPLACED O2 SENSOR TAPE, COVERED WITH NETTING. PT WANTS TO WEAR O2 INSTEAD OF CPAP, PLACED PT'S O2 ON, IT IS ON 2L. O2 SENSOR IS NOW WORKING WELL. NO OTHER APPARENT SIGNS OF DISTRESS. PT DENIES NEED FOR ANYTHING ELSE AT THIS TIME. CALL LIGHT IS IN REACH.
--- NOTE | 2022-04-26 04:38 | NUR ---
PT IS AAO X 4, ON 2L NC. USES CPAP AT NIGHT WITH CONTINUOUS BIOX. PT PULLED THE CONTINUOUS BIOX OFF OF HIS FINGER A COUPLE OF TIMES DURING THE NIGHT. DID NOT APPEAR TO BE CONFUSED, JUST LOOKED LIKE HE IS A RESTLESS SLEEPER. PT WORE THE CPAP FOR MOST OF THE NIGHT AND THEN PUT HIS NC O2 BACK ON. PT HAS DISCOLORATION TO LE'S WITH EDEMA IN THE RLE, USES A MEDICATED CREAM FOR HIS LEGS.TELE WAS AFIB, MOSTLY PACED.
--- NOTE | 2022-04-26 04:38 | NUR ---
PT LYING IN BED, EYES CLOSED, APPEARS TO BE RESTING. BREATHING IS EVEN, UNLABORED. NO APPARENT SIGNS OF DISTRESS. CALL LIGHT IS IN REACH.
[2022-04-26 05:22] LABS: BASOPHILS ABSOLUTE AUTO 0.09 K/mm3 (0.00-0.23); BASOPHILS PERCENT AUTO 1 % (0-2); EOSINOPHILS ABSOLUTE AUTO 0.29 K/mm3 (0.00-0.68); EOSINOPHILS PERCENT AUTO 3 % (0-6); Hematocrit 28.3 % (37.0-53.0); Hemoglobin 7.8 g/dL (13.5-17.5); IMMATURE GRAN ABSOLUTE AUTO 0.08 K/mm3 (0.00-0.10); IMMATURE GRAN PERCENT AUTO 1 % (0-1); LYMPHOCYTES ABSOLUTE AUTO 1.12 K/mm3 (0.84-5.20); LYMPHOCYTES PERCENT AUTO 13 % (21-46); MONOCYTES ABSOLUTE AUTO 1.22 K/mm3 (0.16-1.47); MONOCYTES PERCENT AUTO 14 % (4-13); Mean Corpuscular HGB 22.7 pg (26.0-34.0); Mean Corpuscular HGB Conc 27.6 g/dL (31.5-36.5); Mean Corpuscular Volume 82 fL (80-100); Mean Platelet Volume 10.3 fL (9.1-12.4); NEUTROPHILS PERCENT AUTO 68 % (41-73); NRBC ABSOLUTE 0.08 K/mm3 (0.00-0.02); NRBC Auto 0.9 /100 WBC (0.0-0.2); Platelet Count 268 K/mm3 (150-400); RDW Coefficient Variation 21.8 % (11.7-14.2); RDW Standard Deviation 63.3 fL (35.1-46.3); Red Blood Cell Count 3.44 M/mm3 (4.30-5.90)
[2022-04-26 05:50] LABS: Bun/Creatinine Ratio 20.9 (12.0-20.0); Calcium, Blood 8.6 mg/dL (8.5-10.1); Creatinine, Blood 0.77 mg/dL (0.60-1.20)
--- NOTE | 2022-04-26 06:19 | NUR ---
PT LYING IN BED, AWAKE, DENIES NEED FOR ANYTHING AT THIS TIME. NO APPARENT SIGNS OF DISTRESS. CALL LIGHT IS IN REACH. NO OTHER CHANGES THIS SHIFT.
[2022-04-26 09:48] LABS: Stool Occult Blood Guaiac 1 Pos (Neg)
--- NOTE | 2022-04-26 11:33 | NUR ---
SPOKE WITH DR ON TELE REPORT, WILL ORDER AND CONTINUE TO MONITOR.
--- NOTE | 2022-04-26 12:12 | NUR ---
BLADDER SCANNED PT @1030, 187 IN BLADDER NOTED. PT HAS SINCE VOIDED 200 MLS. PT IN DISCOMFORT BUT STATES CATH HAS CAUSED THIS DISCOMFORT AFTER BEFORE, TREATED FOR PAIN, SEE EMAR. SOURAV STYLESIUNE TO DARCY.
[2022-04-26] MEDS ORDERED: PANT40 PO (16:32)
[2022-04-26] MEDS ORDERED: SPIR25 PO (16:33)
[2022-04-26] MEDS ORDERED: METO25ER PO (16:34)
[2022-04-26] MEDS ORDERED: Prinivil10 MG PO (16:36)
--- NOTE | 2022-04-26 17:43 | NUR ---
SHIFT SUMMARY- VSS. PT C/O PAIN WHEN URINATING, CALL DR FOR PAIN RELIEF ORDER, SEE EMAR. PT VOIDED APROXIMATE 850 ML DURING SHIFT. BLADDER SCAN 387. PT VOIDED 75 SINCE. CONTACTED REGARDING. PT INDEPENDANT IN ROOM. PT DESATS WITH AMBULATION. ON 2L O2 SATING 91-95% WITH REST. PT APPETITE GOOD. C/O BLADDER SPASMS AND PAIN WHEN ATTEMPTING TO URINATE, PT DID STATE THAT "HE HAS HAD THIS PROBLEM BEOFRE AFTER A SCHAEFFER CATH. WILL CONTINUE TO MONITOR. CALL LIGHT IN REACH.
--- NOTE | 2022-04-26 18:14 | NUR ---
CALLED DR REGARDING TP DISCOMFORT WITH BLADDER AREA AND VOIDING. DR REQUEST ORDERS, WILL FOLLOW THROUGH. WILL CONTINUE TO MONITOR. ANDF TREAT PER EMAR
--- NOTE | 2022-04-26 18:53 | NUR ---
PT ATTEMPTING TO URINATE. GAVE 2 NORCO, WILL CONTINUE TO MONITOR.
[2022-04-26 19:52] LABS: Source, Urine Voided
[2022-04-26 20:05] LABS: Appearance, Urine Clear (Clear); Bilirubin, Urine Neg (Neg); Blood, Urine 2+ (Neg); Color, Urine Yellow (P-Yellow); Glucose Qualitative, Urine Neg (Neg); Ketones, Urine Neg (Neg); Leukocyte Esterase, Urine 2+ (Neg); Nitrite, Urine Neg (Neg); Protein, Urine Neg (Neg); Urobilinogen, Urine NORM (Normal); pH, Urine 6.5 (5.0-8.0)
[2022-04-26 20:22] LABS: Amorphous Light (0-Heavy); Renal Epithelial Rare /hpf (0-Rare); Squamous Epithelial Cells Rare /hpf (Few)
[2022-04-26 20:23] LABS: Bacteria Few /hpf
--- NOTE | 2022-04-27 04:24 | NUR ---
SUMMARY: START OF SHIFT RECIEVED IN REPORT THAT PATIENT WAS NOT READY FOR DISCHARGE. HE IS HAVING UNCONTROLLED PAIN WHILE URINATING. PATIENT JUST HAD NORCO ADDED TO HIS EMAR. PATIENT HAD A SCHAEFFER REMOVED ABOUT A DAY AGO THAT HE HAS BEEN HAVING MILD RETENTION AND PAIN WHILE URINATING. CALLED NIGHT MD TO MAKE THEM AWARE PATIENT WAS NOT READY FOR DC. ALSO REQUESTED THAT FLOMAX DOSE BE INCREASED. GAVE FLOMAX IN ADDITION TO NIGHT TIME MEDS. PATIENT ABLE TO VOID FREQUENTLY 100-200 ML AT A TIME THROUGHOUT THE NIGHT. MEDICATED ONCE FOR BLADDER PAIN WITH NORCO. UA SENT AT BEGINING OF SHIFT. PATIENT SLEPT FOR A FEW HOURS WEARRING CPAP THEN WAS UP FOR REMAINING OF NIGHT. VSS. POST RESIDUAL VOID 227ML. NO ACUTE EVENT OVERNIGHT.
== END 2022-04-27 12:54 | disposition home or self-care (01) | DRG 291 ==
LOC: ER 16:40 → MEDS 04-22 01:09 → ENPENDDIS 04-26 16:53 → MEDS 04-27 12:54
PROVIDERS: Internal Medicine; Physician Assistant; Student in an Organized Health Care Education/Training Program; ADMIT Internal Medicine
PROC: 30233N1 Transfusion of Nonautologous Red Blood Cells into Peripheral Vein, Percutaneous Approach (ICD-10-PCS; principal; 2022-04-22)
DX: I11.0 Hypertensive heart disease with heart failure (principal); I50.23 Acute on chronic systolic (congestive) heart failure; J96.01 Acute respiratory failure with hypoxia; I82.401 Acute embolism and thrombosis of unspecified deep veins of right lower extremity; J44.1 Chronic obstructive pulmonary disease with (acute) exacerbation; N13.30 Unspecified hydronephrosis; E11.9 Type 2 diabetes mellitus without complications; I48.91 Unspecified atrial fibrillation; M54.50 Low back pain, unspecified; M19.90 Unspecified osteoarthritis, unspecified site; E78.5 Hyperlipidemia, unspecified; F17.200 Nicotine dependence, unspecified, uncomplicated; K21.9 Gastro-esophageal reflux disease without esophagitis; N40.0 Benign prostatic hyperplasia without lower urinary tract symptoms; G47.33 Obstructive sleep apnea (adult) (pediatric); E66.9 Obesity, unspecified; D64.9 Anemia, unspecified; Z68.31 Body mass index [BMI] 31.0-31.9, adult; I27.20 Pulmonary hypertension, unspecified; Z90.49 Acquired absence of other specified parts of digestive tract; Z99.89 Dependence on other enabling machines and devices; Z88.8 Allergy status to other drugs, medicaments and biological substances; Z79.01 Long term (current) use of anticoagulants; Z79.899 Other long term (current) drug therapy
CPT/HCPCS: 36415; 36430; 71260; 76770; 80048; 80053; 81001; 82270; 82272; 82550; 82947; 83036; 83880; 84484; 85025; 85027; 86850; 86900; 86901; 86923; 93005; 93010; 93306; 94640; 94644; 94660; 94664; 94760; 94761; 94762; 96374-59; 97116; 97162; 97165; 97530; 99285-25; A9270; C9113; J1940; J2916; J7040; J7050; J7512; P9016; Q9967

== ENCOUNTER 2023-01-09 17:08 | Inpatient (IN) | payer OTHER ==
[~2023-01-09] VITALS: Ht 177.8 cm; Wt 101.7 kg
[2023-01-09] VITALS (13 sets, daily range): BP systolic 103–160; BP diastolic 45–135
[~2023-01-09 17:08] MED LIST changes: +METO25ER PO; +PANT40 PO; +SPIR25 PO; +ZESTRIL40 M1 PO
[2023-01-09 17:20] LABS: Base Excess Venous 6.6 mmol/L; Bicarbonate Venous 28.1 mmol/L (24.0-30.0); PCO2 Venous 84.6 mmHg (38-42); pH Blood Venous 7.22 (7.34-7.37)
[2023-01-09 17:21] LABS: BASOPHILS ABSOLUTE AUTO 0.08 K/mm3 (0.00-0.23); BASOPHILS PERCENT AUTO 1 % (0-2); EOSINOPHILS ABSOLUTE AUTO 0.05 K/mm3 (0.00-0.68); EOSINOPHILS PERCENT AUTO 1 % (0-6); Hematocrit 35.9 % (37.0-53.0); Hemoglobin 11.2 g/dL (13.5-17.5); IMMATURE GRAN ABSOLUTE AUTO 0.27 K/mm3 (0.00-0.10); IMMATURE GRAN PERCENT AUTO 3 % (0-1); LYMPHOCYTES PERCENT AUTO 8 % (21-46); MONOCYTES PERCENT AUTO 12 % (4-13); Mean Corpuscular HGB 32.9 pg (26.0-34.0); Mean Corpuscular HGB Conc 31.2 g/dL (31.5-36.5); Mean Corpuscular Volume 106 fL (80-100); Mean Platelet Volume 9.9 fL (9.1-12.4); NEUTROPHILS ABSOLUTE AUTO 6.31 K/mm3 (1.96-9.15); NEUTROPHILS PERCENT AUTO 75 % (41-73); NRBC ABSOLUTE 0.11 K/mm3 (0.00-0.02); NRBC Auto 1.3 /100 WBC (0.0-0.2); Platelet Count 166 K/mm3 (150-400); RDW Coefficient Variation 21.8 % (11.7-14.2); RDW Standard Deviation 84.6 fL (35.1-46.3); White Blood Cell Count 8.41 K/mm3 (4.00-11.30)
[2023-01-09 17:52] LABS: Albumin, Blood 3.8 g/dL (3.4-5.0); Albumin/Globulin Ratio 1.1 (0.8-1.8); Bilirubin, Total 2.9 mg/dL (0.1-1.0); Bun/Creatinine Ratio 21.1 (12.0-20.0); Calcium, Blood 8.8 mg/dL (8.5-10.1); Creatinine, Blood 0.76 mg/dL (0.60-1.20); Globulin, Blood 3.6 g/dL (2.2-4.0); Potassium, Blood 4.4 mmol/L (3.5-5.5); Total Protein, Blood 7.4 g/dL (6.4-8.2)
[2023-01-09 20:17] LABS: PO2 Arterial 82.4 mmHg (80-100); pH Blood Arterial 7.07 (7.35-7.45)
[2023-01-09 20:18] LABS: PCO2 Arterial > 104 mmHg (35-45)
[2023-01-09 20:38] LABS: Base Excess Venous 4.3 mmol/L; PCO2 Venous 98.3 mmHg (38-42); pH Blood Venous 7.14 (7.34-7.37)
[2023-01-09 21:16] LABS: Base Excess Venous 5.7 mmol/L; Bicarbonate Venous 26.7 mmol/L (24.0-30.0); PCO2 Venous 94.9 mmHg (38-42)
[2023-01-09 21:17] LABS: pH Blood Venous 7.17 (7.34-7.37)
--- NOTE | 2023-01-09 22:00 | NUR ---
PT ARRIVES TO ICU 10 FROM EMERGENCY ROOM AT 2130. PT SLIDE TRANSFERRED TO BED FROM [facility]. INTUBATED AC/VC 20, Tv 500, FIO2 55 %, PEEP 5. ARRIVED AT 30 MCG'S PROPOFOL PER KG/MIN. PT NOT TOLERATING VENT AT THAT SETTING. INCREASED TO 40 MCG'S/KG/MIN. WILL MONITOR FOR ADDITIONAL TITRATION. WILL REVIEW CHART AND PLAN OF CARE FOR THIS PT.
[2023-01-09 23:11] LABS: PCO2 Arterial 47.6 mmHg (35-45); pH Blood Arterial 7.42 (7.35-7.45)
[2023-01-09 23:12] LABS: Source, Urine Foley catheter
[2023-01-09 23:13] LABS: PO2 Arterial 54.4 mmHg (80-100)
[2023-01-09 23:14] LABS: Blood, Urine Neg (Neg); Glucose Qualitative, Urine Neg (Neg); Ketones, Urine Neg (Neg); Leukocyte Esterase, Urine 2+ (Neg); Nitrite, Urine Neg (Neg); Protein, Urine 2+ (Neg); Urobilinogen, Urine 3+ (Normal)
[2023-01-09 23:24] LABS: Appearance, Urine Hazy (Clear); Bilirubin, Urine 1+ (Neg); Color, Urine Amber (P-Yellow)
[2023-01-09 23:27] LABS: Bacteria Mod /hpf; Red Blood Cells, Urine 0-2 /hpf (0-2); Squamous Epithelial Cells Rare /hpf (Few)
[2023-01-09 23:28] LABS: Hyaline Casts 0-2 /lpf (0-2)
[2023-01-10] VITALS (84 sets, daily range): BP systolic 107–155; BP diastolic 47–73
--- NOTE | 2023-01-10 | NUR ---
PT'S TEMP ON ADMIT REGISTERED 95.5 FROM SCHAEFFER CATH, AND TEMPORAL TEMP [address] KIARA HUGGER TO REWARM PT. TEMPERATURE HAS BEEN IMPROVING. PROPOFOL AT 50 MCG'S/KG/MIN. SPUTUM AND URINE SENT TO LAB FOR PROCESSING.
[2023-01-10 04:51] LABS: Base Excess Venous 13.1 mmol/L; Bicarbonate Venous 36.2 mmol/L (24.0-30.0); PCO2 Venous 34.3 mmHg (38-42); pH Blood Venous 7.61 (7.34-7.37)
[2023-01-10 05:06] LABS: BASOPHILS ABSOLUTE AUTO 0.01 K/mm3 (0.00-0.23); BASOPHILS PERCENT AUTO 0 % (0-2); EOSINOPHILS PERCENT AUTO 0 % (0-6); Hematocrit 34.2 % (37.0-53.0); IMMATURE GRAN ABSOLUTE AUTO 0.09 K/mm3 (0.00-0.10); IMMATURE GRAN PERCENT AUTO 1 % (0-1); LYMPHOCYTES ABSOLUTE AUTO 0.22 K/mm3 (0.84-5.20); LYMPHOCYTES PERCENT AUTO 3 % (21-46); MONOCYTES ABSOLUTE AUTO 0.18 K/mm3 (0.16-1.47); MONOCYTES PERCENT AUTO 3 % (4-13); Mean Corpuscular HGB 32.6 pg (26.0-34.0); Mean Corpuscular HGB Conc 32.2 g/dL (31.5-36.5); Mean Corpuscular Volume 102 fL (80-100); Mean Platelet Volume 10.5 fL (9.1-12.4); NEUTROPHILS ABSOLUTE AUTO 6.41 K/mm3 (1.96-9.15); NEUTROPHILS PERCENT AUTO 93 % (41-73); NRBC ABSOLUTE 0.05 K/mm3 (0.00-0.02); NRBC Auto 0.7 /100 WBC (0.0-0.2); Platelet Count 159 K/mm3 (150-400); RDW Coefficient Variation 21.8 % (11.7-14.2); RDW Standard Deviation 81.8 fL (35.1-46.3); Red Blood Cell Count 3.37 M/mm3 (4.30-5.90); White Blood Cell Count 6.91 K/mm3 (4.00-11.30)
[2023-01-10 05:57] LABS: Bun/Creatinine Ratio 23.9 (12.0-20.0); Calcium, Blood 9.3 mg/dL (8.5-10.1); Creatinine, Blood 0.84 mg/dL (0.60-1.20); Magnesium, Blood 1.9 mg/dL (1.6-2.4); Potassium, Blood 3.4 mmol/L (3.5-5.5)
--- NOTE | 2023-01-10 07:22 | NUR ---
BEGINNING OF SHIFT / VTACH Assumed care of pt at 0700. Bedside report received from Eddy WINN. During bedside report, pt had an episode of polymorphic vtach that lasted 8 seconds and resolved spontaneously. audio visual engineer Stacey placed call to Dr Ramírez to notify of arrhythmia and discuss electrolytes. Provider ordered magnesium and potassium replacement. Zoll placed on patient. No additional arrhythmia noted at this time. HR 52-56, sinus bradycardia with occasional ventricular paced beats. Sedated with propofol at 50 mcg/kg/min, dosing weight 102 kg. 8.0 cm ETT is at expected location of 24 cm at lip. Vent settings ACVC 14/500/5/45%. Actual RR 14. Peak pressure 19 cmH20. SpO2 93%. ETCO2 36.
--- NOTE | 2023-01-10 09:48 | NUR ---
Dr Ramírez in to see patient. Discussed that R pupil is irregular shape and not responsive to light. Discussed that pt withdraws BUE and BLE to nail bed pressure. Provider assessed R eye and states pt has had cateracts surgery. Discussed that OG tube placement has not been reported on CXR report. Provider assessed xray and stated to wait until report is available before giving PT xarelto.
[2023-01-10 11:14] LABS: Base Excess Venous 11.2 mmol/L; Bicarbonate Venous 33.7 mmol/L (24.0-30.0); PCO2 Venous 46.1 mmHg (38-42); pH Blood Venous 7.48 (7.34-7.37)
--- NOTE | 2023-01-10 11:30 | NUR ---
Noticed brown, coffee ground drainage from OG tube. Collected in specimen cup and shown to Dr Delgado. Provider orders for guiac of OG tube contents. Okay to give jaiden, per provider.
--- NOTE | 2023-01-10 17:49 | NUR ---
SUMMARY Neuro: Sedated with propofol at 30 mcg/kg/min. Patient follows commands and nods head yes/no to answer questions with this level of sedation; does not open eyes, however. Moves all extremities with equal strength and range of motion. Cough and gag reflexes intact. L pupil 3 mm, round and reactive to light. R pupil is tear drop shaped and does not have a response to light. Dr Ramírez and Dr Delgado aware. Musc: Total care for all ADLs including Q2H repositioning. Resp: Lungs coarse, diminished in bases. 8.0 cm ETT was repositioning this shift by RT Jose after Dr Delgado reviewed chest xray and recommended advancing ETT by 2 cm. Currently, placement is 25 cm at the teeth or 26 cm at lip. Vent settings ACVC 10/440/5/45%. SpO2 94%. ETCO2 34. Cardiac: No additional episodes of ventricular tachycardia today. Rhythm has been either sinus bradycardia or paced. Edema to BLE remains 4+. GI: Sent OG tube output for occult, resulted positive. Scant amount of drainage to tube, however. Only about 4 mL. No BM this shift. : Excellent urine output from frazier catheter. Skin: Unchanged from inital assessment. Psychosocial: This RN provided update to pt's sister.
[2023-01-10 18:14] LABS: pH Blood Venous 7.52 (7.34-7.37)
[2023-01-10 18:15] LABS: Base Excess Venous 14.7 mmol/L; Bicarbonate Venous 36.9 mmol/L (24.0-30.0); PCO2 Venous 45.7 mmHg (38-42)
--- NOTE | 2023-01-10 18:52 | NUR ---
Reported VBG results to Dr Delgado. Provider ordered for RR to be changed to 8 and for repeat VBG at 2100. These orders communicated to RT Quinteros.
--- NOTE | 2023-01-10 19:33 | NUR ---
ASSUMED CARE OF PT AT 1900. REPORT RECEIVED AT BEDSIDE. PT PRESENTS IN BED. INTUBATED. AC 8, Tv 440, 50%, PEEP 5.0. PT SUCTIONED FOR RETURN OF WHITE SECRETIONS. PROPOFOL FOR SEDATION AT 30 MCG'S/KG/MIN. HEART RATE A-FIB WITH OCCASSIONAL PACED BEATS. VSS. OGT HAS DARK COLORED DRAINAGE TO LIWS. VERY SMALL AMOUNT. PLACED TO CLAMP. LOWER EXTREMITIY EDEMA FOLLOWED: R PEDAL 3 + WITH PALPABLE PEDAL PULSE. 2 + AT ESTRADA, AND 1 + AT KNEE. LEFT PEDAL 4 + WITH PALPABLE PEDAL PULSE, 3 + AT ESTRADA, AND 2 + AT KNEE. WILL REVIEW CHART AND PLAN OF CARE FOR PT. WILL DO Q 2 HOUR TURNS FOR SKIN INTEGRITY, AND BEDBATH THIS NIGHT.
[2023-01-10 21:16] LABS: Base Excess Venous 16.3 mmol/L; Bicarbonate Venous 37.9 mmol/L (24.0-30.0); PCO2 Venous 48.6 mmHg (38-42); pH Blood Venous 7.52 (7.34-7.37)
[2023-01-11] VITALS (83 sets, daily range): BP systolic 90–148; BP diastolic 42–81
--- NOTE | 2023-01-11 03:04 | NUR ---
HAVE DECREASED PROPOFOL TO 35 MCG'S/KG/MIN SECONDARY TO ATTEMPT TO TITRATE DOWN. PENDING PT'S TOLERANCE OF VENT. HAVE SUCTIONED PT PER ETT WITH RETURN OF WHITE TO LIGHT CREAM COLORED SECRETIONS. WILL CONTINUE TO MONITOR.
[2023-01-11 04:03] LABS: pH Blood Venous 7.57 (7.34-7.37)
[2023-01-11 04:04] LABS: BASOPHILS ABSOLUTE AUTO 0.02 K/mm3 (0.00-0.23); BASOPHILS PERCENT AUTO 0 % (0-2); EOSINOPHILS ABSOLUTE AUTO 0.01 K/mm3 (0.00-0.68); EOSINOPHILS PERCENT AUTO 0 % (0-6); Hematocrit 32.4 % (37.0-53.0); Hemoglobin 10.8 g/dL (13.5-17.5); IMMATURE GRAN ABSOLUTE AUTO 0.15 K/mm3 (0.00-0.10); IMMATURE GRAN PERCENT AUTO 1 % (0-1); LYMPHOCYTES ABSOLUTE AUTO 0.69 K/mm3 (0.84-5.20); LYMPHOCYTES PERCENT AUTO 4 % (21-46); MONOCYTES ABSOLUTE AUTO 1.87 K/mm3 (0.16-1.47); MONOCYTES PERCENT AUTO 10 % (4-13); Mean Corpuscular HGB 32.8 pg (26.0-34.0); Mean Corpuscular HGB Conc 33.3 g/dL (31.5-36.5); Mean Corpuscular Volume 99 fL (80-100); Mean Platelet Volume 10.7 fL (9.1-12.4); NEUTROPHILS ABSOLUTE AUTO 15.67 K/mm3 (1.96-9.15); NEUTROPHILS PERCENT AUTO 85 % (41-73); NRBC ABSOLUTE 0.05 K/mm3 (0.00-0.02); NRBC Auto 0.3 /100 WBC (0.0-0.2); Platelet Count 194 K/mm3 (150-400); RDW Coefficient Variation 21.8 % (11.7-14.2); RDW Standard Deviation 77.8 fL (35.1-46.3); Red Blood Cell Count 3.29 M/mm3 (4.30-5.90); White Blood Cell Count 18.41 K/mm3 (4.00-11.30)
[2023-01-11 04:04] LABS: Base Excess Venous 16.2 mmol/L; Bicarbonate Venous 38.7 mmol/L (24.0-30.0); PCO2 Venous 41.5 mmHg (38-42)
[2023-01-11 04:56] LABS: Bun/Creatinine Ratio 22.5 (12.0-20.0); Creatinine, Blood 1.02 mg/dL (0.60-1.20); Magnesium, Blood 2.2 mg/dL (1.6-2.4); Phosphorus, Blood 2.4 mg/dL (2.5-4.9); Potassium, Blood 3.7 mmol/L (3.5-5.5)
--- NOTE | 2023-01-11 05:05 | NUR ---
PT HAS HAD MODERATE AMOUNT OF SECRETIONS RETURNED FROM ETT. HAS MAINAINED ON CURRENT VENT SETTINGS THRU THE SHIFT AND ABLE TO KEEP SATURATIONS >90 PERCENT. HAS HAD GOOD OUTPUT FROM DIURESING THERAPY. IN PROCESS OF SEDATION VACATION AT THIS TIME. WILL CONTINUE TO MONITOR PT, AND WILL REPORT OFF TO ONCOMING RN.
--- NOTE | 2023-01-11 06:13 | NUR ---
SEDATION VACATION COMPLETES. PT TOLERATES WELL. IS ABLE TO FOLLOW COMMANDS. WILL WELDING INSTRUCTOR FINGERS ON COMMAND. PT CURRENTLY BACK TO SEDATION.
--- NOTE | 2023-01-11 07:34 | NUR ---
Assumed care of pt at 0700. Report recieved from Eddy WINN. Pt sedated with propofol at 35 mcg/kg/min. RASS -3. #8 ETT at expected location of 25 cm at teeth. Vent settings ACVC 8/440/5/55%. Actual RR 18. ETCO2 33. SpO2 92%. Sinus norma per monitor with frequent v-paced spikes. BP stable. Nitro paste to left chest wall. OG tube to LIS with no new drainage. Urine clear and yellow in frazier.
[2023-01-11 08:06] LABS: PCO2 Arterial 45.3 mmHg (35-45); PO2 Arterial 59.2 mmHg (80-100); pH Blood Arterial 7.55 (7.35-7.45)
--- NOTE | 2023-01-11 09:45 | NUR ---
Dr Delgado in to see patient. Discussed ABG results with provider. Also discussed that SpO2 is 89% and O2 requirements increased overnight. Discussed that echo results are back and pt has nitropaste ordered. Provider ordered discontinuation of nitro paste. Paste removed from LCW and area wiped clean. Provider in room changed ventilator settings to PS 12/10 and 55%. Currently RR is 26, TV 235. Provider states this is an acceptable tidal volume given pt's severe alkalosis. Propofol decreased to 12.5 mcg/kg/min. Plan to get pt up to recliner chair today.
[2023-01-11 12:12] LABS: Base Excess Venous 16.9 mmol/L; Bicarbonate Venous 37.6 mmol/L (24.0-30.0); PCO2 Venous 55.4 mmHg (38-42); pH Blood Venous 7.47 (7.34-7.37)
--- NOTE | 2023-01-11 13:48 | NUR ---
Sedation has been off for 3 hours. RASS 0. Pt appears receptive to education provided, nodding head when he is reoriented to situation and this RN tells him that caregiver Salma and sister Pati have been updated by this RN. Dr Delgado in room to see patient. Plan to have precedex on standby if pt becomes anxious or restless. Currently, pt is resting comfortably and denies pain.
--- NOTE | 2023-01-11 17:50 | NUR ---
SUMMARY Neuro/Musc: Has been off propofol since this AM. RASS 0. Pt often sleeping, awakes with gentle verbal stimulus and stays awake for several minutes at at time. Moves all extremities with equal strength and range of motion. Able to assist with repositioning. Repositioned Q2H. Sat up in chair for more than 6 hours today. Tolerated OOB activity well. Remains in restraints due to high PEEP requirements. This RN has observed pt reach for ET tube while out of restraints for repositioning. Discussed pt assessment with Dr Delgado and he agrees with keeping pt in restraints. Pt had a fever today, T-Max 100.4. Precedex is ordered in the event that pt becomes restless, however he has remained calm. Resp: Lungs clear t/o. Pt has been on PS 12/10 with 45% FiO2 since early this morning. With these vent settings, RR is 18-22 and tidal volumes are 200-300 mL. These are acceptable values per Dr Delgado. Large amounts of thick yellow sputum suctioned from ETT. Specimen sent as this is a change from yesterday. Currently SpO2 92% and ETCO2 43. Cardiac: SR per monitor with occasional ventricular pacemaker spikes. BP stable. DC'd order for nitro paste today per v/o Dr Delgado. Receeding edema noted to BLE. GI: TF started per orders. Pt had one large melanic stool today; liquid with pellets. : Excellent urine output today. Skin: New blanchable pink area noted to sacrum after pt sat in chair. Protective sacral dressing placed.
--- NOTE | 2023-01-11 18:18 | NUR ---
Update on patient condition given to pt's sister, Pati by this RN
--- NOTE | 2023-01-11 19:30 | NUR ---
ASSUMED CARE OF PT AT 1915. REPORT RECEIVED AT BEDSIDE. PT PRESENTS IN BED. INTUBATED. ON SPONTANEOUS SETTING WITHOUT SEDATION AT THIS TIME. PT REMAINS CALM AND ACTIVELY PARTICIPATES IN REPORT WITH NODS OF HEAD 'YES' AND 'NO'. PT IN NO APPARENT DISTRESS AT THIS TIME. MAINTAINS > 90 PERCENT SATURATIONS ON CURRENT SETTINGS. LOW GRADE FEVER WITH PERSONAL FAN TO KEEP PT COOL. WILL REVIEW CHART AND PLAN OF CARE FOR THIS PT.
--- NOTE | 2023-01-11 22:43 | NUR ---
PT REMAINS OFF SEDATION. ON SPANTANEOUS PER VENT. TOLERATING THIS WELL. HAVE DISCUSSED PLAN OF CARE WITH AGUSTINA, RESPIRATORY THERAPIST. TOLERATING TUBE FEEDING. INCREASE RATE UP 20 ML/HOUR. GOAL OF 50 ML/HOUR WITH 30 ML WATER FLUSH Q 4 HOURS.
[2023-01-12] VITALS (67 sets, daily range): BP systolic 89–133; BP diastolic 42–70
--- NOTE | 2023-01-12 00:32 | NUR ---
DID TITRATE DOBUTAMINE FROM 6MCG'S TO 5 MCG'S. PT WAS NOT TOLERATING BIPAP, AND WAS CHANGED TO HIGH FLOW WITH 60 L/M AND 100 PERCENT FIO2. PT'S SATURATIONS WAS DECREASED. PLACED NRB MASK OVER HF SECONDARY TO PT TENDING TO BREATHE THRU HER MOUTH. THIS DID LITTLE TO INCREASE SATURATIONS. PLACED PT BACK TO BIPAP AT 14/8 WITH 100 PERCENT FIO2. DID INCREASE DOBUTAMINE BACK TO 6 MCG'S. WILL MONITOR. CURRENTLY SATURATIONS 89-90'S.
--- NOTE | 2023-01-12 02:23 | NUR ---
PT INCONTINENT TO LOOSE BM. DARK IN NATURE. NO BAILEY BLOOD TO NOTE.
[2023-01-12 04:10] LABS: BASOPHILS ABSOLUTE AUTO 0.03 K/mm3 (0.00-0.23); BASOPHILS PERCENT AUTO 0 % (0-2); EOSINOPHILS ABSOLUTE AUTO 0.11 K/mm3 (0.00-0.68); EOSINOPHILS PERCENT AUTO 1 % (0-6); Hematocrit 33.8 % (37.0-53.0); Hemoglobin 11.2 g/dL (13.5-17.5); IMMATURE GRAN ABSOLUTE AUTO 0.18 K/mm3 (0.00-0.10); IMMATURE GRAN PERCENT AUTO 1 % (0-1); LYMPHOCYTES ABSOLUTE AUTO 1.09 K/mm3 (0.84-5.20); LYMPHOCYTES PERCENT AUTO 6 % (21-46); MONOCYTES ABSOLUTE AUTO 1.39 K/mm3 (0.16-1.47); MONOCYTES PERCENT AUTO 8 % (4-13); Mean Corpuscular HGB 33.3 pg (26.0-34.0); Mean Corpuscular HGB Conc 33.1 g/dL (31.5-36.5); Mean Corpuscular Volume 101 fL (80-100); Mean Platelet Volume 10.3 fL (9.1-12.4); NEUTROPHILS PERCENT AUTO 84 % (41-73); NRBC ABSOLUTE 0.04 K/mm3 (0.00-0.02); NRBC Auto 0.2 /100 WBC (0.0-0.2); Platelet Count 173 K/mm3 (150-400); RDW Coefficient Variation 22.3 % (11.7-14.2); Red Blood Cell Count 3.36 M/mm3 (4.30-5.90)
[2023-01-12 04:45] LABS: Bun/Creatinine Ratio 23.8 (12.0-20.0); Creatinine, Blood 1.22 mg/dL (0.60-1.20); Magnesium, Blood 2.2 mg/dL (1.6-2.4); Phosphorus, Blood 3.6 mg/dL (2.5-4.9); Potassium, Blood 3.9 mmol/L (3.5-5.5)
--- NOTE | 2023-01-12 05:54 | NUR ---
PT REMAINED ON SPONTANEOUS SETTINGS PER VENT THROUGHOUT THE SHIFT. MAINTAINS > 90 PERCENT SATURATIONS. NODS HEAD 'YES' AND 'NO' APPROPRIATELY TO QUESTIONS. DOES ASSIST SOME IN TURNS. HAVE NOTED DECREASE IN SECRETIONS RETURNED FROM SUCTIONING. TOLERATING TUBE FEEDINGS THAT ARE CURRENTLY AT GOAL. DIURESING WELL WITH OUTPUT > 2000 ML THIS SHIFT. LUNGS CLEAR THROUGHOUT. WILL CONTINUE TO MONITOR PT, AND WILL REPORT OFF TO ONCOMING RN.
--- NOTE | 2023-01-12 07:15 | NUR ---
Assumed care of pt at 0700. Report recieved from Eddy WINN. Pt is not sedated. RASS 0. Awakens with gentle verbal stimulus and maintains alertness for several minutes. Able to follow directions and answer yes/no questions by nodding head. 8.0 cm ETT is at expected location of 25 cm at teeth. Vent settings PS 12/10, 40% FiO2. SpO2 90% or greater. ETCO2 45. RR 18-22. Tidal volumes 400s. Afib per monitor with occasional ventricular paced beats. BP stable.
--- NOTE | 2023-01-12 09:36 | NUR ---
At 0915, this RN and Dr Marie in room to update family on plan of care as preliminary venous duplex suggested low liklihood of DVT. Family was concerned that patient was having pain. This RN and Dr Marie discussing risk/benefit of additional pain medicine and determining if patient would benefit from anxiety medication. While in room having this discussion, pt went into ventricular fibrillation. Discussed with family in room that patient is in an unstable heart rhythm and passing away. Discussed that pt is DNR. Family at bedside holding patient's hand and understanding as BiPAP was removed and dobutamine stopped. Dr Morris presented to bedside less than one minute after patient entering unstable rhyhthm. Pt having agonal breaths and some muscle movement. This RN and charge departed from bedside to give family privacy as pt was passing away. TOD pronounced at 0935 by Shay WINN and franklyn RN.
--- NOTE | 2023-01-12 09:45 | NUR ---
Patient placed on PS 7/[address] Marie. Pt tolerating this change well
--- NOTE | 2023-01-12 11:00 | NUR ---
Extubated at 1050. Placed on 3 LPM NC. SpO2 90% or greater. Pt alert, answering questions, following commands. Verbalizes needs. SCDs placed on patient for VTE prophylaxis. Discussed with Dr Marie that patient has hx DVT and RLE is more edematous than LLE. Provider states that safest option at this time is to provide VTE prophylaxis with SCDs to BLE.
--- NOTE | 2023-01-12 12:32 | NUR ---
PATIENT EDUCATED RE: IGNITION SOURCES AND RISK OF INJURY WHILE OXYGEN IS IN USE. PATIENT REPORTS BEING A CURRENT SMOKER AND IS ON OXYGEN VIA NC. PATIENT DENIES HAVING IGNITION SOURCES IN HIS PERSONAL BELONGINGS. PATIENT VERBALIZED UNDERSTANDING OF EDUCATION AND HAD NO FURTHER QUESTIONS AT THIS TIME.
--- NOTE | 2023-01-12 12:52 | NUR ---
Pt is more drowsy than previous noted. Awakens with gentle verbal stimulus but does not follow directions as readily as previous. Dr Marie notified and in room to assess patient. Plan to continue close monitoring. Pt placed on NC with ETCO2 monitoring.
--- NOTE | 2023-01-12 14:53 | NUR ---
Pt seen by dental hygenist for oral care. Then this RN lifted patient to recliner. Pt able to maintain alertness for > 15 minutes. Pt requests "an ice cold soda pop". Educated pt on precautions regarding PO intake post extubation. Discussed with Dr Marie who stated bedside swallow can be done. Provided pt with one tsp of water. Pt swallowed; was clearing throat many times afterwards. This RN asked pt to say "ahhhh" and as pt did this, his vocal quality was wet/gurgly. Instructed pt to cough. Pt has strong cough but had to cough multiple times to clear the wet vocal quality. NPO status implemented and ST eval ordered per v/o Dr Marie.
--- NOTE | 2023-01-12 16:18 | NUR ---
Assumed care at approximately 1510. Report received from offgoing RN. Pt resting in recliner at time of report. Alert and oriented x2, on 02 via NC at 3 L/min. PIVs in R/arm and L/arm. Dowell catheter in place, draining to gravity. Physical assessment agrees with previously charted assessment data. Patient denies needs att. Will continue to monitor.
--- NOTE | 2023-01-12 18:43 | NUR ---
Shift summary. No change in pt condition since assuming care. Pt resting in recliner, 02 via NC at 3 L/min. No acute needs, VS stable. Will continue to monitor and report off to nightshift RN.
--- NOTE | 2023-01-12 19:00 | NUR ---
ASSUMED CARE PATIENT IN CHAIR. NO FAMILY AT BEDSIDE. IV INFUSING TO TKO. SCHAEFFER IN PLACE DRAINING TO CAVITY. PATIENT SLEEPING IN NO APPARENT DISTRESS. ON 3L NC.
--- NOTE | 2023-01-12 19:50 | NUR ---
EDUCATION PATIENT EDUCATED ON NON SMOKING CAMPUS AND THE RISK OF INJURY AND IGNITION SOURCES WHILE OXYGEN IS IN USE. PATEINT DENIES SMOKING & VERBALIZES UNDERSTANDING.
[2023-01-12 22:31] LABS: PCO2 Arterial 67.8 mmHg (35-45); PO2 Arterial 70.8 mmHg (80-100)
[2023-01-13] VITALS (18 sets, daily range): BP systolic 100–120; BP diastolic 53–69
[2023-01-13 03:32] LABS: BASOPHILS ABSOLUTE AUTO 0.04 K/mm3 (0.00-0.23); BASOPHILS PERCENT AUTO 0 % (0-2); EOSINOPHILS ABSOLUTE AUTO 0.21 K/mm3 (0.00-0.68); EOSINOPHILS PERCENT AUTO 2 % (0-6); Hematocrit 35.9 % (37.0-53.0); Hemoglobin 11.4 g/dL (13.5-17.5); IMMATURE GRAN ABSOLUTE AUTO 0.14 K/mm3 (0.00-0.10); IMMATURE GRAN PERCENT AUTO 1 % (0-1); LYMPHOCYTES PERCENT AUTO 9 % (21-46); MONOCYTES ABSOLUTE AUTO 1.48 K/mm3 (0.16-1.47); MONOCYTES PERCENT AUTO 12 % (4-13); Mean Corpuscular HGB 32.6 pg (26.0-34.0); Mean Corpuscular HGB Conc 31.8 g/dL (31.5-36.5); Mean Corpuscular Volume 103 fL (80-100); Mean Platelet Volume 10.5 fL (9.1-12.4); NEUTROPHILS ABSOLUTE AUTO 9.79 K/mm3 (1.96-9.15); NEUTROPHILS PERCENT AUTO 77 % (41-73); NRBC ABSOLUTE 0.02 K/mm3 (0.00-0.02); NRBC Auto 0.2 /100 WBC (0.0-0.2); Platelet Count 171 K/mm3 (150-400); RDW Coefficient Variation 21.6 % (11.7-14.2); RDW Standard Deviation 80.6 fL (35.1-46.3); White Blood Cell Count 12.76 K/mm3 (4.00-11.30)
[2023-01-13 03:51] LABS: Bun/Creatinine Ratio 25.7 (12.0-20.0); Creatinine, Blood 1.05 mg/dL (0.60-1.20); Magnesium, Blood 2.5 mg/dL (1.6-2.4); Phosphorus, Blood 5.7 mg/dL (2.5-4.9); Potassium, Blood 3.4 mmol/L (3.5-5.5)
[2023-01-13 05:21] LABS: PO2 Arterial 58.1 mmHg (80-100); pH Blood Arterial 7.37 (7.35-7.45)
[2023-01-13 05:23] LABS: PCO2 Arterial 73.3 mmHg (35-45)
--- NOTE | 2023-01-13 06:27 | NUR ---
SHIFT SUMMARY PATIENT ON BIPAP FOR DECREASING O2 SATURATION OVERNIGHT AND WORSENING CO2. PATIETN TOLERATING BIPAP. PATIENT WITH MULTIPLE BEATS OF ECTOPY, PACED AND IN AFIB. VS OTHERWISE STABLE. PATIENT ALERT TO SELF AND KNOWS HE IS AT AT HOSPITAL. EASILY REORIENTED.
--- NOTE | 2023-01-13 17:59 | NUR ---
Transfered patient to PCU room 10 at approximately 1730. Report given to PLATE SHOP HELPER. Pt transfered on recliner, vs stable. All pt belongings taken with patient to PCU.
--- NOTE | 2023-01-13 19:10 | NUR ---
Pt transfered to room at approx 1730. No acute changes noted. Will continue to monitor until report given to oncoming rn.
[2023-01-14] VITALS (7 sets, daily range): BP systolic 109–139; BP diastolic 47–77
[2023-01-14 03:45] LABS: BASOPHILS ABSOLUTE AUTO 0.06 K/mm3 (0.00-0.23); BASOPHILS PERCENT AUTO 1 % (0-2); EOSINOPHILS ABSOLUTE AUTO 0.45 K/mm3 (0.00-0.68); EOSINOPHILS PERCENT AUTO 4 % (0-6); Hemoglobin 11.6 g/dL (13.5-17.5); IMMATURE GRAN ABSOLUTE AUTO 0.09 K/mm3 (0.00-0.10); IMMATURE GRAN PERCENT AUTO 1 % (0-1); LYMPHOCYTES ABSOLUTE AUTO 1.16 K/mm3 (0.84-5.20); LYMPHOCYTES PERCENT AUTO 11 % (21-46); MONOCYTES PERCENT AUTO 16 % (4-13); Mean Corpuscular HGB 33.1 pg (26.0-34.0); Mean Corpuscular HGB Conc 32.2 g/dL (31.5-36.5); Mean Corpuscular Volume 103 fL (80-100); Mean Platelet Volume 11.5 fL (9.1-12.4); NEUTROPHILS ABSOLUTE AUTO 7.32 K/mm3 (1.96-9.15); NEUTROPHILS PERCENT AUTO 68 % (41-73); NRBC ABSOLUTE 0.02 K/mm3 (0.00-0.02); NRBC Auto 0.2 /100 WBC (0.0-0.2); Platelet Count 194 K/mm3 (150-400); RDW Coefficient Variation 20.4 % (11.7-14.2); RDW Standard Deviation 76.9 fL (35.1-46.3); White Blood Cell Count 10.78 K/mm3 (4.00-11.30)
[2023-01-14 04:03] LABS: Bun/Creatinine Ratio 25.2 (12.0-20.0); Calcium, Blood 8.9 mg/dL (8.5-10.1); Creatinine, Blood 1.15 mg/dL (0.60-1.20); Magnesium, Blood 2.5 mg/dL (1.6-2.4); Phosphorus, Blood 4.2 mg/dL (2.5-4.9); Potassium, Blood 3.6 mmol/L (3.5-5.5)
--- NOTE | 2023-01-14 06:17 | NUR ---
SHIFT SUMMARY PATIENT ALERT, ORIENTED x2. VITALS STABLE DURING THE NIGHT, PATIENT ON 3L NC WHILE AWAKE, ON BIPAP SINCE AROUND 2300, TOLERATING WELL, SPO2 >90%. DENIES CHEST PAIN/SOB. SCHAEFFER IN PLACE DRAINING DARK YELLOW URINE TO GRAVITY. TURNED Q2. SISTER ALEXANDER CALLED THIS AM FOR UPDATE, STATED SHE WILL CALL PATIENT AFTER BREAKFAST. NO OTHER SIGNIFICANT CHANGES, WILL REPORT TO DAY SHIFT RN. PATIENT EDUCATED ON IGNITION RISK WHEN OXYGEN IS IN USE. PATIENT IS CONFUSED, BUT VERBALIZED UNDERSTANDING. NO SIGNS OF IGNITION RISK AT THIS TIME. WILL CONTINUE TO MONITOR RISK.
--- NOTE | 2023-01-14 18:43 | NUR ---
Shift Summary Pt alert, oriented X2; calm and cooperative with care. Pt up in recliner for majority of day, ble elevated t/o shift. Pt denies pain, chest pain/pressure, sob, nauses, dizziness and numb/tingling. Medical status, discontinue tele, Bp stable. Spo2 >90% on ra 4l o2 via nc while awake and Avaps 8, 30% fio2 while sleeping. Dowell in patent and draining. Abd soft, nontender, bt+. Other vss. No other acute changes noted. Will continue to monitor. Patient and family educated re: ignition sources and risk of injury while o2 is in use. Patient denies smoking and patient and family verbalize understanding.
[2023-01-15 03:07] VITALS: BP 142/95
[2023-01-15 04:51] LABS: BASOPHILS ABSOLUTE AUTO 0.07 K/mm3 (0.00-0.23); BASOPHILS PERCENT AUTO 1 % (0-2); EOSINOPHILS ABSOLUTE AUTO 0.46 K/mm3 (0.00-0.68); EOSINOPHILS PERCENT AUTO 4 % (0-6); Hematocrit 40.3 % (37.0-53.0); Hemoglobin 13.3 g/dL (13.5-17.5); IMMATURE GRAN ABSOLUTE AUTO 0.11 K/mm3 (0.00-0.10); IMMATURE GRAN PERCENT AUTO 1 % (0-1); LYMPHOCYTES ABSOLUTE AUTO 1.25 K/mm3 (0.84-5.20); LYMPHOCYTES PERCENT AUTO 12 % (21-46); MONOCYTES ABSOLUTE AUTO 1.75 K/mm3 (0.16-1.47); MONOCYTES PERCENT AUTO 16 % (4-13); Mean Corpuscular HGB 32.7 pg (26.0-34.0); Mean Corpuscular Volume 99 fL (80-100); Mean Platelet Volume 10.7 fL (9.1-12.4); NEUTROPHILS ABSOLUTE AUTO 7.08 K/mm3 (1.96-9.15); NEUTROPHILS PERCENT AUTO 66 % (41-73); NRBC ABSOLUTE 0.02 K/mm3 (0.00-0.02); NRBC Auto 0.2 /100 WBC (0.0-0.2); Platelet Count 225 K/mm3 (150-400); RDW Coefficient Variation 19.4 % (11.7-14.2); RDW Standard Deviation 70.1 fL (35.1-46.3); Red Blood Cell Count 4.07 M/mm3 (4.30-5.90); White Blood Cell Count 10.72 K/mm3 (4.00-11.30)
[2023-01-15 05:13] LABS: Bun/Creatinine Ratio 31.4 (12.0-20.0); Calcium, Blood 9.4 mg/dL (8.5-10.1); Creatinine, Blood 0.86 mg/dL (0.60-1.20); Potassium, Blood 3.3 mmol/L (3.5-5.5)
--- NOTE | 2023-01-15 05:28 | NUR ---
SHIFT SUMMARY: ASSUME CARE OF PATIENT AT 2326. REPORT RECEIVED FROM TATUM RIOS. PATIENT A&OX2. PLEASANT AND COOPERATIVE c CARE. MED STATUS c NO TELE. MAKSIM WAS DC'D AT AROUND 2009. PATIENT IS INCONTINENT OF URINE T/O SHIFT. LUIS CARE, ATTENDS CHANGED AND REPOSITIONED T/O SHIFT. PATIENT ON 4L NC WHILE AWAKE, ON BIPAP WHEN SLEEPING, TOLERATING WELL c SPO2 ABOVE 90% T/O SHIFT. PATIENT REPORTS PAIN/DISCOMFORT 03/25 TO URETHRA. MEDICATED X1 c TYLENOL, c ADEQUATE RELIEF. DENIES CP/PRESSURE, N/V, SOB. PIV TO L FOREARM AND R WRIST SALINE LOCKED. VITAL SIGNS REVIEWED. PATIENT SLEPT ON AND OFF T/O SHIFT. RECEIVED SCHEDULED MEDS PER EMAR. NO NEW ACUTE CHANGES THIS SHIFT. BED ALARM ON FOR SAFETY. CALL LIGHT IN REACH. PATIENT EDUCATED ON NON SMOKING CAMPUS AND THE RISK OF INJURY WELL IGNITION SOURCES WHILE ON OXYGEN. PATIENT DENIES SMOKING AND STATED UNDERSTANDING AND NO FURTHER QUESTIONS AT THIS TIME.
[2023-01-15 07:47] VITALS: BP 144/62
--- NOTE | 2023-01-15 07:48 | NUR ---
AM NOTE Pt alert, oriented to self, calm and cooperative with care. Pt up to chair with one person assist, chair alarm in place. Pt denies pain, chest pain/pressure, sob, nausea, dizziness and numb/tingling. Bp and hr stable. Spo2 >90% on 4l o2 via nc, breathing even and unlabored. Abd soft nontender, +bt noted. No other acute changes noted. Will continue to monitor.
[2023-01-15 11:15] VITALS: BP 135/70
--- NOTE | 2023-01-15 17:24 | NUR ---
Shift Summary Pt impulsive t/o shift, multiple attempts to get out of bed or chair t/o shift. Pt up in corner of room and lowered self to ground when staff entered room, pt denies injury at this time, notified. Virtual fleet dispatch manager at bedside, plans for 1:1 sitter for noc shift. Other vss. No othe acute changes noted. Report given to RN assuming care of patient.
--- NOTE | 2023-01-15 19:45 | NUR ---
ASSUMPTION OF CARE ASSUMED CARE AT 1930. PATIENT MORE SOMNULENT THIS ASSESSMENT THAN PREVIOUS SHIFTS BUT ALERT, NO CHANGES TO MENTATION. VITALS STABLE, PATIENT ON 4L NC WITH O2 SAT >90%. VIRTUAL GOLD AND SILVER ASSAYER DCd D/T 1:1 CLINCAL SITTER. BED ALARM ON. PATIENT RESTING IN BED WATCHING TV, CALL LIGHT IN REACH.
[2023-01-15 19:55] VITALS: BP 99/58
[2023-01-15 22:50] VITALS: BP 103/54
--- NOTE | 2023-01-15 22:51 | NUR ---
TRANSFER PATIENT ALERT, ORIENTED x2. VITALS STABLE WHILE PATIENT IN PCU, ON 3L NC WITH 02 SAT >90%, NO TELE. 1:1 SITTER AT BEDSIDE WHILE IN PCU. REPORT GIVEN TO MEDICAL FLOOR NURSE, PATIENT TRANSFERRED TO MEDICAL ROOM 348. PATIENT TRANSFERRED WITH ALL BELONGINGS AND CHART.
--- NOTE | 2023-01-16 04:30 | NUR ---
SHIFT SUMMARY. PT ARRIVED ON UNIT EARLY IN SHIFT. TRANSFER FROM PCU. SOMEWHAT CONFUSED BUT VERY PLEASANT. SKIN ASSESSMENT REMARKABLE FOR A FEW SPOTS OF REDNESS ON BUTTOCKS THAT WERE DRESSED WITH MEPILEX. BIPAP ON THROUGH EVENING. NO COMPLAINTS OF PAIN THIS SHIFT. BED ALARM IS LEFT ON. BED LOCKED IN LOWEST POSITION. CALL LIGHT LEFT WITHIN REACH.
[2023-01-16 06:10] VITALS: BP 147/80
[2023-01-16 06:21] LABS: Bun/Creatinine Ratio 37.6 (12.0-20.0); Calcium, Blood 8.5 mg/dL (8.5-10.1); Creatinine, Blood 0.93 mg/dL (0.60-1.20); Potassium, Blood 3.3 mmol/L (3.5-5.5)
[2023-01-16 07:21] VITALS: BP 107/60
[2023-01-16 15:24] VITALS: BP 96/62
--- NOTE | 2023-01-16 17:42 | NUR ---
PATIENT A/OX2-3, PLEASANT AND COOPERATIVE AND ROHIT TO MAKE NEEDS KNOWN. VSS, ON 2LO2 VIA NC. UP IN ROOM WITH FWW, GB AND 1 ASSIST. MULTIPLE EPISODES OF DIARRHEA TODAY. PATIENT ON PROBIOTIC AND ABX ARE NOW D/C'D. USING URINAL TO VOID WITH ASSISTANCE. PATIENT TOLERATING DIET. CRUSHING PILLS IN PUDDING. DENIES ANY PAIN OR DISCOMFORT. SNF AT DISCHARGE. EDUCATED PATIENT REGARDING IGNITION SOURCES AND RISK OF INJURY WHILE O2 IN USE. PATIENT VERBALIZES UNDERSTANDING.
[2023-01-16 20:23] VITALS: BP 128/55
[2023-01-17 04:09] VITALS: BP 111/50
[2023-01-17 05:01] LABS: BASOPHILS ABSOLUTE AUTO 0.06 K/mm3 (0.00-0.23); BASOPHILS PERCENT AUTO 1 % (0-2); EOSINOPHILS ABSOLUTE AUTO 0.46 K/mm3 (0.00-0.68); EOSINOPHILS PERCENT AUTO 5 % (0-6); Hematocrit 37.5 % (37.0-53.0); Hemoglobin 12.6 g/dL (13.5-17.5); IMMATURE GRAN ABSOLUTE AUTO 0.06 K/mm3 (0.00-0.10); IMMATURE GRAN PERCENT AUTO 1 % (0-1); LYMPHOCYTES ABSOLUTE AUTO 1.48 K/mm3 (0.84-5.20); LYMPHOCYTES PERCENT AUTO 17 % (21-46); MONOCYTES ABSOLUTE AUTO 1.75 K/mm3 (0.16-1.47); MONOCYTES PERCENT AUTO 20 % (4-13); Mean Corpuscular HGB 33.2 pg (26.0-34.0); Mean Corpuscular HGB Conc 33.6 g/dL (31.5-36.5); Mean Corpuscular Volume 99 fL (80-100); Mean Platelet Volume 11.8 fL (9.1-12.4); NEUTROPHILS PERCENT AUTO 56 % (41-73); Platelet Count 277 K/mm3 (150-400); RDW Coefficient Variation 18.8 % (11.7-14.2); RDW Standard Deviation 68.7 fL (35.1-46.3); Red Blood Cell Count 3.79 M/mm3 (4.30-5.90); White Blood Cell Count 8.71 K/mm3 (4.00-11.30)
[2023-01-17 05:54] LABS: Calcium, Blood 9.3 mg/dL (8.5-10.1); Creatinine, Blood 0.81 mg/dL (0.60-1.20); Potassium, Blood 3.4 mmol/L (3.5-5.5)
[2023-01-17 07:08] VITALS: BP 126/66
--- NOTE | 2023-01-17 11:52 | NUR ---
Met with pt at bedside this morning. He's alert, oriented, pleasant. Has oxygen in place, and sitting up on side of the bed. We chatted for a few moments about him going to SNF for strengthening. He mentioned not knowing where his cell phone and wallet are, and asked if I could check the drawers in his room. We looked together through both his belongings back and drawers, with neither found. No belongings slip in chart, and security states they don't have anything on file for him. Placed a call to his local CG "Salma", and left a voicemail requesting return call. Also placed call to pt's daughter who is on the [facility], she states this is the first she's heard of it. By reading pt's chart, it does appear pt was confused upon being brought in via ambulance. Will await Salma's return call.
[2023-01-17 14:03] LABS: C DIFFICILE DNA POSITIVE (Negative)
[2023-01-17 15:07] VITALS: BP 111/57
--- NOTE | 2023-01-17 18:27 | NUR ---
PATIENT A/OX2-3, UP WITH FWW, GB AD 1 ASSIST. PLAN IS FOR SNF DISCHARGE ONCE ACCEPTED. TOLERATING DIET. DIARRHEA IMPROVED TODAY, C-DIFF SENT TO LAB. PLEASANT AND COOPERATIVE WITH CARE, ABLE TO MAKE NEEDS KNOWN. EDUCATED REGARDING IGNITION SOURCES AND RISK OF IMJURY WHILE O2 IN USE. PATIENT DENIES SMOKING.
[2023-01-17 19:28] VITALS: BP 121/73
[2023-01-18 04:32] VITALS: BP 134/59
--- NOTE | 2023-01-18 17:29 | NUR ---
PATIENT A/OX3, FORGETFUL AT TIMES. VSS, ON RA TO 2LO2 TO MAINTAIN SATS. DENIES ANY PAIN OR DISCOMFORT. UP WITH FWW AND 1 ASSIST. DIARRHEA RESOLVING, ON ORAL VANCO FOR C-DIFF. CONTINENT OF BLADDER, USING URINAL AT BEDSIDE. PLAN IS TO DC TOMORROW TO [facility] FOR REHAB. HOURLY ROUNDING TO ASSESS ROOM SAFETY FOR IGNITION SOURCES. EDUCATED PATIENT REGARDING IGNITION SOURCES AND RISK FOR INJULY WHILE ON O2.
[2023-01-18 19:49] VITALS: BP 113/56
[2023-01-18] MEDS ORDERED: POTCHL20ER PO (23:27)
[2023-01-18] MEDS ORDERED: MIRT15ST PO (23:30)
[2023-01-18] MEDS ORDERED: MULVITA PO (23:31)
[2023-01-18] MEDS ORDERED: Vitamin B Comple1 EA PO (23:33)
[2023-01-18] MEDS ORDERED: SENNA LAXATIVE8.6 MG PO (23:34)
[2023-01-18] MEDS ORDERED: MIRALAX17 GM PO (23:34)
[2023-01-18] MEDS ORDERED: CO Q10100 MG PO (23:35)
[2023-01-18] MEDS ORDERED: DOCU100 PO (23:35)
[2023-01-18] MEDS ORDERED: Vitamin D1000 UNI1 PO (23:36)
[2023-01-19 05:00] VITALS: BP 115/52
[2023-01-19 05:16] LABS: BASOPHILS PERCENT AUTO 2 % (0-2); EOSINOPHILS ABSOLUTE AUTO 0.27 K/mm3 (0.00-0.68); EOSINOPHILS PERCENT AUTO 4 % (0-6); Hematocrit 36.2 % (37.0-53.0); IMMATURE GRAN ABSOLUTE AUTO 0.03 K/mm3 (0.00-0.10); IMMATURE GRAN PERCENT AUTO 0 % (0-1); LYMPHOCYTES ABSOLUTE AUTO 1.36 K/mm3 (0.84-5.20); LYMPHOCYTES PERCENT AUTO 20 % (21-46); MONOCYTES ABSOLUTE AUTO 1.38 K/mm3 (0.16-1.47); MONOCYTES PERCENT AUTO 21 % (4-13); Mean Corpuscular HGB 32.9 pg (26.0-34.0); Mean Corpuscular HGB Conc 33.1 g/dL (31.5-36.5); Mean Corpuscular Volume 99 fL (80-100); Mean Platelet Volume 10.6 fL (9.1-12.4); NEUTROPHILS ABSOLUTE AUTO 3.57 K/mm3 (1.96-9.15); NEUTROPHILS PERCENT AUTO 53 % (41-73); Platelet Count 257 K/mm3 (150-400); RDW Coefficient Variation 18.7 % (11.7-14.2); RDW Standard Deviation 68.4 fL (35.1-46.3); Red Blood Cell Count 3.65 M/mm3 (4.30-5.90); White Blood Cell Count 6.71 K/mm3 (4.00-11.30)
[2023-01-19 06:08] LABS: Bun/Creatinine Ratio 45.3 (12.0-20.0); Calcium, Blood 9.5 mg/dL (8.5-10.1); Creatinine, Blood 0.93 mg/dL (0.60-1.20); Potassium, Blood 3.8 mmol/L (3.5-5.5)
--- NOTE | 2023-01-19 06:49 | NUR ---
SHIFT SUMMARY PT A&OX3 AND PLEASANTLY CONFUSED. PT USES URINAL INDEPENDENTLY WHILE SITTING AT SIDE OF BED. PT USED URINAL FREQUENTLY T/O NIGHT WITH SMALL AMOUNTS OF OUTPUT EACH TIME. PT ON 3L OF OXYGEN AT START OF SHIFT AND SATING IN THE HIGH 90s. PT USED BIPAP FOR SLEEP AND WAS COMPLIANT WITH KEEPING ON DURING THE NIGHT. PER CONTINOUS BIOX, PT'S HR DROPPED DOWN TO THE 40'S FOR A BRIEF SECOND AND THEN WOULD JUMP BACK UP TO THE 50'S. PT ASYMPTOMATIC. PT WAS ABLE TO GET SEVERAL HOURS OF UNITERUPTED SLEEP DURING THE NIGHT. BED LINEN CHANGED TWICE D/T MISSING URINAL. VSS. PT REMINDED AT START OF SHIFT OF POSSIBLE IGNITION SOURCES AND NO SMOKING POLICY. BED IN LOWEST POSITION AND CALL LIGHT IN REACH.
[2023-01-19 07:46] VITALS: BP 127/65
[2023-01-19 15:44] VITALS: BP 125/77
[2023-01-19] MEDS ORDERED: LISI5 PO (15:47)
[2023-01-19] MEDS ORDERED: BUME1 PO (15:47)
[2023-01-19] MEDS ORDERED: Lisinopril2.5 MG PO (15:47)
[2023-01-19] MEDS ORDERED: LACT PO (15:47)
[2023-01-19] MEDS ORDERED: VANCOCIN HCL125 MG PO (15:48)
[2023-01-19 16:09] LABS: SARS-Cov-2 (COVID-19) PCR, MMC NEGATIVE (NEGATIVE)
--- NOTE | 2023-01-19 17:51 | NUR ---
DC TO SNF PT TO [facility] VIA W/C WITH ALL PERSONAL BELONGINGS VIA MED TRANSPORT. DC PKT GIVEN TO TRANSPORT PERSONNEL. REPORT CALLED TO RECEIVING RN AT [facility].
== END 2023-01-19 17:36 | DRG 208 ==
LOC: ER 17:08 → ICUE 20:14 → PCU 20:14 → ICUE 20:30 → PCU 01-13 17:24 → MEDS 01-15 22:51 → ENPENDDIS 01-19 15:09 → MEDS 01-19 17:36
PROVIDERS: Emergency Medicine; Internal Medicine; Internal Medicine Critical Care Medicine; Nurse Practitioner Acute Care; Student in an Organized Health Care Education/Training Program; ADMIT Internal Medicine
PROC: 5A09357 Assistance with Respiratory Ventilation, Less than 24 Consecutive Hours, Continuous Positive Airway Pressure (ICD-10-PCS; principal; 2023-01-09)
PROC: 0BH17EZ Insertion of Endotracheal Airway into Trachea, Via Natural or Artificial Opening (ICD-10-PCS; 2023-01-09)
PROC: 5A1945Z Respiratory Ventilation, 24-96 Consecutive Hours (ICD-10-PCS; 2023-01-09)
PROC: 4A133R1 Monitoring of Arterial Saturation, Peripheral, Percutaneous Approach (ICD-10-PCS; 2023-01-09)
PROC: 0DH67UZ Insertion of Feeding Device into Stomach, Via Natural or Artificial Opening (ICD-10-PCS; 2023-01-10)
PROC: 3E0G76Z Introduction of Nutritional Substance into Upper GI, Via Natural or Artificial Opening (ICD-10-PCS; 2023-01-10)
DX: J96.01 Acute respiratory failure with hypoxia (principal); G92.8 Other toxic encephalopathy; I50.43 Acute on chronic combined systolic (congestive) and diastolic (congestive) heart failure; I13.0 Hypertensive heart and chronic kidney disease with heart failure and stage 1 through stage 4 chronic kidney disease, or unspecified chronic kidney disease; E87.3 Alkalosis; N17.9 Acute kidney failure, unspecified; I48.20 Chronic atrial fibrillation, unspecified; J44.1 Chronic obstructive pulmonary disease with (acute) exacerbation; N39.0 Urinary tract infection, site not specified; A04.72 Enterocolitis due to Clostridium difficile, not specified as recurrent; I48.92 Unspecified atrial flutter; J96.02 Acute respiratory failure with hypercapnia; Z20.822 Contact with and (suspected) exposure to COVID-19; D53.9 Nutritional anemia, unspecified; G89.29 Other chronic pain; K21.9 Gastro-esophageal reflux disease without esophagitis; B95.2 Enterococcus as the cause of diseases classified elsewhere; E66.9 Obesity, unspecified; B96.20 Unspecified Escherichia coli [E. coli] as the cause of diseases classified elsewhere; N40.0 Benign prostatic hyperplasia without lower urinary tract symptoms; G47.33 Obstructive sleep apnea (adult) (pediatric); N18.30 Chronic kidney disease, stage 3 unspecified; E87.6 Hypokalemia; E83.42 Hypomagnesemia; M54.50 Low back pain, unspecified; I07.1 Rheumatic tricuspid insufficiency; E78.5 Hyperlipidemia, unspecified; M19.90 Unspecified osteoarthritis, unspecified site; E11.22 Type 2 diabetes mellitus with diabetic chronic kidney disease; F17.200 Nicotine dependence, unspecified, uncomplicated; I49.3 Ventricular premature depolarization; I45.10 Unspecified right bundle-branch block; Z90.49 Acquired absence of other specified parts of digestive tract; Z98.890 Other specified postprocedural states; Z79.899 Other long term (current) drug therapy; Z79.01 Long term (current) use of anticoagulants; Z99.81 Dependence on supplemental oxygen; Z68.33 Body mass index [BMI] 33.0-33.9, adult; Z88.8 Allergy status to other drugs, medicaments and biological substances; Z86.74 Personal history of sudden cardiac arrest; Z87.448 Personal history of other diseases of urinary system; Z79.51 Long term (current) use of inhaled steroids; Z79.02 Long term (current) use of antithrombotics/antiplatelets; Z79.811 Long term (current) use of aromatase inhibitors; Z95.0 Presence of cardiac pacemaker
CPT/HCPCS: 31500; 31720; 36415; 36600; 51702; 71045; 80048; 80053; 81001; 82271; 82330; 82803; 83735; 83880; 84100; 84484; 85025; 87040; 87070; 87077; 87086; 87186; 87205; 87324; 87493; 92526; 92610; 93005; 93010; 93306; 94002; 94003; 94640; 94644; 94660; 94664; 94667; 94760; 94762; 96374-59; 97110; 97116; 97129; 97130; 97162; 97166; 97530; 97535; 99285-25; A9270; C9113; J0295; J0330; J0456; J0696; J1120; J1650; J1940; J2060; J2704; J2930; J3475; J3480; J7050; U0002